=== PATIENT | male | born 1980 | race Caucasian/White ===

== ENCOUNTER 2019-03-25 11:10 | Observation (INO) | payer BC, OTHER ==
[2019-03-25] MEDS ORDERED: MVI, Adult with Vitamin K 10 ML, Thiamine 100 MG, Folic Acid 1 MG in Sodium Chloride 0.... IV ONE ×8 (11:24→12:20)
[2019-03-25] MEDS ORDERED: chlordiazePOXIDE 25 MG Cap PO ONE ×2 (11:25→12:20)
[2019-03-25] MEDS ORDERED: LORazepam 2 MG/ML SDV IVPUSH ONE ×3 (11:25→12:47)
--- NOTE | 2019-03-25 11:32 | EDM.PDOC ---
ED HPI GENERAL MEDICAL PROBLEM - General Chief Complaint: Drug or Alcohol Abuse Stated Complaint: POSSIBLE ALCOHOL POISONING Time Seen by Provider: 03/25/19 11:13 Source of Information: Reports: Patient History Limitations: Reports: No Limitations - History of Present Illness INITIAL COMMENTS - FREE TEXT/NARRATIVE: HISTORY AND PHYSICAL: History of present illness: Patient is a 39-year-old male who presents to the ED today with concern of "overdoing alcohol drinking ". Patient states his last drink was last night at 2 a.m. Patient states he drank 2 L of hard alcohol last night and states he is a daily drinker. Patient states that he has not had withdrawal symptoms before. Patient states that this morning he began shaking and becoming sweaty and anxious. Patient states he does feel slightly short of breath. Patient states he also smokes about one half pack of cigarettes a day and has so for many years as well as chewing tobacco but denies any other substance use. Patient denies fever, chest pain, or cough. Denies headache, neck stiff ness, change in vision, syncope, or near syncope. Denies nausea, vomiting, abdominal pain, diarrhea, constipation, or dysuria. Has not noted any blood in urine or stool. Review of systems: As per history of present illness and below otherwise all systems reviewed and negative. Past medical history: As per history of present illness and as reviewed below otherwise noncontributory. Surgical history: As per history of present illness and as reviewed below otherwise noncontributory. Social history: See social history for further information Family history: As per history of present illness and as reviewed below otherwise noncontributory. Physical exam: General: Patient is alert, oriented, and in no acute distress. Patient laying on exam table but diaphoretic, anxious, and shaking. HEENT: Atraumatic, normocephalic, pupils equal and reactive bilaterally, negative for conjunctival pallor or scleral icterus, mucous membranes moist, TMs normal bilaterally, throat clear, neck supple, nontender, trachea midline. No drooling or trismus noted. No meningeal signs. No hot potato voice noted. Lungs: Clear to auscultation, breath sounds equal bilaterally, chest nontender. Heart: Tachycardic, S1S2, regular rate and rhythm without overt murmur Abdomen: Soft, nondistended, nontender. Negative for masses or hepatosplenomegaly. Negative for costovertebral tenderness. Pelvis: Stable nontender. Genitourinary: Deferred. Rectal: Deferred. Skin: Intact, warm, moist. No lesions or rashes noted. Extremities: Atraumatic, negative for cords or calf pain. Neurovascular unremarkable. Neuro: Awake, alert, oriented. Cranial nerves II through XII unremarkable. Cerebellum unremarkable. Motor and sensory unremarkable throughout. Exam nonfocal. Notes: Dr. Denis verbally involved in patient care. Dr. Wilson, hospitalist crime prevention worker, consulted on patient and will admit to ICU. Voices understanding and is agreeable to plan of care. Denies any further questions or concerns at this time. Diagnostics: CBC, CMP, UA, EKG, chest x-ray, troponin, magnesium, salicylate, acetaminophen, ethanol level, Therapeutics: Banana bag, Librium, Ativan Impression: Acute alcohol withdrawal Transaminitis Plan: 1. Admit to Dr. Wilson to ICU Definitive disposition and diagnosis as appropriate pending reevaluation and review of above. - Related Data Allergies Allergy/AdvReac Type Severity Reaction Status Date / Time Iodinated Contrast Media Allergy Redness Verified 03/25/19 11:14 [Iodinated Contrast Media - IV Dye] morphine Allergy Redness Verified 03/25/19 11:14 shellfish derived Allergy Redness Verified 03/25/19 11:14 Home Meds: Home Meds . [No Known Home Meds] 01/02/15 [History] Past Medical History HEENT History: Reports: None Cardiovascular History: Reports: None Respiratory History: Reports: None Gastrointestinal History: Reports: None Genitourinary History: Reports: None Musculoskeletal History: Reports: Amputation Neurological History: Reports: None Psychiatric History: Reports: None Endocrine/Metabolic History: Reports: None Hematologic History: Reports: None Immunologic History: Reports: None Oncologic (Cancer) History: Reports: None Dermatologic History: Reports: None - Past Surgical History Head Surgeries/Procedures: Reports: None HEENT Surgical History: Reports: None Cardiovascular Surgical History: Reports: None Respiratory Surgical History: Reports: None GI Surgical History: Reports: None Male Surgical History: Reports: None Endocrine Surgical History: Reports: None Neurological Surgical History: Reports: None Musculoskeletal Surgical History: Reports: Other (See Below) Other Musculoskeletal Surgeries/Procedures:: right 2nd toe removed Oncologic Surgical History: Reports: None Dermatological Surgical History: Reports: None Social & Family History - Family History Family Medical History: Noncontributory - Tobacco Use Smoking Status *Q: Current Every Day Smoker Years of Tobacco use: 25 Packs/Tins Daily: 1 - Caffeine Use Caffeine Use: Reports: Energy Drinks - Alcohol Use Days Per Week of Alcohol Use: 7 Number of Drinks Per Day: 2 Total Drinks Per Week: 14 - Recreational Drug Use Recreational Drug Use: No ED ROS GENERAL - Review of Systems Review Of Systems: ROS reveals no pertinent complaints other than HPI. ED EXAM, GENERAL - Physical Exam Exam: See Below (See dictation) Course - Vital Signs Last Recorded V/S: Last Vital Signs Temp 98 F 03/25/19 12:18 Pulse 96 03/25/19 12:18 Resp 13 03/25/19 12:18 BP 156/95 H 03/25/19 12:18 Pulse Ox 95 03/25/19 12:18 - Orders/Labs/Meds Orders: Active Orders 24 hr Category Date Time Status Admission Status [Patient Status] [ADT] Stat ADT 03/25/19 12:46 Ordered EKG Documentation Completion [RC] STAT Care 03/25/19 11:18 Active DRUG SCREEN, URINE [URCHEM] Stat Lab 03/25/19 11:18 Ordered UA RFX ELODIA AND CULT IF INDIC [URIN] Stat Lab 03/25/19 11:17 Ordered MVI, Adult with Vitamin K [Infuvite Adult] 10 ml Med 03/25/19 12:20 Active Thiamine [Vitamin B-1] 100 mg Folic Acid 1 mg Sodium Chloride 0.9% [Normal Saline] 1,000 ml IV ONETIME Medication Orders Multivitamins/Minerals 10 ml/Thiamine HCl 100 mg/ Folic Acid 1 mg/ Sodium Chloride 1,011.2 mls @ 999 mls/hr IV ONETIME ONE Stop: 03/25/19 13:20 Last Admin: 03/25/19 12:19 Dose: 999 mls/hr Labs: Laboratory Tests 03/25/19 03/25/19 03/25/19 Range/Units 11:18 11:20 11:20 WBC 8.22 (4.0-11.0) K/uL RBC 5.34 (4.50-5.90) M/uL Hgb 17.6 H (13.0-17.0) g/dL Hct 48.2 (38.0-50.0) % MCV 90.3 (80.0-98.0) fL MCH 33.0 H (27.0-32.0) pg MCHC 36.5 (31.0-37.0) g/dL RDW Std Deviation 44.7 (28.0-62.0) fl RDW Coeff of Fredis 14 (11.0-15.0) % Plt Count 99 L (150-400) K/uL MPV 11.00 (7.40-12.00) fL Neut % (Auto) 73.1 (48.0-80.0) % Lymph % (Auto) 20.4 (16.0-40.0) % [place] % (Auto) 6.2 (0.0-15.0) % Eos % (Auto) 0.1 (0.0-7.0) % Baso % (Auto) 0.2 (0.0-1.5) % Neut # (Auto) 6.0 H (1.4-5.7) K/uL Lymph # (Auto) 1.7 (0.6-2.4) K/uL [place] # (Auto) 0.5 (0.0-0.8) K/uL Eos # (Auto) 0.0 (0.0-0.7) K/uL Baso # (Auto) 0.0 (0.0-0.1) K/uL Nucleated RBC % 0.0 /100WBC Nucleated RBCs # 0 K/uL INR 0.92 Sodium 129 L (136-148) mmol/L Potassium 3.6 (3.5-5.1) mmol/L Chloride 87 L (98-107) mmol/L Carbon Dioxide 21.1 (21.0-32.0) mmol/L BUN 9 (7.0-18.0) mg/dL Creatinine 0.9 (0.8-1.3) mg/dL Est Cr Clr Drug Dosing 120.95 mL/min Estimated GFR (MDRD) > 60.0 ml/min Glucose 119 H (74-106) mg/dL Calcium 9.8 (8.5-10.1) mg/dL Magnesium 1.3 L (1.8-2.4) mg/dL Total Bilirubin 4.1 H (0.2-1.0) mg/dL AST 237 H (15-37) IU/L ALT 214 H (14-63) IU/L Alkaline Phosphatase 98 (46-116) U/L Troponin I < 0.050 (0.000-0.056) ng/mL Total Protein 8.0 (6.4-8.2) g/dL Albumin 4.5 (3.4-5.0) g/dL Globulin 3.5 (2.6-4.0) g/dL Albumin/Globulin Ratio 1.3 (0.9-1.6) Lipase 172 (73-393) U/L TSH 3rd Generation 2.57 (0.36-3.74) uIU/mL Salicylates <0.2 (0-20) mg/dL Acetaminophen <2.0 ug/mL Ethyl Alcohol 36 mg/dL Meds: Medications Generic Name Dose Route Start Last Admin Trade Name Freq PRN Reason Stop Dose Admin Multivitamins/Minerals 10 ml/ 1,011.2 mls @ 999 mls/hr 03/25/19 12:20 12:19 Thiamine HCl 100 mg/ Folic IV 03/25/19 13:20 999 mls/hr Acid 1 mg/ Sodium Chloride ONETIME ONE Administration Discontinued Medications Generic Name Dose Route Start Last Admin Trade Name Freq PRN Reason Stop Dose Admin Chlordiazepoxide HCl 25 mg 03/25/19 11:25 03/25/19 12:21 Librium PO 03/25/19 11:26 25 mg ONETIME ONE Administration Chlordiazepoxide HCl 25 mg 03/25/19 12:20 03/25/19 12:20 Librium PO 03/25/19 12:21 25 mg ONETIME ONE Administration Multivitamins/Minerals 10 ml/ 1,011.2 mls @ 999 mls/min 03/25/19 11:24 12:47 Thiamine HCl 100 mg/ Folic IV 03/25/19 11:25 Not Given Acid 1 mg/ Sodium Chloride ONETIME ONE Lorazepam 2 mg 03/25/19 11:25 03/25/19 11:29 Ativan IVPUSH 03/25/19 11:26 2 mg ONETIME ONE Administration Lorazepam 1 mg 03/25/19 12:22 03/25/19 12:29 Ativan IVPUSH 03/25/19 12:23 1 mg ONETIME ONE Administration Lorazepam 1 mg 10/30/19 12:47 Ativan IVPUSH 03/25/19 12:48 ONETIME ONE Departure - Departure Time of Disposition: 12:50 Disposition: Refer to Observation Clinical Impression: Alcohol withdrawal Qualifiers: Complication of substance-induced condition: with unspecified complication Qualified Code(s): F10.239 - Alcohol dependence with withdrawal, unspecified - Discharge Information Referrals: PCP,None [Primary Care Provider] - Forms: ED Department Discharge - My Orders Last 24 Hours: My Active Orders 03/25/19 11:17 UA RFX ELODIA AND CULT IF INDIC [URIN] Stat 03/25/19 11:18 EKG Documentation Completion [RC] STAT DRUG SCREEN, URINE [URCHEM] Stat 03/25/19 12:20 MVI, Adult with Vitamin K [Infuvite Adult] 10 ml Thiamine [Vitamin B-1] 100 mg Folic Acid 1 mg Sodium Chloride 0.9% [Normal Saline] 1,000 ml IV ONETIME 03/25/19 12:46 Admission Status [Patient Status] [ADT] Stat - Assessment/Plan Last 24 Hours: My Active Orders 03/25/19 11:17 UA RFX ELODIA AND CULT IF INDIC [URIN] Stat 03/25/19 11:18 EKG Documentation Completion [RC] STAT DRUG SCREEN, URINE [URCHEM] Stat 03/25/19 12:20 MVI, Adult with Vitamin K [Infuvite Adult] 10 ml Thiamine [Vitamin B-1] 100 mg Folic Acid 1 mg Sodium Chloride 0.9% [Normal Saline] 1,000 ml IV ONETIME 03/25/19 12:46 Admission Status [Patient Status] [ADT] Stat
--- NOTE | 2019-03-25 11:53 | CR ---
Chest: AP view of the chest was obtained utilizing portable technique. Comparison: Prior chest x-ray of 01/02/15. Heart size and mediastinum are normal. Lungs are clear. Bony structures are grossly intact. Impression: Nothing acute is appreciated on portable chest x-ray. Diagnostic code #1 MTDD
[2019-03-25 12:23] LABS: ACETAMINOPHEN <2.0 ug/mL; BLOOD UREA NITROGEN,BUN 9 mg/dL (7.0-18.0); CARBON DIOXIDE,CO2 21.1 mmol/L (21.0-32.0); CHLORIDE,CL 87 mmol/L (98-107); GLUCOSE RANDOM 119 mg/dL (74-106); LIPASE 172 U/L (73-393); POTASSIUM,K 3.6 mmol/L (3.5-5.1); SODIUM,NA 129 mmol/L (136-148)
[2019-03-25] MEDS ORDERED: Ondansetron 4 MG Tab.DIS PO PRN (13:05)
[2019-03-25] MEDS ORDERED: Ondansetron 4 MG/2 ML SDV IVPUSH PRN (13:05)
[2019-03-25] MEDS ORDERED: LORazepam 2 MG/ML SDV IVPUSH PRN ×2 (13:09→13:16)
[2019-03-25] MEDS ORDERED: Magnesium Sulfate/Water 2 GM in Premix Bag 1 BAG IV ONE (13:12)
[2019-03-25] MEDS: Sodium Chloride 0.9% 1,000 ML IV ONE ×2 (13:13→14:06)
[2019-03-25] MEDS ORDERED: Potassium Chloride 20 MEQ Tab.ER PO ONE (13:13)
--- NOTE | 2019-03-25 13:19 | PCM.HP.2 ---
H&P History of Present Illness - General Date of Service: 03/25/19 Admit Problem/Dx: Admission Diagnosis/Problem Admission Diagnosis/Problem Alcohol withdrawal syndrome - History of Present Illness Initial Comments - Free Text/Narative: 39 y/o male with history of alcohol abuse. Presented to the ER in alcohol withdrawal. Has been having some nausea, vomiting, epigastric pain. States he drinks when not off work. Last drink was last night. He drank approximately 2 large vodka bottles. Has been endorsing some black stools. No hemoptysis. Smokes 1 ppd. Denies IV drug use. Lives in [place]. Denies any allergies or abdominal surgeries. In the ER, he was noted to be tachycardic, hypertensive requiring several doses of Ativa. EKG showed sinus tachy. No ST changes. Hemocult was negative. - Related Data Allergies/Adverse Reactions: Allergies Allergy/AdvReac Type Severity Reaction Status Date / Time Iodinated Contrast Media Allergy Redness Verified 03/25/19 11:14 [Iodinated Contrast Media - IV Dye] morphine Allergy Redness Verified 03/25/19 11:14 shellfish derived Allergy Redness Verified 03/25/19 11:14 Home Medications: Home Meds . [No Known Home Meds] 01/02/15 [History] Past Medical History HEENT History: Reports: None Cardiovascular History: Reports: None Respiratory History: Reports: None Gastrointestinal History: Reports: None Genitourinary History: Reports: None Musculoskeletal History: Reports: Amputation Neurological History: Reports: None Psychiatric History: Reports: None Endocrine/Metabolic History: Reports: None Hematologic History: Reports: None Immunologic History: Reports: None Oncologic (Cancer) History: Reports: None Dermatologic History: Reports: None - Past Surgical History Head Surgeries/Procedures: Reports: None HEENT Surgical History: Reports: None Cardiovascular Surgical History: Reports: None Respiratory Surgical History: Reports: None GI Surgical History: Reports: None Male Surgical History: Reports: None Endocrine Surgical History: Reports: None Neurological Surgical History: Reports: None Musculoskeletal Surgical History: Reports: Other (See Below) Other Musculoskeletal Surgeries/Procedures:: right 2nd toe removed Oncologic Surgical History: Reports: None Dermatological Surgical History: Reports: None Social & Family History - Family History Family Medical History: Noncontributory - Tobacco Use Smoking Status *Q: Current Every Day Smoker Years of Tobacco use: 25 Packs/Tins Daily: 1 - Caffeine Use Caffeine Use: Reports: Energy Drinks - Alcohol Use Days Per Week of Alcohol Use: 7 Number of Drinks Per Day: 2 Total Drinks Per Week: 14 - Recreational Drug Use Recreational Drug Use: No H&P Review of Systems - Review of Systems: Review Of Systems: ROS reveals no pertinent complaints other than HPI. Exam - Exam Exam: See Below - Vital Signs Vital Signs: Last Vital Signs Temp 36.6 C 03/25/19 12:18 Pulse 96 03/25/19 12:18 Resp 13 03/25/19 12:18 BP 156/95 H 03/25/19 12:18 Pulse Ox 95 03/25/19 12:18 Weight: 85.2 kg - Exam General: Alert, Oriented, Cooperative, Other (tremulous and diaphoretic) HEENT: Scleral Icterus, Other (dry oral mucosa) Lungs: Clear to Auscultation, Normal Respiratory Effort. No: Crackles, Wheezing Cardiovascular: Regular Rhythm, Tachycardia GI/Abdominal Exam: Other (epigastric pain. No RUQ pain. ) Rectal (Males) Exam: Heme - Stool Extremities: Non-Tender, No Pedal Edema Skin: Warm, Moist Neuro Extensive - Mental Status: Alert, Oriented x3 - Patient Data Lab Results Last 24 hrs: Laboratory Results - last 24 hr 03/25/19 03/25/19 03/25/19 Range/Units 11:18 11:20 11:20 WBC 8.22 (4.0-11.0) K/uL RBC 5.34 (4.50-5.90) M/uL Hgb 17.6 H (13.0-17.0) g/dL Hct 48.2 (38.0-50.0) % MCV 90.3 (80.0-98.0) fL MCH 33.0 H (27.0-32.0) pg MCHC 36.5 (31.0-37.0) g/dL RDW Std Deviation 44.7 (28.0-62.0) fl RDW Coeff of Fredis 14 (11.0-15.0) % Plt Count 99 L (150-400) K/uL MPV 11.00 (7.40-12.00) fL Neut % (Auto) 73.1 (48.0-80.0) % Lymph % (Auto) 20.4 (16.0-40.0) % [place] % (Auto) 6.2 (0.0-15.0) % Eos % (Auto) 0.1 (0.0-7.0) % Baso % (Auto) 0.2 (0.0-1.5) % Neut # (Auto) 6.0 H (1.4-5.7) K/uL Lymph # (Auto) 1.7 (0.6-2.4) K/uL [place] # (Auto) 0.5 (0.0-0.8) K/uL Eos # (Auto) 0.0 (0.0-0.7) K/uL Baso # (Auto) 0.0 (0.0-0.1) K/uL Nucleated RBC % 0.0 /100WBC Nucleated RBCs # 0 K/uL INR 0.92 Sodium 129 L (136-148) mmol/L Potassium 3.6 (3.5-5.1) mmol/L Chloride 87 L (98-107) mmol/L Carbon Dioxide 21.1 (21.0-32.0) mmol/L BUN 9 (7.0-18.0) mg/dL Creatinine 0.9 (0.8-1.3) mg/dL Est Cr Clr Drug Dosing 120.95 mL/min Estimated GFR (MDRD) > 60.0 ml/min Glucose 119 H (74-106) mg/dL Calcium 9.8 (8.5-10.1) mg/dL Magnesium 1.3 L (1.8-2.4) mg/dL Total Bilirubin 4.1 H (0.2-1.0) mg/dL AST 237 H (15-37) IU/L ALT 214 H (14-63) IU/L Alkaline Phosphatase 98 (46-116) U/L Troponin I < 0.050 (0.000-0.056) ng/mL Total Protein 8.0 (6.4-8.2) g/dL Albumin 4.5 (3.4-5.0) g/dL Globulin 3.5 (2.6-4.0) g/dL Albumin/Globulin Ratio 1.3 (0.9-1.6) Lipase 172 (73-393) U/L TSH 3rd Generation 2.57 (0.36-3.74) uIU/mL Salicylates <0.2 (0-20) mg/dL Acetaminophen <2.0 ug/mL Ethyl Alcohol 36 mg/dL Result Diagrams: 03/25/19 11:20 03/25/19 11:20 Problem List Initiated/Reviewed/Updated: Yes Orders Last 24hrs: Active Orders 24 hr Category Date Time Status Admission Status [Patient Status] [ADT] Stat ADT 03/25/19 12:46 Active Antiembolic Devices [RC] PER UNIT ROUTINE Care 03/25/19 13:07 Ordered Bedrest Bathroom Privileges [RC] ASDIRECTED Care 03/25/19 13:05 Ordered CIWAA Assessment [RC] Q4H Care 03/25/19 13:10 Ordered Cardiac Monitoring [RC] CONTINUOUS Care 03/25/19 13:06 Ordered EKG Documentation Completion [RC] STAT Care 03/25/19 11:18 Active Fecal Occult Blood Collection [RC] ASDIRECTED Care 03/25/19 13:15 Ordered Intake and Output [RC] QSHIFT Care 03/25/19 13:06 Ordered Oxygen Therapy [RC] PRN Care 03/25/19 13:06 Ordered VTE/DVT Education [RC] PER UNIT ROUTINE Care 03/25/19 13:06 Ordered Vital Signs [RC] Q4H Care 03/25/19 13:06 Ordered Nothing per Oral Now Diet [DIET] Diet 03/25/19 Dinner Ordered CBC WITH AUTO DIFF [HEME] AM Lab 03/26/19 05:11 Ordered CBC WITH AUTO DIFF [HEME] AM Lab 03/27/19 05:11 Ordered COMPREHENSIVE METABOLIC PN,CMP [CHEM] AM Lab 03/26/19 05:11 Ordered COMPREHENSIVE METABOLIC PN,CMP [CHEM] AM Lab 03/27/19 05:11 Ordered DRUG SCREEN, URINE [URCHEM] Stat Lab 03/25/19 11:18 Ordered MAGNESIUM [CHEM] AM Lab 03/26/19 05:11 Ordered UA RFX ELODIA AND CULT IF INDIC [URIN] Stat Lab 03/25/19 11:17 Ordered Folic Acid Med 03/25/19 21:00 Ordered 1 mg PO BEDTIME LORazepam [Ativan] Med 03/25/19 13:16 Ordered 2 mg IVPUSH ONETIME PRN LORazepam [Ativan] Med 03/25/19 13:09 Ordered See Protocol IVPUSH Q4H PRN MVI, Adult with Vitamin K [Infuvite Adult] 10 ml Med 03/25/19 12:20 Active Thiamine [Vitamin B-1] 100 mg Folic Acid 1 mg Sodium Chloride 0.9% [Normal Saline] 1,000 ml IV ONETIME Magnesium Sulfate/Water [Magnesium Sulfate in Water Med 03/25/19 13:12 Ordered Premix] 2 gm Premix Bag 1 bag IV ONETIME Nicotine [Habitrol] Med 03/25/19 13:15 Ordered 14 mg TRDERM DAILY Ondansetron [Zofran ODT] Med 03/25/19 13:05 Ordered 4 mg PO Q4H PRN Ondansetron [Zofran] Med 03/25/19 13:05 Ordered 4 mg IVPUSH Q4H PRN Pantoprazole [ProTONIX IV] 40 mg Med 03/25/19 13:15 Ordered Sodium Chloride 0.9% [Normal Saline] 10 ml IV Q12H Sodium Chloride 0.9% [Normal Saline] 1,000 ml Med 03/25/19 13:08 Ordered IV STAT Thiamine [Vitamin B-1] Med 03/25/19 21:00 Ordered 100 mg PO BEDTIME Sequential Compression Device [OM.PC] Per Unit Routine Oth 03/25/19 13:07 Ordered Resuscitation Status Routine Resus Stat 03/25/19 13:05 Ordered Medication Orders Folic Acid (Folic Acid) 1 mg PO BEDTIME KRISTIN Multivitamins/Minerals 10 ml/Thiamine HCl 100 mg/ Folic Acid 1 mg/ Sodium Chloride 1,011.2 mls @ 999 mls/hr IV ONETIME ONE Stop: 03/25/19 13:20 Last Admin: 03/25/19 12:19 Dose: 999 mls/hr Sodium Chloride (Normal Saline) 1,000 mls @ 999 mls/hr IV STAT ONE Stop: 03/25/19 14:08 Last Admin: 03/25/19 13:13 Dose: 999 mls/hr Pantoprazole Sodium 40 mg/ (Sodium Chloride) 10 mls @ 300 mls/hr IV Q12H KRISTIN Magnesium Sulfate 2 gm/ Premix 50 mls @ 25 mls/hr IV ONETIME ONE Stop: 03/25/19 15:11 Lorazepam (Ativan) 0 mg IVPUSH Q4H PRN; Protocol PRN Reason: Withdrawal Symptoms Lorazepam (Ativan) 2 mg IVPUSH ONETIME PRN PRN Reason: Seizures Nicotine (Habitrol) 14 mg TRDERM DAILY KRISTIN Ondansetron HCl (Zofran Odt) 4 mg PO Q4H PRN PRN Reason: nausea, able to take PO Ondansetron HCl (Zofran) 4 mg IVPUSH Q4H PRN PRN Reason: Nausea Thiamine HCl (Vitamin B-1) 100 mg PO BEDTIME KRISTIN Assessment/Plan Comment:: A: 1. Acute alcohol withdrawal 2. Acute alcoholic hepatitis 3. Hyperbilirubinemia 4. Elevated liver enzymes 5. Hyponatremia 6. Hypertension 7. Alcohol abuse 8. Tobacco abuse P: 1. Acute alcohol withdrawal- will keep NPO except meds for now. CIWA, Ativan PRN for withdrawal symptoms. Ordered occult stool study since patient endorsing black stools. Will recheck H/H later today. 2. Acute alcoholic hepatitis- will get RUQ U/S to assess gallbladder. Continue to monitor LFTs. 3. Hyponatremia- likely secondary to dehydration. Will hydrate with IV NS and continue to monitor. 4. Hypertension- likely 2/2 alcohol withdrawal. Will monitor for now. 5. Tobacco abuse- ordered nicotine patch. Dispo: 1-2 days.
[2019-03-25] MEDS: Pantoprazole 40 MG in Sodium Chloride 0.9% 10 ML IV SCH (14:08)
[2019-03-25] MEDS: Nicotine 14 MG/24 Hr Patch TRDERM SCH (14:08)
--- NOTE | 2019-03-25 14:20 | US ---
Limited abdominal ultrasound: Multiple real-time images of the abdomen were obtained. Comparison: No previous abdominal imaging. Findings: Liver shows no focal abnormality but is slightly echogenic. No focal abnormality is seen within the liver. Gallbladder contains no shadowing gallstones. No gallbladder wall thickening or biliary duct dilatation is seen. Sludge is noted within the gallbladder Right kidney shows a small cystic area centrally which most likely is due to a small parapelvic cyst. Right kidney is otherwise unremarkable in appearance. Right kidney length is 11.8 cm. Pancreas is obscured from bowel gas. Impression: 1. Fatty infiltration within the liver. 2. Sludge within the gallbladder. 3. Obscured gallbladder due to bowel gas. 4. Small parapelvic cyst within the right kidney. Diagnostic code #3 MTDD
[2019-03-25] MEDS ORDERED: Sodium Chloride 0.9% 1,000 ML IV ONE (14:55)
[2019-03-25] MEDS: Sodium Chloride 0.9% 1,000 ML IV SCH ×2 (16:05→22:33)
[2019-03-25] MEDS ORDERED: Thiamine 100 MG Tab PO SCH (21:00)
[2019-03-25] MEDS ORDERED: Folic Acid 1 MG Tab PO SCH (21:00)
[2019-03-25] MEDS: Diazepam 5 MG Tab PO SCH (21:17)
[2019-03-26] MEDS: Pantoprazole 40 MG in Sodium Chloride 0.9% 10 ML IV SCH (01:50)
[2019-03-26] MEDS: Diazepam 5 MG Tab PO SCH (05:43)
[2019-03-26] MEDS: Sodium Chloride 0.9% 1,000 ML IV SCH (06:36)
[2019-03-26 06:39] LABS: BLOOD UREA NITROGEN,BUN 11 mg/dL (7.0-18.0); CARBON DIOXIDE,CO2 22.4 mmol/L (21.0-32.0); CHLORIDE,CL 104 mmol/L (98-107); GLUCOSE RANDOM 82 mg/dL (74-106); POTASSIUM,K 3.8 mmol/L (3.5-5.1); SODIUM,NA 141 mmol/L (136-148)
[2019-03-26] MEDS: Nicotine 14 MG/24 Hr Patch TRDERM SCH (09:09)
[2019-03-26 11:15] VITALS: BP 138/86; PULSE 81
--- NOTE | 2019-03-26 11:37 | PCM.DCSUM1 ---
Discharge Summary - Hospital Course Free Text/Narrative:: 39 y/o male with history of alcohol abuse who presented to the ER complaining of nausea, vomiting. He was admitted for acute alcohol withdrawal, acute alcoholic hepatitis. Total bilirubin 4, AST, ALT 200's. Alcohol level was 36. Right upper quadrant ultrasound was negative for any gallstones. Showed biliary sludge and fatty liver. He was aggressively hydrated with normal saline. He was started on protonix 40 mg IV Q12 for possible GI bleed. Hemoglobin levels remained stable, Hg 15. He was started on diazepam and lorazepam PRN for withdrawal symptoms. CIWA remained less than 8. Symptoms were much improved the next morning. He was tolerating PO intake. Discharge home on thiamine, folic acid supplements. Advised to abstain from alcohol and any mood altering substances. Follow-up with PCP in 1-2 weeks. - Discharge Data Discharge Date: 03/26/19 Discharge Disposition: Home, Self-Care 01 Condition: Stable - Referral to Home Health Primary Care Physician: PCP None - Patient Instructions Diet: Regular Diet as Tolerated Activity: As Tolerated Notify Provider of: Fever, Increased Pain, Swelling and Redness, Nausea and/or Vomiting Other/Special Instructions: Please, abstain from alcohol and any mood altering subtances. - Discharge Plan *PRESCRIPTION DRUG MONITORING PROGRAM REVIEWED*: Not Applicable *COPY OF PRESCRIPTION DRUG MONITORING REPORT IN PATIENT CLEM: Not Applicable Prescriptions/Med Rec: Folic Acid 1 mg PO BEDTIME #30 tablet Thiamine [Vitamin B-1] 100 mg PO BEDTIME #30 tablet Home Medications: Home Meds Folic Acid 1 mg PO BEDTIME #30 tablet 03/26/19 [Rx] Thiamine [Vitamin B-1] 100 mg PO BEDTIME #30 tablet 03/26/19 [Rx] Patient Handouts: Alcohol Use Disorder, Binge-Drinking Information, Adult, Alcohol Intoxication, [id number], Alcohol Withdrawal Syndrome, [id number] Referrals: Santo ePrea MD [Resident] - Debbi Conroy,[facility] [Ordering Only Provider] - - Discharge Summary/Plan Comment DC Time >30 min.: No - Patient Data Vitals - Most Recent: Last Vital Signs Temp 36.3 C 03/26/19 09:02 Pulse 81 03/26/19 11:12 Resp 22 H 03/26/19 11:12 BP 138/86 03/26/19 11:12 Pulse Ox 95 10/31/19 11:12 Weight - Most Recent: 79.6 kg I&O - Last 24 hours: Intake & Output 03/25/19 03/26/19 03/26/19 22:59 06:59 14:59 Intake Total 50 2847 Output Total 600 Balance -437 2847 Lab Results - Last 24 hrs: Laboratory Results - last 24 hr 03/25/19 03/25/19 03/25/19 Range/Units 11:18 11:20 13:43 WBC (4.0-11.0) K/uL RBC (4.50-5.90) M/uL Hgb (13.0-17.0) g/dL Hct (38.0-50.0) % MCV (80.0-98.0) fL MCH (27.0-32.0) pg MCHC (31.0-37.0) g/dL RDW Std Deviation (28.0-62.0) fl RDW Coeff of Fredis (11.0-15.0) % Plt Count (150-400) K/uL MPV (7.40-12.00) fL Neut % (Auto) (48.0-80.0) % Lymph % (Auto) (16.0-40.0) % [place] % (Auto) (0.0-15.0) % Eos % (Auto) (0.0-7.0) % Baso % (Auto) (0.0-1.5) % Neut # (Auto) (1.4-5.7) K/uL Lymph # (Auto) (0.6-2.4) K/uL [place] # (Auto) (0.0-0.8) K/uL Eos # (Auto) (0.0-0.7) K/uL Baso # (Auto) (0.0-0.1) K/uL Nucleated RBC % /100WBC Nucleated RBCs # K/uL INR 0.92 Sodium 129 L (136-148) mmol/L Potassium 3.6 (3.5-5.1) mmol/L Chloride 87 L (98-107) mmol/L Carbon Dioxide 21.1 (21.0-32.0) mmol/L BUN 9 (7.0-18.0) mg/dL Creatinine 0.9 (0.8-1.3) mg/dL Est Cr Clr Drug Dosing 120.95 mL/min Estimated GFR (MDRD) > 60.0 ml/min Glucose 119 H (74-106) mg/dL Calcium 9.8 (8.5-10.1) mg/dL Magnesium 1.3 L (1.8-2.4) mg/dL Total Bilirubin 4.1 H (0.2-1.0) mg/dL AST 237 H (15-37) IU/L ALT 214 H (14-63) IU/L Alkaline Phosphatase 98 (46-116) U/L Troponin I < 0.050 (0.000-0.056) ng/mL Total Protein 8.0 (6.4-8.2) g/dL Albumin 4.5 (3.4-5.0) g/dL Globulin 3.5 (2.6-4.0) g/dL Albumin/Globulin Ratio 1.3 (0.9-1.6) Lipase 172 (73-393) U/L TSH 3rd Generation 2.57 (0.36-3.74) uIU/mL Urine Color YELLOW Urine Appearance CLEAR Urine pH 6.5 (5.0-8.0) Ur Specific [place] <= 1.005 (1.001-1.035) Urine Protein NEGATIVE (NEGATIVE) mg/dL Urine Glucose (UA) NEGATIVE (NEGATIVE) mg/dL Urine Ketones 15 H (NEGATIVE) mg/dL Urine Occult Blood NEGATIVE (NEGATIVE) Urine Nitrite NEGATIVE (NEGATIVE) Urine Bilirubin NEGATIVE (NEGATIVE) Urine Urobilinogen 0.2 (<2.0) EU/dL Ur Leukocyte Esterase NEGATIVE (NEGATIVE) Salicylates <0.2 (0-20) mg/dL Urine Opiates Screen (NEGATIVE) Ur Oxycodone Screen (NEGATIVE) Urine Methadone Screen (NEGATIVE) Acetaminophen <2.0 ug/mL Ur Barbiturates Screen (NEGATIVE) Ur Phencyclidine Scrn (NEGATIVE) Ur Amphetamine Screen (NEGATIVE) U Methamphetamines Scrn (NEGATIVE) U Benzodiazepines Scrn (NEGATIVE) U Cocaine Metab Screen (NEGATIVE) U Marijuana (THC) Screen (NEGATIVE) Ethyl Alcohol 36 mg/dL 03/25/19 03/25/19 03/26/19 Range/Units 13:43 17:35 05:56 WBC 7.01 (4.0-11.0) K/uL RBC 5.00 (4.50-5.90) M/uL Hgb 15.5 16.5 (13.0-17.0) g/dL Hct 44.1 47.3 (38.0-50.0) % MCV 94.6 (80.0-98.0) fL MCH 33.0 H (27.0-32.0) pg MCHC 34.9 (31.0-37.0) g/dL RDW Std Deviation 50.1 (28.0-62.0) fl RDW Coeff of Fredis 14 (11.0-15.0) % Plt Count 66 L (150-400) K/uL MPV 12.00 (7.40-12.00) fL Neut % (Auto) 64.4 (48.0-80.0) % Lymph % (Auto) 29.0 (16.0-40.0) % [place] % (Auto) 5.6 (0.0-15.0) % Eos % (Auto) 0.9 (0.0-7.0) % Baso % (Auto) 0.1 (0.0-1.5) % Neut # (Auto) 4.5 (1.4-5.7) K/uL Lymph # (Auto) 2.0 (0.6-2.4) K/uL [place] # (Auto) 0.4 (0.0-0.8) K/uL Eos # (Auto) 0.1 (0.0-0.7) K/uL Baso # (Auto) 0.0 (0.0-0.1) K/uL Nucleated RBC % 0.0 /100WBC Nucleated RBCs # 0 K/uL INR Sodium (136-148) mmol/L Potassium (3.5-5.1) mmol/L Chloride (98-107) mmol/L Carbon Dioxide (21.0-32.0) mmol/L BUN (7.0-18.0) mg/dL Creatinine (0.8-1.3) mg/dL Est Cr Clr Drug Dosing mL/min Estimated GFR (MDRD) ml/min Glucose (74-106) mg/dL Calcium (8.5-10.1) mg/dL Magnesium (1.8-2.4) mg/dL Total Bilirubin (0.2-1.0) mg/dL AST (15-37) IU/L ALT (14-63) IU/L Alkaline Phosphatase (46-116) U/L Troponin I (0.000-0.056) ng/mL Total Protein (6.4-8.2) g/dL Albumin (3.4-5.0) g/dL Globulin (2.6-4.0) g/dL Albumin/Globulin Ratio (0.9-1.6) Lipase (73-393) U/L TSH 3rd Generation (0.36-3.74) uIU/mL Urine Color Urine Appearance Urine pH (5.0-8.0) Ur Specific [place] (1.001-1.035) Urine Protein (NEGATIVE) mg/dL Urine Glucose (UA) (NEGATIVE) mg/dL Urine Ketones (NEGATIVE) mg/dL Urine Occult Blood (NEGATIVE) Urine Nitrite (NEGATIVE) Urine Bilirubin (NEGATIVE) Urine Urobilinogen (<2.0) EU/dL Ur Leukocyte Esterase (NEGATIVE) Salicylates (0-20) mg/dL Urine Opiates Screen NEGATIVE (NEGATIVE) Ur Oxycodone Screen NEGATIVE (NEGATIVE) Urine Methadone Screen NEGATIVE (NEGATIVE) Acetaminophen ug/mL Ur Barbiturates Screen NEGATIVE (NEGATIVE) Ur Phencyclidine Scrn NEGATIVE (NEGATIVE) Ur Amphetamine Screen NEGATIVE (NEGATIVE) U Methamphetamines Scrn NEGATIVE (NEGATIVE) U Benzodiazepines Scrn NEGATIVE (NEGATIVE) U Cocaine Metab Screen NEGATIVE (NEGATIVE) U Marijuana (THC) Screen NEGATIVE (NEGATIVE) Ethyl Alcohol mg/dL 03/26/19 03/26/19 Range/Units 05:56 05:56 WBC (4.0-11.0) K/uL RBC (4.50-5.90) M/uL Hgb (13.0-17.0) g/dL Hct (38.0-50.0) % MCV (80.0-98.0) fL MCH (27.0-32.0) pg MCHC (31.0-37.0) g/dL RDW Std Deviation (28.0-62.0) fl RDW Coeff of Fredis (11.0-15.0) % Plt Count (150-400) K/uL MPV (7.40-12.00) fL Neut % (Auto) (48.0-80.0) % Lymph % (Auto) (16.0-40.0) % [place] % (Auto) (0.0-15.0) % Eos % (Auto) (0.0-7.0) % Baso % (Auto) (0.0-1.5) % Neut # (Auto) (1.4-5.7) K/uL Lymph # (Auto) (0.6-2.4) K/uL [place] # (Auto) (0.0-0.8) K/uL Eos # (Auto) (0.0-0.7) K/uL Baso # (Auto) (0.0-0.1) K/uL Nucleated RBC % /100WBC Nucleated RBCs # K/uL INR 0.97 Sodium 141 (136-148) mmol/L Potassium 3.8 (3.5-5.1) mmol/L Chloride 104 (98-107) mmol/L Carbon Dioxide 22.4 (21.0-32.0) mmol/L BUN 11 (7.0-18.0) mg/dL Creatinine 0.8 (0.8-1.3) mg/dL Est Cr Clr Drug Dosing 136.07 mL/min Estimated GFR (MDRD) > 60.0 ml/min Glucose 82 (74-106) mg/dL Calcium 8.5 (8.5-10.1) mg/dL Magnesium 1.8 (1.8-2.4) mg/dL Total Bilirubin 3.0 H (0.2-1.0) mg/dL AST 186 H (15-37) IU/L ALT 176 H (14-63) IU/L Alkaline Phosphatase 74 (46-116) U/L Troponin I (0.000-0.056) ng/mL Total Protein 6.6 (6.4-8.2) g/dL Albumin 3.6 (3.4-5.0) g/dL Globulin 3.0 (2.6-4.0) g/dL Albumin/Globulin Ratio 1.2 (0.9-1.6) Lipase (73-393) U/L TSH 3rd Generation (0.36-3.74) uIU/mL Urine Color Urine Appearance Urine pH (5.0-8.0) Ur Specific [place] (1.001-1.035) Urine Protein (NEGATIVE) mg/dL Urine Glucose (UA) (NEGATIVE) mg/dL Urine Ketones (NEGATIVE) mg/dL Urine Occult Blood (NEGATIVE) Urine Nitrite (NEGATIVE) Urine Bilirubin (NEGATIVE) Urine Urobilinogen (<2.0) EU/dL Ur Leukocyte Esterase (NEGATIVE) Salicylates (0-20) mg/dL Urine Opiates Screen (NEGATIVE) Ur Oxycodone Screen (NEGATIVE) Urine Methadone Screen (NEGATIVE) Acetaminophen ug/mL Ur Barbiturates Screen (NEGATIVE) Ur Phencyclidine Scrn (NEGATIVE) Ur Amphetamine Screen (NEGATIVE) U Methamphetamines Scrn (NEGATIVE) U Benzodiazepines Scrn (NEGATIVE) U Cocaine Metab Screen (NEGATIVE) U Marijuana (THC) Screen (NEGATIVE) Ethyl Alcohol mg/dL ELODIA Results - Last 24 hrs: Microbiology 03/25/19 19:02 Stool Occult Blood (ELODIA) - Final Stool / Feces NEGATIVE OCCULT BLOOD REFERENCE RANGE: NEGATIVE Med Orders - Current: Current Medications Diazepam (Valium.) 5 mg PO TID [facility] Last Admin: 03/26/19 05:43 Dose: 5 mg Folic Acid (Folic Acid) 1 mg PO BEDTIME [facility] Last Admin: 03/25/19 21:17 Dose: 1 mg Pantoprazole Sodium 40 mg/ (Sodium Chloride) 10 mls @ 300 mls/hr IV Q12H [facility] Last Admin: 03/26/19 01:50 Dose: 300 mls/hr Sodium Chloride (Normal Saline) 1,000 mls @ 125 mls/hr IV STAT [facility] Last Admin: 03/26/19 06:36 Dose: 125 mls/hr Lorazepam (Ativan) 0 mg IVPUSH Q4H PRN; Protocol PRN Reason: Withdrawal Symptoms Lorazepam (Ativan) 2 mg IVPUSH ONETIME PRN PRN Reason: Seizures Nicotine (Habitrol) 14 mg TRDERM DAILY [facility] Last Admin: 03/26/19 09:09 Dose: 14 mg Ondansetron HCl (Zofran Odt) 4 mg PO Q4H PRN PRN Reason: nausea, able to take PO Ondansetron HCl (Zofran) 4 mg IVPUSH Q4H PRN PRN Reason: Nausea Thiamine HCl (Vitamin B-1) 100 mg PO BEDTIME [facility] Last Admin: 03/25/19 21:17 Dose: 100 mg Discontinued Medications Chlordiazepoxide HCl (Librium) 25 mg PO ONETIME ONE Stop: 03/25/19 11:26 Last Admin: 03/25/19 12:21 Dose: 25 mg Chlordiazepoxide HCl (Librium) 25 mg PO ONETIME ONE Stop: 03/25/19 12:21 Last Admin: 03/25/19 12:20 Dose: 25 mg Multivitamins/Minerals 10 ml/Thiamine HCl 100 mg/ Folic Acid 1 mg/ Sodium Chloride 1,011.2 mls @ 999 mls/min IV ONETIME ONE Stop: 03/25/19 11:25 Last Admin: 03/25/19 12:47 Dose: Not Given Multivitamins/Minerals 10 ml/Thiamine HCl 100 mg/ Folic Acid 1 mg/ Sodium Chloride 1,011.2 mls @ 999 mls/hr IV ONETIME ONE Stop: 03/25/19 13:20 Last Admin: 03/25/19 12:19 Dose: 999 mls/hr Sodium Chloride (Normal Saline) 1,000 mls @ 999 mls/hr IV STAT ONE Stop: 03/25/19 14:08 Last Admin: 03/25/19 14:06 Dose: 999 mls/hr Magnesium Sulfate 2 gm/ Premix 50 mls @ 25 mls/hr IV ONETIME ONE Stop: 03/25/19 15:11 Last Admin: 03/25/19 14:07 Dose: 25 mls/hr Sodium Chloride (Normal Saline) 1,000 mls @ 999 mls/hr IV STAT ONE Stop: 03/25/19 15:55 Last Admin: 03/25/19 15:01 Dose: 999 mls/hr Lorazepam (Ativan) 2 mg IVPUSH ONETIME ONE Stop: 03/25/19 11:26 Last Admin: 03/25/19 11:29 Dose: 2 mg Lorazepam (Ativan) 1 mg IVPUSH ONETIME ONE Stop: 03/25/19 12:23 Last Admin: 03/25/19 12:29 Dose: 1 mg Lorazepam (Ativan) 1 mg IVPUSH ONETIME ONE Stop: 03/25/19 12:48 Last Admin: 03/25/19 12:59 Dose: 1 mg Potassium Chloride (Klor-Con M20) 40 meq PO ONETIME ONE Stop: 03/25/19 13:14 Last Admin: 03/25/19 14:07 Dose: 40 meq
== END 2019-03-26 11:55 | disposition home or self-care (01) ==
LOC: MW.ED 11:10 → MW.ICU 12:46
PROVIDERS: ADMIT Student in an Organized Health Care Education/Training Program; ATTEND Student in an Organized Health Care Education/Training Program
DX: F10.239 Alcohol dependence with withdrawal, unspecified (principal); K70.10 Alcoholic hepatitis without ascites; K76.0 Fatty (change of) liver, not elsewhere classified; K83.8 Other specified diseases of biliary tract; I10 Essential (primary) hypertension; E80.6 Other disorders of bilirubin metabolism; E87.1 Hypo-osmolality and hyponatremia; F17.210 Nicotine dependence, cigarettes, uncomplicated; Z88.5 Allergy status to narcotic agent; Z91.013 Allergy to seafood; Z91.041 Radiographic dye allergy status
CPT/HCPCS: 36415; 71045; 71045-26; 76705; 76705-26; 80053; 80305-QW; 81003; 82272; 83690; 83735; 84443; 84484; 85014; 85018; 85025; 85610; 93005; 96361; 96365; 96366; 96367; 96375; 96376; 99284; 99285-25; A9270-GY; C9113; G0378; G0480; J2060; J3411; J3475; J7040; J7050

== ENCOUNTER 2019-07-24 14:47 | Emergency (ER) | payer BC ==
[2019-07-24] MEDS ORDERED: Sodium Chloride 0.9% 1,000 ML IV ONE (16:34)
[2019-07-24 16:40] LABS: BLOOD UREA NITROGEN,BUN 8 mg/dL (7.0-18.0); CARBON DIOXIDE,CO2 26.2 mmol/L (21.0-32.0); CHLORIDE,CL 97 mmol/L (98-107); GLUCOSE RANDOM 92 mg/dL (74-106); LIPASE 141 U/L (73-393); POTASSIUM,K 3.4 mmol/L (3.5-5.1); SODIUM,NA 135 mmol/L (136-148)
[2019-07-24] MEDS ORDERED: diphenhydrAMINE 50 MG/ML SDV IVPUSH ONE (16:41)
[2019-07-24] MEDS ORDERED: Morphine 4 MG/ML Syringe IVPUSH ONE (16:42)
[2019-07-24] MEDS ORDERED: Ondansetron 4 MG/2 ML SDV IVPUSH ONE (16:43)
--- NOTE | 2019-07-24 16:50 | EDM.PDOC ---
ED HPI GENERAL MEDICAL PROBLEM - General Chief Complaint: Abdominal Pain Stated Complaint: PAIN ON LFT SIDE Time Seen by Provider: 07/24/19 16:00 Source of Information: Reports: Patient History Limitations: Reports: No Limitations - History of Present Illness INITIAL COMMENTS - FREE TEXT/NARRATIVE: This 39 year old male is admitted to the ED with a chief complaint of left upper quad abdominal pain over the past two to three months but got worse today. He states that the pain is constant and is sharp to dull. He complains of nausea but no vomiting. He denies any other complaints at this time. He states that he does not have an allergy to Morphine or Dilaudid or IV dye. He states that he can eat shellfish in small amounts and it does not bother him but in large amounts he will sometimes break out. Onset: Gradual (two to three months) Duration: Constant (sharp pain in the left upper quad of his abdomen), Getting Worse left upper abdomen Pain Score (Numeric/FACES): 5 - Related Data Allergies Allergy/AdvReac Type Severity Reaction Status Date / Time shellfish derived Allergy Redness Verified 07/24/19 15:08 Home Meds: Home Meds Pantoprazole Sodium [Protonix] 40 mg PO DAILY 60 Days #60 tablet. 07/24/19 [Rx ] Past Medical History HEENT History: Reports: None Cardiovascular History: Reports: None Respiratory History: Reports: None Gastrointestinal History: Reports: None Genitourinary History: Reports: None Musculoskeletal History: Reports: Amputation Neurological History: Reports: None Psychiatric History: Reports: None Endocrine/Metabolic History: Reports: None Hematologic History: Reports: None Immunologic History: Reports: None Oncologic (Cancer) History: Reports: None Dermatologic History: Reports: None - Past Surgical History Head Surgeries/Procedures: Reports: None HEENT Surgical History: Reports: None Cardiovascular Surgical History: Reports: None Respiratory Surgical History: Reports: None GI Surgical History: Reports: None Male Surgical History: Reports: None Endocrine Surgical History: Reports: None Neurological Surgical History: Reports: None Musculoskeletal Surgical History: Reports: Other (See Below) Other Musculoskeletal Surgeries/Procedures:: right 2nd toe removed Oncologic Surgical History: Reports: None Dermatological Surgical History: Reports: None Social & Family History - Family History Family Medical History: Noncontributory - Tobacco Use Smoking Status *Q: Current Every Day Smoker Years of Tobacco use: 25 Packs/Tins Daily: 1 - Caffeine Use Caffeine Use: Reports: Energy Drinks - Recreational Drug Use Recreational Drug Use: No ED ROS GENERAL - Review of Systems Review Of Systems: See Below Constitutional: Reports: No Symptoms HEENT: Reports: No Symptoms Respiratory: Reports: No Symptoms Cardiovascular: Reports: No Symptoms Endocrine: Reports: No Symptoms GI/Abdominal: Reports: Abdominal Pain, Nausea : Reports: No Symptoms Skin: Reports: No Symptoms Neurological: Reports: No Symptoms ED EXAM, GI/ABD - Physical Exam Exam: See Below Exam Limited By: No Limitations General Appearance: Alert, WD/WN, No Apparent Distress Eyes: Bilateral: Normal Appearance, EOMI Throat/Mouth: Normal Inspection, Normal Lips, Normal Teeth, Normal Gums, Normal Oropharynx, Normal Voice, No Airway Compromise Head: Atraumatic, Normocephalic Neck: Normal Inspection, Supple, Non-Tender, Full Range of Motion Respiratory/Chest: No Respiratory Distress, Lungs Clear, Normal Breath Sounds, No Accessory Muscle Use, Chest Non-Tender Cardiovascular: Normal Peripheral Pulses, Regular Rate, Rhythm, No Edema, No Gallop, No JVD, No Murmur, No Rub GI/Abdominal Exam: Normal Bowel Sounds, Soft, No Organomegaly, No Distention, No Mass, Tender (that is mild in the left upper abdomen extending around to the left flank) (Male) Exam: Deferred Rectal (Males) Exam: Deferred Back Exam: Normal Inspection Extremities: Normal Inspection, Non-Tender, Normal Capillary Refill Neurological: Alert, Oriented, CN II-XII Intact, Normal Cognition, Normal Reflexes Skin Exam: Warm, Dry, Intact, Normal Color, No Rash Lymphatic: No Adenopathy Course - Vital Signs Text/Narrative:: I discussed with the patient all of his diagnostic test. I discussed with him the need to stop drinking alcohol in that it was killing him. He will be discharged. The patient agrees with the discharge plan. Last Recorded V/S: Last Vital Signs Temp 99.5 F 07/24/19 15:06 Pulse 100 07/24/19 17:09 Resp 20 07/24/19 17:09 BP 154/102 H 07/24/19 15:06 Pulse Ox 97 07/24/19 17:09 - Orders/Labs/Meds Orders: Active Orders 24 hr Category Date Time Status Pantoprazole [ProTONIX] Med 07/24/19 19:15 Ordered 40 mg PO STAT Medication Orders Pantoprazole Sodium (Protonix) 40 mg PO STAT KRISTIN Labs: Laboratory Tests 07/24/19 07/24/19 07/24/19 Range/Units 16:07 16:18 16:38 WBC 8.95 (4.0-11.0) K/uL RBC 5.05 (4.50-5.90) M/uL Hgb 15.9 (13.0-17.0) g/dL Hct 46.0 (38.0-50.0) % MCV 91.1 (80.0-98.0) fL MCH 31.5 (27.0-32.0) pg MCHC 34.6 (31.0-37.0) g/dL RDW Std Deviation 43.5 (28.0-62.0) fl RDW Coeff of Fredis 13 (11.0-15.0) % Plt Count 94 L (150-400) K/uL MPV 11.30 (7.40-12.00) fL Neut % (Auto) 68.2 (48.0-80.0) % Lymph % (Auto) 24.5 (16.0-40.0) % [place] % (Auto) 6.8 (0.0-15.0) % Eos % (Auto) 0.3 (0.0-7.0) % Baso % (Auto) 0.2 (0.0-1.5) % Neut # (Auto) 6.1 H (1.4-5.7) K/uL Lymph # (Auto) 2.2 (0.6-2.4) K/uL [place] # (Auto) 0.6 (0.0-0.8) K/uL Eos # (Auto) 0.0 (0.0-0.7) K/uL Baso # (Auto) 0.0 (0.0-0.1) K/uL Nucleated RBC % 0.0 /100WBC Nucleated RBCs # 0 K/uL Sodium 135 L (136-148) mmol/L Potassium 3.4 L (3.5-5.1) mmol/L Chloride 97 L (98-107) mmol/L Carbon Dioxide 26.2 (21.0-32.0) mmol/L BUN 8 (7.0-18.0) mg/dL Creatinine 0.8 (0.8-1.3) mg/dL Est Cr Clr Drug Dosing 136.07 mL/min Estimated GFR (MDRD) > 60.0 ml/min Glucose 92 (74-106) mg/dL Calcium 9.4 (8.5-10.1) mg/dL Total Bilirubin 1.7 H (0.2-1.0) mg/dL AST 97 H (15-37) IU/L ALT 92 H (14-63) IU/L Alkaline Phosphatase 91 (46-116) U/L Total Protein 7.2 (6.4-8.2) g/dL Albumin 4.2 (3.4-5.0) g/dL Globulin 3.0 (2.6-4.0) g/dL Albumin/Globulin Ratio 1.4 (0.9-1.6) Lipase 141 (73-393) U/L Urine Color YELLOW Urine Appearance CLEAR Urine pH 7.0 (5.0-8.0) Ur Specific [place] <= 1.005 (1.001-1.035) Urine Protein NEGATIVE (NEGATIVE) mg/dL Urine Glucose (UA) NEGATIVE (NEGATIVE) mg/dL Urine Ketones NEGATIVE (NEGATIVE) mg/dL Urine Occult Blood NEGATIVE (NEGATIVE) Urine Nitrite NEGATIVE (NEGATIVE) Urine Bilirubin NEGATIVE (NEGATIVE) Urine Urobilinogen 0.2 (<2.0) EU/dL Ur Leukocyte Esterase NEGATIVE (NEGATIVE) Meds: Medications Generic Name Dose Route Start Last Admin Trade Name Freq PRN Reason Stop Dose Admin Pantoprazole Sodium 40 mg 07/24/19 19:15 Protonix PO STAT KRISTIN Discontinued Medications Generic Name Dose Route Start Last Admin Trade Name Freq PRN Reason Stop Dose Admin Diphenhydramine HCl 25 mg 07/24/19 16:41 07/24/19 17:02 Benadryl IVPUSH 07/24/19 16:42 25 mg ONETIME ONE Administration Sodium Chloride 1,000 mls @ 1,000 mls/hr 07/24/19 16:34 07/24/19 17:02 Normal Saline IV 07/24/19 17:33 1,000 mls/hr .Bolus ONE Administration Iopamidol 100 ml 07/24/19 17:59 07/24/19 17:59 Isovue Multipack-370 (76%) IVPUSH 07/24/19 18:00 100 ml ONETIME STA Administration Morphine Sulfate 4 mg 07/24/19 16:42 07/24/19 17:02 Morphine IVPUSH 07/24/19 16:43 4 mg ONETIME ONE Administration Ondansetron HCl 4 mg 07/24/19 16:43 07/24/19 17:02 Zofran IVPUSH 07/24/19 16:44 4 mg ONETIME ONE Administration Departure - Departure Time of Disposition: 19:22 Disposition: Home, Self-Care 01 Condition: Good Clinical Impression: Abdominal pain of unknown etiology, Liver disease due to alcohol - Discharge Information *PRESCRIPTION DRUG MONITORING PROGRAM REVIEWED*: Yes *COPY OF PRESCRIPTION DRUG MONITORING REPORT IN PATIENT CLEM: Yes Instructions: Alcoholic Liver Disease, Abdominal Pain, Adult, [id number] Referrals: PCP,None [Primary Care Provider] - Forms: ED Department Discharge Additional Instructions: Take all medications as directed. Follow up with your PCP in the next two to four days. Stop drinking alcohol it is killing you. Rest for the next 24 hours. Return to the ED if your condition gets worse or should you have any questions or concerns. The following information is given to patients seen in the emergency department who are being discharged to home. This information is to outline your options for follow-up care. We provide all patients seen in our emergency department with a follow-up referral. The need for follow-up, as well as the timing and circumstances, are variable depending upon the specifics of your emergency department visit. If you don't have a primary care physician on staff, we will provide you with a referral. We always advise you to contact your personal physician following an emergency department visit to inform them of the circumstance of the visit and for follow-up with them and/or the need for any referrals to a consulting specialist. The emergency department will also refer you to a specialist when appropriate. This referral assures that you have the opportunity for follow-up care with a specialist. All of these measure are taken in an effort to provide you with optimal care, which includes your follow-up. Under all circumstances we always encourage you to contact your private physician who remains a resource for coordinating your care. When calling for follow-up care, please make the office aware that this follow-up is from your recent emergency room visit. If for any reason you are refused follow-up, please contact the [facility] Emergency Department at and asked to speak to the emergency department charge nurse Sepsis Event Note - Evaluation Sepsis Screening Result: No Definite Risk - Focused Exam Vital Signs: Vital Signs Temp Pulse Resp BP Pulse Ox 07/24/19 17:09 100 20 97 07/24/19 15:06 99.5 F 113 H 20 154/102 H 98 Date Exam was Performed: 07/24/19 Time Exam was Performed: 19:19 - My Orders Last 24 Hours: My Active Orders 07/24/19 19:15 Pantoprazole [ProTONIX] 40 mg PO STAT - Assessment/Plan Last 24 Hours: My Active Orders 07/24/19 19:15 Pantoprazole [ProTONIX] 40 mg PO STAT
[2019-07-24] MEDS ORDERED: Iopamidol 755 MG/ML 500 ML Multipack Bottle IVPUSH STA (17:59)
--- NOTE | 2019-07-24 18:17 | CT ---
CT abdomen and pelvis Technique: Multiple axial sections were obtained from above the dome of the diaphragm inferiorly through the pubic symphysis. Intravenous contrast was utilized. No oral contrast was given. Comparison: No previous CT abdomen or pelvis exam, previous right upper quadrant abdominal ultrasound of 03/25/19 is available. Findings: Very slight groundglass areas are noted within the right middle lobe most likely representing subsegmental atelectasis. Fatty infiltration is noted within the liver. Liver shows no focal abnormality. Spleen appears within normal limits. Adrenal glands show no nodule. Pancreas is within normal limits. Gallbladder contains no calcified gallstones. Kidneys show symmetric contrast enhancement. No hydronephrosis or mass is appreciated. Cyst is noted within the mid right kidney measuring 1.6 cm which is parapelvic in location. Aorta shows no aneurysm. No retroperitoneal adenopathy or mesenteric abnormalities are seen. No pelvic mass or adenopathy is seen. No free fluid or inflammatory change is appreciated within the abdomen or pelvis. Appendix is seen which is normal in size. Bone window settings were reviewed which show no acute osseous finding. Impression: 1. Fatty infiltration within the liver. Small cyst within the left kidney. 2. Nothing acute is appreciated on CT study of the abdomen and pelvis. Diagnostic code #2 This report was dictated in [place] Standard Time
[2019-07-24] MEDS ORDERED: Pantoprazole 40 MG Tab.CR PO SCH (19:15)
[2019-07-24 19:22] VITALS: BP 156/92; PULSE 85
== END 2019-07-24 19:30 | disposition home or self-care (01) ==
LOC: MW.ED 14:47
DX: K70.9 Alcoholic liver disease, unspecified (principal); F17.210 Nicotine dependence, cigarettes, uncomplicated; Z91.013 Allergy to seafood; Z79.899 Other long term (current) drug therapy
CPT/HCPCS: 36415; 74177; 80053; 81003; 83690; 85025; 96361; 96374; 96375; 99284; A9270; J1200; J2270; J2405; J7030; Q9967

== ENCOUNTER 2019-12-28 20:02 | Inpatient (IN) | payer BC, OTHER ==
[2019-12-28] MEDS ORDERED: Sodium Chloride 0.9% 10 ML Syringe FLUSH PRN (20:18)
[2019-12-28] MEDS ORDERED: Sodium Chloride 0.9% 2.5 ML Syringe FLUSH PRN (20:18)
[2019-12-28 20:34] LABS: BLOOD UREA NITROGEN,BUN 7 mg/dL (7.0-18.0); CARBON DIOXIDE,CO2 17.7 mmol/L (21.0-32.0); CHLORIDE,CL 93 mmol/L (98-107); GLUCOSE RANDOM 69 mg/dL (74-106); LIPASE 273 U/L (73-393); POTASSIUM,K 3.8 mmol/L (3.5-5.1); SODIUM,NA 132 mmol/L (136-148)
[2019-12-28] MEDS ORDERED: Sodium Chloride 0.9% 1,000 ML IV ONE (20:35)
[2019-12-28] MEDS ORDERED: Iopamidol 755 Mg/ML 100 ML Bottle IVPUSH ONE (21:19)
--- NOTE | 2019-12-28 21:37 | CT ---
CT abdomen and pelvis Technique: Multiple axial sections were obtained from above the dome of the diaphragm inferiorly through the pubic symphysis. Intravenous contrast was utilized. No oral contrast has been given. Comparison: Prior CT abdomen and pelvis exam of 07/24/19. Findings: Visualized lung bases shows nothing acute. Severe fatty infiltration is seen within the liver which has progressed in severity from previous exam. No focal abnormality is appreciated within the liver. Spleen appears normal in size. Adrenal glands show no nodule. No discrete varices are seen. Kidneys show symmetric contrast enhancement without hydronephrosis. Stable cyst is noted within the right kidney measuring 1.1 cm. Pancreas appears within normal limits. Aorta shows no aneurysm. No retroperitoneal adenopathy or mesenteric abnormalities are seen. No pelvic mass or adenopathy is seen. No free fluid or inflammatory change is seen. Appendix is not definitely visualized. Bone window settings were reviewed which shows no acute osseous finding. Impression: 1. Worsening fatty infiltration within the liver when compared to prior study. 2. Stable cyst within the right kidney. 3. Nothing acute is otherwise appreciated on CT study of the abdomen and pelvis. Diagnostic code #3 This report was dictated in MDT
--- NOTE | 2019-12-28 21:57 | EDM.PDOC ---
<Gena Epstein - Last Filed: 12/28/19 22:13> ED HPI GENERAL MEDICAL PROBLEM - General Chief Complaint: Drug or Alcohol Abuse Stated Complaint: FEELING ILL-EMS ARRIVAL Time Seen by Provider: 12/28/19 20:02 Source of Information: Reports: Patient History Limitations: Reports: No Limitations - History of Present Illness INITIAL COMMENTS - FREE TEXT/NARRATIVE: HISTORY AND PHYSICAL: History of present illness: Patient is a 39-year-old male who presents to the ED today for concern of "feeling unwell "for the past 3 days. Patient states he is a chronic alcohol user and has been drinking heavily over the past 2 weeks. Patient states approximately a week ago he started having bloody diarrhea. Patient states he is not concerned about the bloody diarrhea but is only here because he took a "unknown pill "from a friend that he is unsure what drug substance it was. Patient states that since he has taken this pill he has felt unlike himself. Patient states he has had vomiting but states that the vomit is not bloody. Patient states he has not eaten or drank much today. Patient states he is also having some vague abdominal pain which worsens before a bowel movement. Patient states he has been drinking today and his last drink was 2 hours prior to arrival to the ED. Patient states that after taking this drug he "sees things "if he closes his eyes so he has not slept much. Patient denies fever, chills, chest pain, shortness of breath, or cough. Denies headache, neck stiff ness, change in vision, syncope, or near syncope. Denies constipation, or dysuria. Has not noted any blood in urine or stool. Patient has been eating and drinking appropriately. Review of systems: As per history of present illness and below otherwise all systems reviewed and negative. Past medical history: As per history of present illness and as reviewed below otherwise noncontributory. Surgical history: As per history of present illness and as reviewed below otherwise noncontributory. Social history: See social history for further information Family history: As per history of present illness and as reviewed below otherwise noncontributory. Physical exam: General: Patient is alert, oriented, and in no acute distress. Patient laying comfortably on exam table and clinically does not appear intoxicated. HEENT: Atraumatic, normocephalic, pupils equal and reactive bilaterally, negative for conjunctival pallor or scleral icterus, mucous membranes moist, TMs normal bilaterally, throat clear, neck supple, nontender, trachea midline. No drooling or trismus noted. No meningeal signs. No hot potato voice noted. Lungs: Clear to auscultation, breath sounds equal bilaterally, chest nontender. Heart: S1S2, regular rate and rhythm without overt murmur Abdomen: Soft, nondistended, nontender. Negative for masses or hepatosplenomegaly. Negative for costovertebral tenderness. Pelvis: Stable nontender. Genitourinary: Deferred. Rectal: Hemoccult positive. Skin: Intact, warm, dry. No lesions or rashes noted. Extremities: Atraumatic, negative for cords or calf pain. Neurovascular unremarkable. Neuro: Awake, alert, oriented. Cranial nerves II through XII unremarkable. Cerebellum unremarkable. Motor and sensory unremarkable throughout. Exam nonfocal. Notes: Dr. Messina directly involved in patient care. Hemoccult positive. Clinically patient does not appear intoxicated and able to speak clear and cohesive sentences and walk throughout the room without difficulty. I do feel that his alcohol level of 300 is likely near his baseline from chronic alcohol use. Dr. Wilson consulted on patient and will admit to observation on telemetry. Voices understanding and is agreeable to plan of care. Denies any further questions or concerns at this time. Diagnostics: CBC, CMP, UA, Ammonia, INR, Abd/Pelvic CT w cont, Ova and Parasite, Cdiff, Stool culture, blood culture x 2, lactate Therapeutics: NS, Zofran, Protonix, Ativan Impression: Intractable vomiting Gastritis Alcohol intoxication Diarrhea Plan: Mid to inpatient to Dr. Wilson on telemetry Definitive disposition and diagnosis as appropriate pending reevaluation and review of above. - Related Data Allergies Allergy/AdvReac Type Severity Reaction Status Date / Time shellfish derived Allergy Mild Redness Verified 12/28/19 21:46 Home Meds: Home Meds Pantoprazole Sodium [Protonix] 40 mg PO DAILY 60 Days #60 tablet. 07/24/19 [Rx] Past Medical History HEENT History: Reports: None Cardiovascular History: Reports: None Respiratory History: Reports: None Gastrointestinal History: Reports: None Genitourinary History: Reports: None Musculoskeletal History: Reports: Amputation Neurological History: Reports: None Psychiatric History: Reports: None Endocrine/Metabolic History: Reports: None Hematologic History: Reports: None Immunologic History: Reports: None Oncologic (Cancer) History: Reports: None Dermatologic History: Reports: None - Past Surgical History Head Surgeries/Procedures: Reports: None HEENT Surgical History: Reports: None Cardiovascular Surgical History: Reports: None Respiratory Surgical History: Reports: None GI Surgical History: Reports: None Male Surgical History: Reports: None Endocrine Surgical History: Reports: None Neurological Surgical History: Reports: None Musculoskeletal Surgical History: Reports: Other (See Below) Other Musculoskeletal Surgeries/Procedures:: right 2nd toe removed Oncologic Surgical History: Reports: None Dermatological Surgical History: Reports: None Social & Family History - Family History Family Medical History: Noncontributory - Tobacco Use Smoking Status *Q: Current Every Day Smoker Years of Tobacco use: 20 Packs/Tins Daily: 2 Used Tobacco, but Quit: No Second Hand Smoke Exposure: Yes - Caffeine Use Caffeine Use: Reports: Coffee, Energy Drinks - Alcohol Use Days Per Week of Alcohol Use: 7 Number of Drinks Per Day: 1 Total Drinks Per Week: 7 Date of Last Drink: 12/28/19 Time of Last Drink: 19:00 - Recreational Drug Use Recreational Drug Use: Yes Drug Use in Last 12 Months: Yes Recreational Drug Type: Reports: Other (see below) Other Recreational Drug Type: a couple of red and green pills- 2-3 days Recreational Drug Use Frequency: Rarely ED ROS GENERAL - Review of Systems Review Of Systems: Comprehensive ROS is negative, except as noted in HPI. ED EXAM, GENERAL - Physical Exam Exam: See Below (See dictation) Departure - Departure Time of Disposition: 22:15 Disposition: Admitted As Inpatient 66 Clinical Impression: Intractable vomiting with nausea Diarrhea Qualifiers: Diarrhea type: unspecified type Qualified Code(s): R19.7 - Diarrhea, unspecified Gastritis Qualifiers: Gastritis type: unspecified gastritis Chronicity: acute Gastritis bleeding: presence of bleeding unspecified Qualified Code(s): K29.00 - Acute gastritis without bleeding Alcohol intoxication Qualifiers: Complication of substance-induced condition: with unspecified complication Qualified Code(s): F10.929 - Alcohol use, unspecified with intoxication, unspecified - Discharge Information Sepsis Event Note (ED) - Evaluation Sepsis Screening Result: No Definite Risk <Artis Messina - Last Filed: 12/28/19 23:48> EKG INTERPRETATION EKG Date: 12/28/19 Rhythm: NSR Rate (Beats/Min): 80 P-Wave: Present ST-T: Other (Nonspecific changes) EKG Interpretation Comments: There was some evidence of early re-pole in the precordium with also a PVC. Impression no acute injury Course - Vital Signs Last Recorded V/S: Last Vital Signs Temp 97.1 F 12/28/19 20:05 Pulse 86 12/28/19 22:45 Resp 18 12/28/19 22:45 BP 161/96 H 12/28/19 22:45 Pulse Ox 98 12/28/19 22:45 - Orders/Labs/Meds Orders: Active Orders 24 hr Category Date Time Status Admission Status [Patient Status] [ADT] Stat ADT 12/28/19 22:18 Active CULTURE BLOOD [BC] Stat Lab 12/28/19 22:20 Received CULTURE BLOOD [BC] Stat Lab 12/28/19 22:34 Received OVA & PARASITES BY IMMUNOASSAY [MREF] Stat Lab 12/28/19 20:34 Received STOOL CULTURE/SHIGA TOXIN [MREF] Stat Lab 12/28/19 20:34 Received Sodium Chloride 0.9% [Saline Flush] Med 12/28/19 20:18 Active 10 ml FLUSH ASDIRECTED PRN Sodium Chloride 0.9% [Saline Flush] Med 12/28/19 20:18 Active 2.5 ml FLUSH ASDIRECTED PRN Blood Culture x2 Reflex Set [OM.PC] Stat Oth 12/28/19 22:13 Ordered Saline Lock Insert [OM.PC] Stat Oth 12/28/19 20:18 Ordered Medication Orders Albuterol/Ipratropium (Duoneb 3.0-0.5 Mg/3 Ml) 3 ml NEB Q4HRRT PRN PRN Reason: Shortness Of Breath/wheezing Dextrose/Water (Dextrose 25% In Water) 10 ml IVPUSH ONETIME PRN PRN Reason: Hypoglycemia Diazepam (Valium.) 5 mg PO TID KRISTIN Lactated Ringer's (Ringers, Lactated) 1,000 mls @ 125 mls/hr IV ASDIRECTED KRISTIN Magnesium Sulfate 4 gm/ Premix 100 mls @ 50 mls/hr IV ONETIME ONE Stop: 12/29/19 01:25 Multivitamins/Minerals 10 ml/Thiamine HCl 100 mg/ Folic Acid 1 mg/ Sodium Chloride 1,011.2 mls @ 125 mls/hr IV ONETIME ONE Stop: 12/29/19 07:32 Lorazepam (Ativan) 0 mg IVPUSH Q4H PRN; Protocol PRN Reason: Withdrawal Symptoms Morphine Sulfate (Morphine) 1 mg IVPUSH Q4H PRN PRN Reason: Pain (severe 7-10) Stop: 12/29/19 22:38 Ondansetron HCl (Zofran) 4 mg IVPUSH Q4H PRN PRN Reason: Nausea/Vomiting Pantoprazole Sodium (Protonix Iv) 40 mg IV Q12HR KRISTIN Sodium Chloride (Saline Flush) 10 ml FLUSH ASDIRECTED PRN PRN Reason: Keep Vein Open Sodium Chloride (Saline Flush) 2.5 ml FLUSH ASDIRECTED PRN PRN Reason: Keep Vein Open Labs: Laboratory Tests 12/28/19 12/28/19 12/28/19 Range/Units 20:04 20:04 20:22 WBC 5.22 (4.0-11.0) K/uL RBC 4.85 (4.50-5.90) M/uL Hgb 14.7 (13.0-17.0) g/dL Hct 42.0 (38.0-50.0) % MCV 86.6 (80.0-98.0) fL MCH 30.3 (27.0-32.0) pg MCHC 35.0 (31.0-37.0) g/dL RDW Std Deviation 44.4 (28.0-62.0) fl RDW Coeff of Fredis 14 (11.0-15.0) % Plt Count 76 L (150-400) K/uL MPV 10.60 (7.40-12.00) fL Neut % (Auto) 67.6 (48.0-80.0) % Lymph % (Auto) 25.1 (16.0-40.0) % Dare % (Auto) 6.9 (0.0-15.0) % Eos % (Auto) 0.0 (0.0-7.0) % Baso % (Auto) 0.4 (0.0-1.5) % Neut # (Auto) 3.5 (1.4-5.7) K/uL Lymph # (Auto) 1.3 (0.6-2.4) K/uL Dare # (Auto) 0.4 (0.0-0.8) K/uL Eos # (Auto) 0.0 (0.0-0.7) K/uL Baso # (Auto) 0.0 (0.0-0.1) K/uL Nucleated RBC % 0.0 /100WBC Nucleated RBCs # 0 K/uL INR VBG pH 7.47 H (7.31-7.41) VBG pCO2 25 L (35-45) mmHG VBG pO2 77 H (30-40) mmHG VBG HCO3 18 L (22-30) mEq/L VBG Total CO2 16 L (41-51) mmol/L VBG Base Excess -3.5 L (-3.0-3.0) Lactate (0.20-2.00) mmol/L Sodium 132 L (136-148) mmol/L Potassium 3.8 (3.5-5.1) mmol/L Chloride 93 L (98-107) mmol/L Carbon Dioxide 17.7 L (21.0-32.0) mmol/L BUN 7 (7.0-18.0) mg/dL Creatinine 0.8 (0.8-1.3) mg/dL Est Cr Clr Drug Dosing TNP Estimated GFR (MDRD) > 60.0 ml/min Glucose 69 L (74-106) mg/dL Calcium 8.5 (8.5-10.1) mg/dL Total Bilirubin 1.7 H (0.2-1.0) mg/dL AST 300 H (15-37) IU/L ALT 241 H (14-63) IU/L Alkaline Phosphatase 92 (46-116) U/L Ammonia (19-54) ug/dL Total Protein 7.3 (6.4-8.2) g/dL Albumin 4.0 (3.4-5.0) g/dL Globulin 3.3 (2.6-4.0) g/dL Albumin/Globulin Ratio 1.2 (0.9-1.6) Lipase 273 (73-393) U/L Urine Color Urine Appearance Urine pH (5.0-8.0) Ur Specific [place] (1.001-1.035) Urine Protein (NEGATIVE) mg/dL Urine Glucose (UA) (NEGATIVE) mg/dL Urine Ketones (NEGATIVE) mg/dL Urine Occult Blood (NEGATIVE) Urine Nitrite (NEGATIVE) Urine Bilirubin (NEGATIVE) Urine Urobilinogen (<2.0) EU/dL Ur Leukocyte Esterase (NEGATIVE) Urine Opiates Screen (NEGATIVE) Ur Oxycodone Screen (NEGATIVE) Urine Methadone Screen (NEGATIVE) Ur Barbiturates Screen (NEGATIVE) Ur Phencyclidine Scrn (NEGATIVE) Ur Amphetamine Screen (NEGATIVE) U Methamphetamines Scrn (NEGATIVE) U Benzodiazepines Scrn (NEGATIVE) U Cocaine Metab Screen (NEGATIVE) U Marijuana (THC) Screen (NEGATIVE) Ethyl Alcohol mg/dL 12/28/19 12/28/19 12/28/19 Range/Units 20:22 20:22 20:34 WBC (4.0-11.0) K/uL RBC (4.50-5.90) M/uL Hgb (13.0-17.0) g/dL Hct (38.0-50.0) % MCV (80.0-98.0) fL MCH (27.0-32.0) pg MCHC (31.0-37.0) g/dL RDW Std Deviation (28.0-62.0) fl RDW Coeff of Fredis (11.0-15.0) % Plt Count (150-400) K/uL MPV (7.40-12.00) fL Neut % (Auto) (48.0-80.0) % Lymph % (Auto) (16.0-40.0) % Dare % (Auto) (0.0-15.0) % Eos % (Auto) (0.0-7.0) % Baso % (Auto) (0.0-1.5) % Neut # (Auto) (1.4-5.7) K/uL Lymph # (Auto) (0.6-2.4) K/uL Dare # (Auto) (0.0-0.8) K/uL Eos # (Auto) (0.0-0.7) K/uL Baso # (Auto) (0.0-0.1) K/uL Nucleated RBC % /100WBC Nucleated RBCs # K/uL INR 0.93 VBG pH (7.31-7.41) VBG pCO2 (35-45) mmHG VBG pO2 (30-40) mmHG VBG HCO3 (22-30) mEq/L VBG Total CO2 (41-51) mmol/L VBG Base Excess (-3.0-3.0) Lactate (0.20-2.00) mmol/L Sodium (136-148) mmol/L Potassium (3.5-5.1) mmol/L Chloride (98-107) mmol/L Carbon Dioxide (21.0-32.0) mmol/L BUN (7.0-18.0) mg/dL Creatinine (0.8-1.3) mg/dL Est Cr Clr Drug Dosing Estimated GFR (MDRD) ml/min Glucose (74-106) mg/dL Calcium (8.5-10.1) mg/dL Total Bilirubin (0.2-1.0) mg/dL AST (15-37) IU/L ALT (14-63) IU/L Alkaline Phosphatase (46-116) U/L Ammonia (19-54) ug/dL Total Protein (6.4-8.2) g/dL Albumin (3.4-5.0) g/dL Globulin (2.6-4.0) g/dL Albumin/Globulin Ratio (0.9-1.6) Lipase (73-393) U/L Urine Color YELLOW Urine Appearance CLEAR Urine pH 6.5 (5.0-8.0) Ur Specific [place] <= 1.005 (1.001-1.035) Urine Protein NEGATIVE (NEGATIVE) mg/dL Urine Glucose (UA) NEGATIVE (NEGATIVE) mg/dL Urine Ketones 15 H (NEGATIVE) mg/dL Urine Occult Blood NEGATIVE (NEGATIVE) Urine Nitrite NEGATIVE (NEGATIVE) Urine Bilirubin NEGATIVE (NEGATIVE) Urine Urobilinogen 0.2 (<2.0) EU/dL Ur Leukocyte Esterase NEGATIVE (NEGATIVE) Urine Opiates Screen (NEGATIVE) Ur Oxycodone Screen (NEGATIVE) Urine Methadone Screen (NEGATIVE) Ur Barbiturates Screen (NEGATIVE) Ur Phencyclidine Scrn (NEGATIVE) Ur Amphetamine Screen (NEGATIVE) U Methamphetamines Scrn (NEGATIVE) U Benzodiazepines Scrn (NEGATIVE) U Cocaine Metab Screen (NEGATIVE) U Marijuana (THC) Screen (NEGATIVE) Ethyl Alcohol 300 mg/dL 12/28/19 12/28/19 12/28/19 Range/Units 20:34 21:36 22:20 WBC (4.0-11.0) K/uL RBC (4.50-5.90) M/uL Hgb (13.0-17.0) g/dL Hct (38.0-50.0) % MCV (80.0-98.0) fL MCH (27.0-32.0) pg MCHC (31.0-37.0) g/dL RDW Std Deviation (28.0-62.0) fl RDW Coeff of Fredis (11.0-15.0) % Plt Count (150-400) K/uL MPV (7.40-12.00) fL Neut % (Auto) (48.0-80.0) % Lymph % (Auto) (16.0-40.0) % Dare % (Auto) (0.0-15.0) % Eos % (Auto) (0.0-7.0) % Baso % (Auto) (0.0-1.5) % Neut # (Auto) (1.4-5.7) K/uL Lymph # (Auto) (0.6-2.4) K/uL Dare # (Auto) (0.0-0.8) K/uL Eos # (Auto) (0.0-0.7) K/uL Baso # (Auto) (0.0-0.1) K/uL Nucleated RBC % /100WBC Nucleated RBCs # K/uL INR VBG pH (7.31-7.41) VBG pCO2 (35-45) mmHG VBG pO2 (30-40) mmHG VBG HCO3 (22-30) mEq/L VBG Total CO2 (41-51) mmol/L VBG Base Excess (-3.0-3.0) Lactate 4.4 H* (0.20-2.00) mmol/L Sodium (136-148) mmol/L Potassium (3.5-5.1) mmol/L Chloride (98-107) mmol/L Carbon Dioxide (21.0-32.0) mmol/L BUN (7.0-18.0) mg/dL Creatinine (0.8-1.3) mg/dL Est Cr Clr Drug Dosing Estimated GFR (MDRD) ml/min Glucose (74-106) mg/dL Calcium (8.5-10.1) mg/dL Total Bilirubin (0.2-1.0) mg/dL AST (15-37) IU/L ALT (14-63) IU/L Alkaline Phosphatase (46-116) U/L Ammonia < 17 L (19-54) ug/dL Total Protein (6.4-8.2) g/dL Albumin (3.4-5.0) g/dL Globulin (2.6-4.0) g/dL Albumin/Globulin Ratio (0.9-1.6) Lipase (73-393) U/L Urine Color Urine Appearance Urine pH (5.0-8.0) Ur Specific [place] (1.001-1.035) Urine Protein (NEGATIVE) mg/dL Urine Glucose (UA) (NEGATIVE) mg/dL Urine Ketones (NEGATIVE) mg/dL Urine Occult Blood (NEGATIVE) Urine Nitrite (NEGATIVE) Urine Bilirubin (NEGATIVE) Urine Urobilinogen (<2.0) EU/dL Ur Leukocyte Esterase (NEGATIVE) Urine Opiates Screen NEGATIVE (NEGATIVE) Ur Oxycodone Screen NEGATIVE (NEGATIVE) Urine Methadone Screen NEGATIVE (NEGATIVE) Ur Barbiturates Screen NEGATIVE (NEGATIVE) Ur Phencyclidine Scrn NEGATIVE (NEGATIVE) Ur Amphetamine Screen NEGATIVE (NEGATIVE) U Methamphetamines Scrn NEGATIVE (NEGATIVE) U Benzodiazepines Scrn NEGATIVE (NEGATIVE) U Cocaine Metab Screen NEGATIVE (NEGATIVE) U Marijuana (THC) Screen NEGATIVE (NEGATIVE) Ethyl Alcohol mg/dL Meds: Medications Generic Name Dose Route Start Last Admin Trade Name Freq PRN Reason Stop Dose Admin Albuterol/Ipratropium 3 ml 12/28/19 22:37 Duoneb 3.0-0.5 Mg/3 Ml NEB Q4HRRT PRN Shortness Of Breath/wheezing Dextrose/Water 10 ml 12/28/19 22:50 Dextrose 25% In Water IVPUSH ONETIME PRN Hypoglycemia Diazepam 5 mg 12/29/19 06:00 Valium. PO TID KRISTIN Lactated Ringer's 1,000 mls @ 125 mls/hr 12/28/19 22:45 Ringers, Lactated IV ASDIRECTED KRISTIN Magnesium Sulfate 4 gm/ Premix 100 mls @ 50 mls/hr 12/28/19 23:26 IV 12/29/19 01:25 ONETIME ONE Multivitamins/Minerals 10 ml/ 1,011.2 mls @ 125 mls/hr 12/28/19 23:27 Thiamine HCl 100 mg/ Folic IV 12/29/19 07:32 Acid 1 mg/ Sodium Chloride ONETIME ONE Lorazepam 0 mg 12/28/19 22:45 Ativan IVPUSH Q4H PRN Withdrawal Symptoms Protocol Morphine Sulfate 1 mg 12/28/19 22:37 Morphine IVPUSH 12/29/19 22:38 Q4H PRN Pain (severe 7-10) Ondansetron HCl 4 mg 12/28/19 22:37 Zofran IVPUSH Q4H PRN Nausea/Vomiting Pantoprazole Sodium 40 mg 12/29/19 09:00 Protonix Iv IV Q12HR KRISTIN Sodium Chloride 10 ml 12/28/19 20:18 Saline Flush FLUSH ASDIRECTED PRN Keep Vein Open Sodium Chloride 2.5 ml 12/28/19 20:18 Saline Flush FLUSH ASDIRECTED PRN Keep Vein Open Discontinued Medications Generic Name Dose Route Start Last Admin Trade Name Freq PRN Reason Stop Dose Admin Sodium Chloride 1,000 mls @ 999 mls/hr 12/28/19 20:35 12/28/19 20:47 Normal Saline IV 12/28/19 21:35 999 mls/hr BOLUS ONE Administration Pantoprazole Sodium 80 mg/ 20 mls @ 420 mls/hr 12/28/19 22:07 12/28/19 22:49 Sodium Chloride IVPUSH 12/28/19 22:09 420 mls/hr ONETIME ONE Administration Lactated Ringer's 1,000 mls @ 999 mls/hr 12/28/19 22:47 12/28/19 23:34 Ringers, Lactated IV 12/28/19 23:47 999 mls/hr .BOLUS ONE Administration Iopamidol 100 ml 12/28/19 21:19 12/28/19 21:20 [id number] (76%) IVPUSH 12/28/19 21:20 100 ml ONETIME ONE Administration Lorazepam 1 mg 12/28/19 22:12 12/28/19 22:53 Ativan IVPUSH 12/28/19 22:13 1 mg ONETIME ONE Administration Ondansetron HCl 4 mg 12/28/19 22:07 12/28/19 22:47 Zofran IVPUSH 12/28/19 22:08 4 mg ONETIME ONE Administration Sepsis Event Note (ED) - Focused Exam Vital Signs: Vital Signs Temp Pulse Resp BP Pulse Ox 12/28/19 21:00 87 18 134/72 96 12/28/19 20:05 97.1 F 88 20 160/100 H 94 L
[2019-12-28] MEDS ORDERED: Ondansetron 4 MG/2 ML SDV IVPUSH ONE (22:07)
[2019-12-28] MEDS ORDERED: Pantoprazole 80 MG in Sodium Chloride 0.9% 20 ML IVPUSH ONE (22:07)
[2019-12-28] MEDS ORDERED: LORazepam 2 MG/ML SDV IVPUSH ONE (22:12)
[2019-12-28] MEDS ORDERED: Ondansetron 4 MG/2 ML SDV IVPUSH PRN (22:37)
[2019-12-28] MEDS ORDERED: Albuterol/Ipratropium 3.0-0.5 MG/3 ML Neb Soln NEB PRN (22:37)
[2019-12-28] MEDS ORDERED: Morphine 10 MG/ML Syringe IVPUSH PRN (22:37)
[2019-12-28] MEDS ORDERED: Lactated Ringers 1,000 ML IV SCH (22:45)
[2019-12-28] MEDS ORDERED: Lactated Ringers 1,000 ML IV ONE (22:47)
[2019-12-28] MEDS ORDERED: 25% Dextrose in Water 10 ML Syringe IVPUSH PRN (22:50)
[2019-12-28] MEDS ORDERED: Magnesium Sulfate/Water 4 GM in Premix Bag 1 BAG IV ONE (23:26)
[2019-12-28] MEDS ORDERED: MVI, Adult with Vitamin K 10 ML, Thiamine 100 MG, Folic Acid 1 MG in Sodium Chloride 0.... IV ONE ×4 (23:27)
[2019-12-29] MEDS ORDERED: Vancomycin 125 MG Cap PO SCH (01:00)
[2019-12-29] MEDS ORDERED: Morphine 2 MG/ML SYRINGE IVPUSH PRN (03:07)
[2019-12-29] MEDS: LORazepam 2 MG/ML SDV IVPUSH PRN ×4 (03:14→20:05)
[2019-12-29 03:35] LABS: BLOOD UREA NITROGEN,BUN 6 mg/dL (7.0-18.0); CARBON DIOXIDE,CO2 20.5 mmol/L (21.0-32.0); CHLORIDE,CL 98 mmol/L (98-107); GLUCOSE RANDOM 140 mg/dL (74-106); POTASSIUM,K 3.5 mmol/L (3.5-5.1); SODIUM,NA 135 mmol/L (136-148)
[2019-12-29] MEDS: Thiamine 100 MG in Sodium Chloride 0.9% 100 ML IV SCH ×2 (04:45→09:31)
[2019-12-29] MEDS ORDERED: Vancomycin 25 MG/ML Compounding Kit PO SCH (06:00)
[2019-12-29] MEDS: Diazepam 5 MG Tab PO SCH ×3 (06:29→21:53)
[2019-12-29] MEDS: Vancomycin 25 MG/ML Compounding Kit PO SCH ×4 (08:00→23:51)
--- NOTE | 2019-12-29 08:55 | PCM.HP.2 ---
<Alber Araiza M - Last Filed: 12/29/19 13:56> H&P History of Present Illness - General Date of Service: 12/29/19 Admit Problem/Dx: Admission Diagnosis/Problem Admission Diagnosis/Problem Alcohol dependence Source of Information: Patient History Limitations: Reports: No Limitations - History of Present Illness Initial Comments - Free Text/Narative: 39-year-old male presented complaining of fatigue, "shakes," abdominal pain and bloody diarrhea for 1 week. He has a PMH of alcohol abuse. He reports drinking heavily over the past 1-2 weeks. He also states he was given "a few pills" from a friend but is unsure what they were. He reports the "pills" made him feel "sick." He has been vomiting but denies any blood. As a result of his abdominal pain and nausea, he has not been eating very much the past 1-2 days. He denies any fevers, chills, cough, SOB, chest pain, dysuria, blood in stool, numbness or tingling in extremities. In the ER, CT abd/pelvis showed fatty liver, UA was negative, UDS was negative, EtOH level 300 and COVID-19 test negative. Lactate level was 4.4. Patient given IV NS bolus, Zofran, Protonix and Ativan. Patient admitted for further evaluation and treatment. Bilateral Lower Abdomen Pain Score (Numeric/FACES): 5 - Related Data Allergies/Adverse Reactions: Allergies Allergy/AdvReac Type Severity Reaction Status Date / Time No Known Allergies Allergy Verified 12/29/19 08:20 Past Medical History HEENT History: Reports: None Cardiovascular History: Reports: None Respiratory History: Reports: None Gastrointestinal History: Reports: None Genitourinary History: Reports: None Musculoskeletal History: Reports: Amputation Neurological History: Reports: None Psychiatric History: Reports: None Endocrine/Metabolic History: Reports: None Hematologic History: Reports: None Immunologic History: Reports: None Oncologic (Cancer) History: Reports: None Dermatologic History: Reports: None - Past Surgical History Head Surgeries/Procedures: Reports: None HEENT Surgical History: Reports: None Cardiovascular Surgical History: Reports: None Respiratory Surgical History: Reports: None GI Surgical History: Reports: None Male Surgical History: Reports: None Endocrine Surgical History: Reports: None Neurological Surgical History: Reports: None Musculoskeletal Surgical History: Reports: Other (See Below) Other Musculoskeletal Surgeries/Procedures:: right 2nd toe removed Oncologic Surgical History: Reports: None Dermatological Surgical History: Reports: None Social & Family History - Family History Family Medical History: Noncontributory - Tobacco Use Smoking Status *Q: Current Every Day Smoker Years of Tobacco use: 20 Packs/Tins Daily: 2 Used Tobacco, but Quit: No Second Hand Smoke Exposure: Yes - Caffeine Use Caffeine Use: Reports: Coffee, Energy Drinks, Soda, Tea - Alcohol Use Days Per Week of Alcohol Use: 7 Number of Drinks Per Day: 2 Total Drinks Per Week: 14 Date of Last Drink: 12/28/19 Time of Last Drink: 19:00 - Recreational Drug Use Recreational Drug Use: Yes Drug Use in Last 12 Months: No Recreational Drug Type: Reports: Other (see below) Other Recreational Drug Type: a couple of red and green pills- 2-3 days Recreational Drug Use Frequency: Rarely H&P Review of Systems - Review of Systems: Review Of Systems: Comprehensive ROS is negative, except as noted in HPI. Exam - Exam Exam: See Below - Vital Signs Vital Signs: Last Vital Signs Temp 37.5 C 12/29/19 07:43 Pulse 82 12/29/19 07:43 Resp 18 12/29/19 07:43 BP 126/82 12/29/19 07:43 Pulse Ox 93 L 12/29/19 07:43 Weight: 75.5 kg - Exam General: Alert, Oriented, Other (drowsy) HEENT: Conjunctiva Clear, EOMI, Hearing Intact, Posterior Pharynx Clear, Pupils Equal Neck: Supple, Trachea Midline Lungs: Clear to Auscultation, Normal Respiratory Effort Cardiovascular: Regular Rate, Regular Rhythm GI/Abdominal Exam: Normal Bowel Sounds, Soft, Non-Tender, No Distention Extremities: Normal Inspection, No Pedal Edema Peripheral Pulses: 2+: Radial (L), Radial (R) Skin: Warm, Dry, Intact Neurological: Cranial Nerves Intact, Strength Equal Bilateral, Normal Speech, Normal Tone Neuro Extensive - Mental Status: Alert, Oriented x3, Normal Mood/Affect Psychiatric: Alert, Normal Affect, Normal Mood - Patient Data Lab Results Last 24 hrs: Laboratory Results - last 24 hr 12/28/19 12/28/19 12/28/19 Range/Units 20:04 20:04 20:22 WBC 5.22 (4.0-11.0) K/uL RBC 4.85 (4.50-5.90) M/uL Hgb 14.7 (13.0-17.0) g/dL Hct 42.0 (38.0-50.0) % MCV 86.6 (80.0-98.0) fL MCH 30.3 (27.0-32.0) pg MCHC 35.0 (31.0-37.0) g/dL RDW Std Deviation 44.4 (28.0-62.0) fl RDW Coeff of Fredis 14 (11.0-15.0) % Plt Count 76 L (150-400) K/uL MPV 10.60 (7.40-12.00) fL Neut % (Auto) 67.6 (48.0-80.0) % Lymph % (Auto) 25.1 (16.0-40.0) % [place] % (Auto) 6.9 (0.0-15.0) % Eos % (Auto) 0.0 (0.0-7.0) % Baso % (Auto) 0.4 (0.0-1.5) % Neut # (Auto) 3.5 (1.4-5.7) K/uL Lymph # (Auto) 1.3 (0.6-2.4) K/uL [place] # (Auto) 0.4 (0.0-0.8) K/uL Eos # (Auto) 0.0 (0.0-0.7) K/uL Baso # (Auto) 0.0 (0.0-0.1) K/uL Nucleated RBC % 0.0 /100WBC Nucleated RBCs # 0 K/uL INR VBG pH 7.47 H (7.31-7.41) VBG pCO2 25 L (35-45) mmHG VBG pO2 77 H (30-40) mmHG VBG HCO3 18 L (22-30) mEq/L VBG Total CO2 16 L (41-51) mmol/L VBG Base Excess -3.5 L (-3.0-3.0) Lactate (0.20-2.00) mmol/L Sodium 132 L (136-148) mmol/L Potassium 3.8 (3.5-5.1) mmol/L Chloride 93 L (98-107) mmol/L Carbon Dioxide 17.7 L (21.0-32.0) mmol/L BUN 7 (7.0-18.0) mg/dL Creatinine 0.8 (0.8-1.3) mg/dL Est Cr Clr Drug Dosing TNP Estimated GFR (MDRD) > 60.0 ml/min Glucose 69 L (74-106) mg/dL POC Glucose (60-110) mg/dL Calcium 8.5 (8.5-10.1) mg/dL Phosphorus (2.6-4.7) mg/dL Magnesium (1.8-2.4) mg/dL Total Bilirubin 1.7 H (0.2-1.0) mg/dL AST 300 H (15-37) IU/L ALT 241 H (14-63) IU/L Alkaline Phosphatase 92 (46-116) U/L Ammonia (19-54) ug/dL Total Protein 7.3 (6.4-8.2) g/dL Albumin 4.0 (3.4-5.0) g/dL Globulin 3.3 (2.6-4.0) g/dL Albumin/Globulin Ratio 1.2 (0.9-1.6) Lipase 273 (73-393) U/L Urine Color Urine Appearance Urine pH (5.0-8.0) Ur Specific [place] (1.001-1.035) Urine Protein (NEGATIVE) mg/dL Urine Glucose (UA) (NEGATIVE) mg/dL Urine Ketones (NEGATIVE) mg/dL Urine Occult Blood (NEGATIVE) Urine Nitrite (NEGATIVE) Urine Bilirubin (NEGATIVE) Urine Urobilinogen (<2.0) EU/dL Ur Leukocyte Esterase (NEGATIVE) Urine Opiates Screen (NEGATIVE) Ur Oxycodone Screen (NEGATIVE) Urine Methadone Screen (NEGATIVE) Ur Barbiturates Screen (NEGATIVE) Ur Phencyclidine Scrn (NEGATIVE) Ur Amphetamine Screen (NEGATIVE) U Methamphetamines Scrn (NEGATIVE) U Benzodiazepines Scrn (NEGATIVE) U Cocaine Metab Screen (NEGATIVE) U Marijuana (THC) Screen (NEGATIVE) Ethyl Alcohol mg/dL COVID-19 (DILAN) (NEGATIVE) 12/28/19 12/28/19 12/28/19 Range/Units 20:22 20:22 20:34 WBC (4.0-11.0) K/uL RBC (4.50-5.90) M/uL Hgb (13.0-17.0) g/dL Hct (38.0-50.0) % MCV (80.0-98.0) fL MCH (27.0-32.0) pg MCHC (31.0-37.0) g/dL RDW Std Deviation (28.0-62.0) fl RDW Coeff of Fredis (11.0-15.0) % Plt Count (150-400) K/uL MPV (7.40-12.00) fL Neut % (Auto) (48.0-80.0) % Lymph % (Auto) (16.0-40.0) % [place] % (Auto) (0.0-15.0) % Eos % (Auto) (0.0-7.0) % Baso % (Auto) (0.0-1.5) % Neut # (Auto) (1.4-5.7) K/uL Lymph # (Auto) (0.6-2.4) K/uL [place] # (Auto) (0.0-0.8) K/uL Eos # (Auto) (0.0-0.7) K/uL Baso # (Auto) (0.0-0.1) K/uL Nucleated RBC % /100WBC Nucleated RBCs # K/uL INR 0.93 VBG pH (7.31-7.41) VBG pCO2 (35-45) mmHG VBG pO2 (30-40) mmHG VBG HCO3 (22-30) mEq/L VBG Total CO2 (41-51) mmol/L VBG Base Excess (-3.0-3.0) Lactate (0.20-2.00) mmol/L Sodium (136-148) mmol/L Potassium (3.5-5.1) mmol/L Chloride (98-107) mmol/L Carbon Dioxide (21.0-32.0) mmol/L BUN (7.0-18.0) mg/dL Creatinine (0.8-1.3) mg/dL Est Cr Clr Drug Dosing Estimated GFR (MDRD) ml/min Glucose (74-106) mg/dL POC Glucose (60-110) mg/dL Calcium (8.5-10.1) mg/dL Phosphorus (2.6-4.7) mg/dL Magnesium (1.8-2.4) mg/dL Total Bilirubin (0.2-1.0) mg/dL AST (15-37) IU/L ALT (14-63) IU/L Alkaline Phosphatase (46-116) U/L Ammonia (19-54) ug/dL Total Protein (6.4-8.2) g/dL Albumin (3.4-5.0) g/dL Globulin (2.6-4.0) g/dL Albumin/Globulin Ratio (0.9-1.6) Lipase (73-393) U/L Urine Color YELLOW Urine Appearance CLEAR Urine pH 6.5 (5.0-8.0) Ur Specific [place] <= 1.005 (1.001-1.035) Urine Protein NEGATIVE (NEGATIVE) mg/dL Urine Glucose (UA) NEGATIVE (NEGATIVE) mg/dL Urine Ketones 15 H (NEGATIVE) mg/dL Urine Occult Blood NEGATIVE (NEGATIVE) Urine Nitrite NEGATIVE (NEGATIVE) Urine Bilirubin NEGATIVE (NEGATIVE) Urine Urobilinogen 0.2 (<2.0) EU/dL Ur Leukocyte Esterase NEGATIVE (NEGATIVE) Urine Opiates Screen (NEGATIVE) Ur Oxycodone Screen (NEGATIVE) Urine Methadone Screen (NEGATIVE) Ur Barbiturates Screen (NEGATIVE) Ur Phencyclidine Scrn (NEGATIVE) Ur Amphetamine Screen (NEGATIVE) U Methamphetamines Scrn (NEGATIVE) U Benzodiazepines Scrn (NEGATIVE) U Cocaine Metab Screen (NEGATIVE) U Marijuana (THC) Screen (NEGATIVE) Ethyl Alcohol 300 mg/dL COVID-19 (DILNA) (NEGATIVE) 12/28/19 12/28/19 12/28/19 Range/Units 20:34 21:36 22:20 WBC (4.0-11.0) K/uL RBC (4.50-5.90) M/uL Hgb (13.0-17.0) g/dL Hct (38.0-50.0) % MCV (80.0-98.0) fL MCH (27.0-32.0) pg MCHC (31.0-37.0) g/dL RDW Std Deviation (28.0-62.0) fl RDW Coeff of Fredis (11.0-15.0) % Plt Count (150-400) K/uL MPV (7.40-12.00) fL Neut % (Auto) (48.0-80.0) % Lymph % (Auto) (16.0-40.0) % [place] % (Auto) (0.0-15.0) % Eos % (Auto) (0.0-7.0) % Baso % (Auto) (0.0-1.5) % Neut # (Auto) (1.4-5.7) K/uL Lymph # (Auto) (0.6-2.4) K/uL [place] # (Auto) (0.0-0.8) K/uL Eos # (Auto) (0.0-0.7) K/uL Baso # (Auto) (0.0-0.1) K/uL Nucleated RBC % /100WBC Nucleated RBCs # K/uL INR VBG pH (7.31-7.41) VBG pCO2 (35-45) mmHG VBG pO2 (30-40) mmHG VBG HCO3 (22-30) mEq/L VBG Total CO2 (41-51) mmol/L VBG Base Excess (-3.0-3.0) Lactate 4.4 H* (0.20-2.00) mmol/L Sodium (136-148) mmol/L Potassium (3.5-5.1) mmol/L Chloride (98-107) mmol/L Carbon Dioxide (21.0-32.0) mmol/L BUN (7.0-18.0) mg/dL Creatinine (0.8-1.3) mg/dL Est Cr Clr Drug Dosing Estimated GFR (MDRD) ml/min Glucose (74-106) mg/dL POC Glucose (60-110) mg/dL Calcium (8.5-10.1) mg/dL Phosphorus (2.6-4.7) mg/dL Magnesium (1.8-2.4) mg/dL Total Bilirubin (0.2-1.0) mg/dL AST (15-37) IU/L ALT (14-63) IU/L Alkaline Phosphatase (46-116) U/L Ammonia < 17 L (19-54) ug/dL Total Protein (6.4-8.2) g/dL Albumin (3.4-5.0) g/dL Globulin (2.6-4.0) g/dL Albumin/Globulin Ratio (0.9-1.6) Lipase (73-393) U/L Urine Color Urine Appearance Urine pH (5.0-8.0) Ur Specific [place] (1.001-1.035) Urine Protein (NEGATIVE) mg/dL Urine Glucose (UA) (NEGATIVE) mg/dL Urine Ketones (NEGATIVE) mg/dL Urine Occult Blood (NEGATIVE) Urine Nitrite (NEGATIVE) Urine Bilirubin (NEGATIVE) Urine Urobilinogen (<2.0) EU/dL Ur Leukocyte Esterase (NEGATIVE) Urine Opiates Screen NEGATIVE (NEGATIVE) Ur Oxycodone Screen NEGATIVE (NEGATIVE) Urine Methadone Screen NEGATIVE (NEGATIVE) Ur Barbiturates Screen NEGATIVE (NEGATIVE) Ur Phencyclidine Scrn NEGATIVE (NEGATIVE) Ur Amphetamine Screen NEGATIVE (NEGATIVE) U Methamphetamines Scrn NEGATIVE (NEGATIVE) U Benzodiazepines Scrn NEGATIVE (NEGATIVE) U Cocaine Metab Screen NEGATIVE (NEGATIVE) U Marijuana (THC) Screen NEGATIVE (NEGATIVE) Ethyl Alcohol mg/dL COVID-19 (DILAN) (NEGATIVE) 12/28/19 12/28/19 12/29/19 Range/Units 22:34 22:58 00:51 WBC (4.0-11.0) K/uL RBC (4.50-5.90) M/uL Hgb (13.0-17.0) g/dL Hct (38.0-50.0) % MCV (80.0-98.0) fL MCH (27.0-32.0) pg MCHC (31.0-37.0) g/dL RDW Std Deviation (28.0-62.0) fl RDW Coeff of Fredis (11.0-15.0) % Plt Count (150-400) K/uL MPV (7.40-12.00) fL Neut % (Auto) (48.0-80.0) % Lymph % (Auto) (16.0-40.0) % [place] % (Auto) (0.0-15.0) % Eos % (Auto) (0.0-7.0) % Baso % (Auto) (0.0-1.5) % Neut # (Auto) (1.4-5.7) K/uL Lymph # (Auto) (0.6-2.4) K/uL [place] # (Auto) (0.0-0.8) K/uL Eos # (Auto) (0.0-0.7) K/uL Baso # (Auto) (0.0-0.1) K/uL Nucleated RBC % /100WBC Nucleated RBCs # K/uL INR VBG pH (7.31-7.41) VBG pCO2 (35-45) mmHG VBG pO2 (30-40) mmHG VBG HCO3 (22-30) mEq/L VBG Total CO2 (41-51) mmol/L VBG Base Excess (-3.0-3.0) Lactate (0.20-2.00) mmol/L Sodium (136-148) mmol/L Potassium (3.5-5.1) mmol/L Chloride (98-107) mmol/L Carbon Dioxide (21.0-32.0) mmol/L BUN (7.0-18.0) mg/dL Creatinine (0.8-1.3) mg/dL Est Cr Clr Drug Dosing Estimated GFR (MDRD) ml/min Glucose (74-106) mg/dL POC Glucose 49 L (60-110) mg/dL Calcium (8.5-10.1) mg/dL Phosphorus (2.6-4.7) mg/dL Magnesium 1.5 L (1.8-2.4) mg/dL Total Bilirubin (0.2-1.0) mg/dL AST (15-37) IU/L ALT (14-63) IU/L Alkaline Phosphatase (46-116) U/L Ammonia (19-54) ug/dL Total Protein (6.4-8.2) g/dL Albumin (3.4-5.0) g/dL Globulin (2.6-4.0) g/dL Albumin/Globulin Ratio (0.9-1.6) Lipase (73-393) U/L Urine Color Urine Appearance Urine pH (5.0-8.0) Ur Specific [place] (1.001-1.035) Urine Protein (NEGATIVE) mg/dL Urine Glucose (UA) (NEGATIVE) mg/dL Urine Ketones (NEGATIVE) mg/dL Urine Occult Blood (NEGATIVE) Urine Nitrite (NEGATIVE) Urine Bilirubin (NEGATIVE) Urine Urobilinogen (<2.0) EU/dL Ur Leukocyte Esterase (NEGATIVE) Urine Opiates Screen (NEGATIVE) Ur Oxycodone Screen (NEGATIVE) Urine Methadone Screen (NEGATIVE) Ur Barbiturates Screen (NEGATIVE) Ur Phencyclidine Scrn (NEGATIVE) Ur Amphetamine Screen (NEGATIVE) U Methamphetamines Scrn (NEGATIVE) U Benzodiazepines Scrn (NEGATIVE) U Cocaine Metab Screen (NEGATIVE) U Marijuana (THC) Screen (NEGATIVE) Ethyl Alcohol mg/dL COVID-19 (DILAN) NEGATIVE (NEGATIVE) 12/29/19 12/29/19 12/29/19 Range/Units 01:41 03:05 03:05 WBC 3.83 L (4.0-11.0) K/uL RBC 4.42 L (4.50-5.90) M/uL Hgb 13.1 (13.0-17.0) g/dL Hct 38.4 (38.0-50.0) % MCV 86.9 (80.0-98.0) fL MCH 29.6 (27.0-32.0) pg MCHC 34.1 (31.0-37.0) g/dL RDW Std Deviation 45.4 (28.0-62.0) fl RDW Coeff of Fredis 14 (11.0-15.0) % Plt Count 67 L (150-400) K/uL MPV 11.00 (7.40-12.00) fL Neut % (Auto) 63.5 (48.0-80.0) % Lymph % (Auto) 28.7 (16.0-40.0) % [place] % (Auto) 7.0 (0.0-15.0) % Eos % (Auto) 0.5 (0.0-7.0) % Baso % (Auto) 0.3 (0.0-1.5) % Neut # (Auto) 2.4 (1.4-5.7) K/uL Lymph # (Auto) 1.1 (0.6-2.4) K/uL [place] # (Auto) 0.3 (0.0-0.8) K/uL Eos # (Auto) 0.0 (0.0-0.7) K/uL Baso # (Auto) 0.0 (0.0-0.1) K/uL Nucleated RBC % 0.0 /100WBC Nucleated RBCs # 0 K/uL INR VBG pH (7.31-7.41) VBG pCO2 (35-45) mmHG VBG pO2 (30-40) mmHG VBG HCO3 (22-30) mEq/L VBG Total CO2 (41-51) mmol/L VBG Base Excess (-3.0-3.0) Lactate (0.20-2.00) mmol/L Sodium 135 L (136-148) mmol/L Potassium 3.5 (3.5-5.1) mmol/L Chloride 98 (98-107) mmol/L Carbon Dioxide 20.5 L (21.0-32.0) mmol/L BUN 6 L (7.0-18.0) mg/dL Creatinine 0.8 (0.8-1.3) mg/dL Est Cr Clr Drug Dosing 132.04 Estimated GFR (MDRD) > 60.0 ml/min Glucose 140 H (74-106) mg/dL POC Glucose 51 L (60-110) mg/dL Calcium 7.5 L (8.5-10.1) mg/dL Phosphorus 3.2 (2.6-4.7) mg/dL Magnesium 2.2 (1.8-2.4) mg/dL Total Bilirubin 1.3 H (0.2-1.0) mg/dL AST 214 H (15-37) IU/L ALT 193 H (14-63) IU/L Alkaline Phosphatase 77 (46-116) U/L Ammonia (19-54) ug/dL Total Protein 6.0 L (6.4-8.2) g/dL Albumin 3.3 L (3.4-5.0) g/dL Globulin 2.7 (2.6-4.0) g/dL Albumin/Globulin Ratio 1.2 (0.9-1.6) Lipase (73-393) U/L Urine Color Urine Appearance Urine pH (5.0-8.0) Ur Specific [place] (1.001-1.035) Urine Protein (NEGATIVE) mg/dL Urine Glucose (UA) (NEGATIVE) mg/dL Urine Ketones (NEGATIVE) mg/dL Urine Occult Blood (NEGATIVE) Urine Nitrite (NEGATIVE) Urine Bilirubin (NEGATIVE) Urine Urobilinogen (<2.0) EU/dL Ur Leukocyte Esterase (NEGATIVE) Urine Opiates Screen (NEGATIVE) Ur Oxycodone Screen (NEGATIVE) Urine Methadone Screen (NEGATIVE) Ur Barbiturates Screen (NEGATIVE) Ur Phencyclidine Scrn (NEGATIVE) Ur Amphetamine Screen (NEGATIVE) U Methamphetamines Scrn (NEGATIVE) U Benzodiazepines Scrn (NEGATIVE) U Cocaine Metab Screen (NEGATIVE) U Marijuana (THC) Screen (NEGATIVE) Ethyl Alcohol mg/dL COVID-19 (DILAN) (NEGATIVE) 12/29/19 12/29/19 12/29/19 Range/Units 03:05 03:35 06:32 WBC (4.0-11.0) K/uL RBC (4.50-5.90) M/uL Hgb (13.0-17.0) g/dL Hct (38.0-50.0) % MCV (80.0-98.0) fL MCH (27.0-32.0) pg MCHC (31.0-37.0) g/dL RDW Std Deviation (28.0-62.0) fl RDW Coeff of Fredis (11.0-15.0) % Plt Count (150-400) K/uL MPV (7.40-12.00) fL Neut % (Auto) (48.0-80.0) % Lymph % (Auto) (16.0-40.0) % [place] % (Auto) (0.0-15.0) % Eos % (Auto) (0.0-7.0) % Baso % (Auto) (0.0-1.5) % Neut # (Auto) (1.4-5.7) K/uL Lymph # (Auto) (0.6-2.4) K/uL [place] # (Auto) (0.0-0.8) K/uL Eos # (Auto) (0.0-0.7) K/uL Baso # (Auto) (0.0-0.1) K/uL Nucleated RBC % /100WBC Nucleated RBCs # K/uL INR VBG pH (7.31-7.41) VBG pCO2 (35-45) mmHG VBG pO2 (30-40) mmHG VBG HCO3 (22-30) mEq/L VBG Total CO2 (41-51) mmol/L VBG Base Excess (-3.0-3.0) Lactate 3.4 H* (0.20-2.00) mmol/L Sodium (136-148) mmol/L Potassium (3.5-5.1) mmol/L Chloride (98-107) mmol/L Carbon Dioxide (21.0-32.0) mmol/L BUN (7.0-18.0) mg/dL Creatinine (0.8-1.3) mg/dL Est Cr Clr Drug Dosing Estimated GFR (MDRD) ml/min Glucose (74-106) mg/dL POC Glucose 129 H 62 (60-110) mg/dL Calcium (8.5-10.1) mg/dL Phosphorus (2.6-4.7) mg/dL Magnesium (1.8-2.4) mg/dL Total Bilirubin (0.2-1.0) mg/dL AST (15-37) IU/L ALT (14-63) IU/L Alkaline Phosphatase (46-116) U/L Ammonia (19-54) ug/dL Total Protein (6.4-8.2) g/dL Albumin (3.4-5.0) g/dL Globulin (2.6-4.0) g/dL Albumin/Globulin Ratio (0.9-1.6) Lipase (73-393) U/L Urine Color Urine Appearance Urine pH (5.0-8.0) Ur Specific [place] (1.001-1.035) Urine Protein (NEGATIVE) mg/dL Urine Glucose (UA) (NEGATIVE) mg/dL Urine Ketones (NEGATIVE) mg/dL Urine Occult Blood (NEGATIVE) Urine Nitrite (NEGATIVE) Urine Bilirubin (NEGATIVE) Urine Urobilinogen (<2.0) EU/dL Ur Leukocyte Esterase (NEGATIVE) Urine Opiates Screen (NEGATIVE) Ur Oxycodone Screen (NEGATIVE) Urine Methadone Screen (NEGATIVE) Ur Barbiturates Screen (NEGATIVE) Ur Phencyclidine Scrn (NEGATIVE) Ur Amphetamine Screen (NEGATIVE) U Methamphetamines Scrn (NEGATIVE) U Benzodiazepines Scrn (NEGATIVE) U Cocaine Metab Screen (NEGATIVE) U Marijuana (THC) Screen (NEGATIVE) Ethyl Alcohol mg/dL COVID-19 (DILAN) (NEGATIVE) 12/29/19 Range/Units 07:40 WBC (4.0-11.0) K/uL RBC (4.50-5.90) M/uL Hgb (13.0-17.0) g/dL Hct (38.0-50.0) % MCV (80.0-98.0) fL MCH (27.0-32.0) pg MCHC (31.0-37.0) g/dL RDW Std Deviation (28.0-62.0) fl RDW Coeff of Fredis (11.0-15.0) % Plt Count (150-400) K/uL MPV (7.40-12.00) fL Neut % (Auto) (48.0-80.0) % Lymph % (Auto) (16.0-40.0) % [place] % (Auto) (0.0-15.0) % Eos % (Auto) (0.0-7.0) % Baso % (Auto) (0.0-1.5) % Neut # (Auto) (1.4-5.7) K/uL Lymph # (Auto) (0.6-2.4) K/uL [place] # (Auto) (0.0-0.8) K/uL Eos # (Auto) (0.0-0.7) K/uL Baso # (Auto) (0.0-0.1) K/uL Nucleated RBC % /100WBC Nucleated RBCs # K/uL INR VBG pH (7.31-7.41) VBG pCO2 (35-45) mmHG VBG pO2 (30-40) mmHG VBG HCO3 (22-30) mEq/L VBG Total CO2 (41-51) mmol/L VBG Base Excess (-3.0-3.0) Lactate 1.6 (0.20-2.00) mmol/L Sodium (136-148) mmol/L Potassium (3.5-5.1) mmol/L Chloride (98-107) mmol/L Carbon Dioxide (21.0-32.0) mmol/L BUN (7.0-18.0) mg/dL Creatinine (0.8-1.3) mg/dL Est Cr Clr Drug Dosing Estimated GFR (MDRD) ml/min Glucose (74-106) mg/dL POC Glucose (60-110) mg/dL Calcium (8.5-10.1) mg/dL Phosphorus (2.6-4.7) mg/dL Magnesium (1.8-2.4) mg/dL Total Bilirubin (0.2-1.0) mg/dL AST (15-37) IU/L ALT (14-63) IU/L Alkaline Phosphatase (46-116) U/L Ammonia (19-54) ug/dL Total Protein (6.4-8.2) g/dL Albumin (3.4-5.0) g/dL Globulin (2.6-4.0) g/dL Albumin/Globulin Ratio (0.9-1.6) Lipase (73-393) U/L Urine Color Urine Appearance Urine pH (5.0-8.0) Ur Specific [place] (1.001-1.035) Urine Protein (NEGATIVE) mg/dL Urine Glucose (UA) (NEGATIVE) mg/dL Urine Ketones (NEGATIVE) mg/dL Urine Occult Blood (NEGATIVE) Urine Nitrite (NEGATIVE) Urine Bilirubin (NEGATIVE) Urine Urobilinogen (<2.0) EU/dL Ur Leukocyte Esterase (NEGATIVE) Urine Opiates Screen (NEGATIVE) Ur Oxycodone Screen (NEGATIVE) Urine Methadone Screen (NEGATIVE) Ur Barbiturates Screen (NEGATIVE) Ur Phencyclidine Scrn (NEGATIVE) Ur Amphetamine Screen (NEGATIVE) U Methamphetamines Scrn (NEGATIVE) U Benzodiazepines Scrn (NEGATIVE) U Cocaine Metab Screen (NEGATIVE) U Marijuana (THC) Screen (NEGATIVE) Ethyl Alcohol mg/dL COVID-19 (DILAN) (NEGATIVE) Result Diagrams: 12/29/19 03:05 12/29/19 03:05 Hans Results Last 24 hrs: Microbiology 12/28/19 20:34 C. difficile Antigen & Toxins A,B - Final Stool / Feces Sepsis Event Note - Evaluation Sepsis Screening Result: No Definite Risk - Focused Exam Vital Signs: Vital Signs Temp Pulse Resp BP Pulse Ox 12/29/19 07:43 37.5 C 82 18 126/82 93 L 12/29/19 03:17 36.9 C 81 18 134/84 94 L 12/29/19 00:50 36.4 C 97 18 124/101 H 96 12/28/19 22:45 86 18 161/96 H 98 12/28/19 22:37 96 12/28/19 21:00 87 18 134/72 96 Date Exam was Performed: 12/29/19 Time Exam was Performed: 13:56 Problem List Initiated/Reviewed/Updated: Yes Orders Last 24hrs: Active Orders 24 hr Category Date Time Status Admission Status [Patient Status] [ADT] Stat ADT 12/28/19 22:18 Active Ambulate [RC] ASDIRECTED Care 12/28/19 22:37 Active Antiembolic Devices [RC] PER UNIT ROUTINE Care 12/28/19 22:38 Active Blood Glucose Check, Bedside [RC] Q6H Care 12/28/19 22:37 Active EKG 12 Lead [EKG Documentation Completion] [RC] STAT Care 12/28/19 23:17 Active Oxygen Therapy [RC] PRN Care 12/28/19 22:37 Active Pulse Oximetry [RC] PRN Care 12/28/19 22:37 Active RT Aerosol Therapy [RC] ASDIRECTED Care 12/28/19 22:40 Active Telemetry Monitoring [Cardiac Monitoring] [RC] Q8H Care 12/28/19 22:58 Active VTE/DVT Education [RC] PER UNIT ROUTINE Care 12/28/19 22:37 Active Vital Signs [RC] Q4H Care 12/28/19 22:37 Active Clear Liquid Diet [DIET] Diet 12/29/19 Breakfast Active CLOSTRIDIUM DIFFICILE TOX RFLX [MREF] Routine Lab 12/28/19 20:34 Received CULTURE BLOOD [BC] Stat Lab 12/28/19 22:20 Received CULTURE BLOOD [BC] Stat Lab 12/28/19 22:34 Received OVA & PARASITES BY IMMUNOASSAY [MREF] Stat Lab 12/28/19 20:34 Received STOOL CULTURE/SHIGA TOXIN [MREF] Stat Lab 12/28/19 20:34 Received Albuterol/Ipratropium [DuoNeb 3.0-0.5 MG/3 ML] Med 12/28/19 22:37 Active 3 ml NEB Q4HRRT PRN Dextrose 25% in Water Med 12/28/19 22:50 Active 10 ml IVPUSH ONETIME PRN Dextrose 5%-Lactated Ringers 1,000 ml Med 12/29/19 08:30 Active IV ASDIRECTED LORazepam [Ativan] Med 12/28/19 22:45 Active See Protocol IVPUSH Q4H PRN Morphine Med 12/29/19 03:07 Active 1 mg IVPUSH Q4H PRN Ondansetron [Zofran] Med 12/28/19 22:37 Active 4 mg IVPUSH Q4H PRN Pantoprazole [ProTONIX IV] Med 12/29/19 09:00 Active 40 mg IV Q12HR Sodium Chloride 0.9% [Saline Flush] Med 12/28/19 20:18 Active 10 ml FLUSH ASDIRECTED PRN Sodium Chloride 0.9% [Saline Flush] Med 12/28/19 20:18 Active 2.5 ml FLUSH ASDIRECTED PRN Thiamine [Vitamin B-1] 100 mg Med 12/29/19 02:00 Active Sodium Chloride 0.9% [Normal Saline] 100 ml IV DAILY Vancomycin [First-Vancomycin 25 Compounding Kit] Med 12/29/19 07:30 Active 125 mg PO QID diazePAM [Valium] Med 12/29/19 06:00 Active 5 mg PO TID Blood Culture x2 Reflex Set [OM.PC] Stat Ot 12/28/19 22:13 Ordered Saline Lock Insert [OM.PC] Stat Ot 12/28/19 20:18 Ordered Sequential Compression Device [OM.PC] Per Unit Routine Ot 12/28/19 22:38 Ordered Medication Orders Albuterol/Ipratropium (Duoneb 3.0-0.5 Mg/3 Ml) 3 ml NEB Q4HRRT PRN PRN Reason: Shortness Of Breath/wheezing Dextrose/Water (Dextrose 25% In Water) 10 ml IVPUSH ONETIME PRN PRN Reason: Hypoglycemia Last Admin: 12/29/19 01:11 Dose: 10 ml Documented by: PROFLUC Diazepam (Valium.) 5 mg PO TID [facility] Last Admin: 12/29/19 06:29 Dose: 5 mg Documented by: PROFLUC Thiamine HCl 100 mg/ Sodium (Chloride) 101 mls @ 202 mls/hr IV DAILY [facility] Last Admin: 12/29/19 04:45 Dose: 202 mls/hr Documented by: PROFLUC Dextrose/Lactated Ringer's (Dextrose 5%-Lactated Ringers) 1,000 mls @ 125 mls/hr IV ASDIRECTED [facility] Lorazepam (Ativan) 0 mg IVPUSH Q4H PRN; Protocol PRN Reason: Withdrawal Symptoms Last Admin: 12/29/19 08:01 Dose: 1 mg Documented by: Admin: 12/29/19 03:14 Dose: 1 mg Documented by: PROFLUC Morphine Sulfate (Morphine) 1 mg IVPUSH Q4H PRN PRN Reason: Pain (severe 7-10) Stop: 12/29/19 22:38 Ondansetron HCl (Zofran) 4 mg IVPUSH Q4H PRN PRN Reason: Nausea/Vomiting Pantoprazole Sodium (Protonix Iv) 40 mg IV Q12HR [facility] Sodium Chloride (Saline Flush) 10 ml FLUSH ASDIRECTED PRN PRN Reason: Keep Vein Open Sodium Chloride (Saline Flush) 2.5 ml FLUSH ASDIRECTED PRN PRN Reason: Keep Vein Open Vancomycin HCl (First-Vancomycin 25 Compounding Kit) 125 mg PO QID [facility] Last Admin: 12/29/19 08:00 Dose: 5 ml Documented by: ADAN Assessment/Plan Comment:: Assessment and Plan: 1. Alcohol intoxication: - Admit to med/surg. Given banana bag and will continue thiamine and folic acid. Patient on valium 5mg TID and IV ativan prn CIWA protocol. Counselled on alcohol cessation. 2. Dehydration: - Patient reports limited PO intake over the past 1-2 days. Lactate level on admission was 4.4 and has now normalized. Patient noted to have hypoglycemia and is on IV D5-LR @ 125 cc/hr with accu-checks q6h. 3. Gastritis: - Stool hemoccult positive. Patient on IV PPI BID. 4. C. diff colitis: - Stool tested positive for c. diff. Patient on PO vancomycin. 5. DVT prophylaxis: SCD's. <Jose Wilson - Last Filed: 12/30/19 11:31> H&P History of Present Illness - General Admit Problem/Dx: Admission Diagnosis/Problem Admission Diagnosis/Problem Alcohol dependence Exam - Vital Signs Vital Signs: Last Vital Signs Temp 36.8 C 12/30/19 08:00 Pulse 87 12/30/19 08:00 Resp 18 12/30/19 08:00 BP 118/75 12/30/19 08:00 Pulse Ox 98 12/30/19 08:00 - Patient Data Lab Results Last 24 hrs: Laboratory Results - last 24 hr 12/29/19 12/29/19 12/30/19 Range/Units 12:28 17:48 01:02 WBC (4.0-11.0) K/uL RBC (4.50-5.90) M/uL Hgb (13.0-17.0) g/dL Hct (38.0-50.0) % MCV (80.0-98.0) fL MCH (27.0-32.0) pg MCHC (31.0-37.0) g/dL RDW Std Deviation (28.0-62.0) fl RDW Coeff of Fredis (11.0-15.0) % Plt Count (150-400) K/uL MPV (7.40-12.00) fL Neut % (Auto) (48.0-80.0) % Lymph % (Auto) (16.0-40.0) % Cascade % (Auto) (0.0-15.0) % Eos % (Auto) (0.0-7.0) % Baso % (Auto) (0.0-1.5) % Neut # (Auto) (1.4-5.7) K/uL Lymph # (Auto) (0.6-2.4) K/uL Cascade # (Auto) (0.0-0.8) K/uL Eos # (Auto) (0.0-0.7) K/uL Baso # (Auto) (0.0-0.1) K/uL Nucleated RBC % /100WBC Nucleated RBCs # K/uL Sodium (136-148) mmol/L Potassium (3.5-5.1) mmol/L Chloride (98-107) mmol/L Carbon Dioxide (21.0-32.0) mmol/L BUN (7.0-18.0) mg/dL Creatinine (0.8-1.3) mg/dL Est Cr Clr Drug Dosing mL/min Estimated GFR (MDRD) ml/min Glucose (74-106) mg/dL POC Glucose 112 H 110 74 (60-110) mg/dL Calcium (8.5-10.1) mg/dL Phosphorus (2.6-4.7) mg/dL Magnesium (1.8-2.4) mg/dL Total Bilirubin (0.2-1.0) mg/dL AST (15-37) IU/L ALT (14-63) IU/L Alkaline Phosphatase (46-116) U/L Total Protein (6.4-8.2) g/dL Albumin (3.4-5.0) g/dL Globulin (2.6-4.0) g/dL Albumin/Globulin Ratio (0.9-1.6) 12/30/19 12/30/19 12/30/19 Range/Units 05:12 05:12 05:12 WBC 3.59 L (4.0-11.0) K/uL RBC 4.41 L (4.50-5.90) M/uL Hgb 13.2 (13.0-17.0) g/dL Hct 39.4 (38.0-50.0) % MCV 89.3 (80.0-98.0) fL MCH 29.9 (27.0-32.0) pg MCHC 33.5 (31.0-37.0) g/dL RDW Std Deviation 47.9 (28.0-62.0) fl RDW Coeff of Fredis 15 (11.0-15.0) % Plt Count 61 L (150-400) K/uL MPV 11.20 (7.40-12.00) fL Neut % (Auto) 60.5 (48.0-80.0) % Lymph % (Auto) 30.6 (16.0-40.0) % Cascade % (Auto) 7.2 (0.0-15.0) % Eos % (Auto) 1.4 (0.0-7.0) % Baso % (Auto) 0.3 (0.0-1.5) % Neut # (Auto) 2.2 (1.4-5.7) K/uL Lymph # (Auto) 1.1 (0.6-2.4) K/uL Cascade # (Auto) 0.3 (0.0-0.8) K/uL Eos # (Auto) 0.1 (0.0-0.7) K/uL Baso # (Auto) 0.0 (0.0-0.1) K/uL Nucleated RBC % 0.0 /100WBC Nucleated RBCs # 0 K/uL Sodium 135 L (136-148) mmol/L Potassium 3.1 L (3.5-5.1) mmol/L Chloride 101 (98-107) mmol/L Carbon Dioxide 23.2 (21.0-32.0) mmol/L BUN 4 L (7.0-18.0) mg/dL Creatinine 0.9 (0.8-1.3) mg/dL Est Cr Clr Drug Dosing 117.37 mL/min Estimated GFR (MDRD) > 60.0 ml/min Glucose 196 H (74-106) mg/dL POC Glucose (60-110) mg/dL Calcium 7.7 L (8.5-10.1) mg/dL Phosphorus 4.6 (2.6-4.7) mg/dL Magnesium 1.3 L (1.8-2.4) mg/dL Total Bilirubin 1.3 H (0.2-1.0) mg/dL AST 259 H (15-37) IU/L ALT 191 H (14-63) IU/L Alkaline Phosphatase 80 (46-116) U/L Total Protein 6.0 L (6.4-8.2) g/dL Albumin 3.2 L (3.4-5.0) g/dL Globulin 2.8 (2.6-4.0) g/dL Albumin/Globulin Ratio 1.1 (0.9-1.6) 12/30/19 Range/Units 06:35 WBC (4.0-11.0) K/uL RBC (4.50-5.90) M/uL Hgb (13.0-17.0) g/dL Hct (38.0-50.0) % MCV (80.0-98.0) fL MCH (27.0-32.0) pg MCHC (31.0-37.0) g/dL RDW Std Deviation (28.0-62.0) fl RDW Coeff of Fredis (11.0-15.0) % Plt Count (150-400) K/uL MPV (7.40-12.00) fL Neut % (Auto) (48.0-80.0) % Lymph % (Auto) (16.0-40.0) % Cascade % (Auto) (0.0-15.0) % Eos % (Auto) (0.0-7.0) % Baso % (Auto) (0.0-1.5) % Neut # (Auto) (1.4-5.7) K/uL Lymph # (Auto) (0.6-2.4) K/uL Cascade # (Auto) (0.0-0.8) K/uL Eos # (Auto) (0.0-0.7) K/uL Baso # (Auto) (0.0-0.1) K/uL Nucleated RBC % /100WBC Nucleated RBCs # K/uL Sodium (136-148) mmol/L Potassium (3.5-5.1) mmol/L Chloride (98-107) mmol/L Carbon Dioxide (21.0-32.0) mmol/L BUN (7.0-18.0) mg/dL Creatinine (0.8-1.3) mg/dL Est Cr Clr Drug Dosing mL/min Estimated GFR (MDRD) ml/min Glucose (74-106) mg/dL POC Glucose 198 H (60-110) mg/dL Calcium (8.5-10.1) mg/dL Phosphorus (2.6-4.7) mg/dL Magnesium (1.8-2.4) mg/dL Total Bilirubin (0.2-1.0) mg/dL AST (15-37) IU/L ALT (14-63) IU/L Alkaline Phosphatase (46-116) U/L Total Protein (6.4-8.2) g/dL Albumin (3.4-5.0) g/dL Globulin (2.6-4.0) g/dL Albumin/Globulin Ratio (0.9-1.6) Result Diagrams: 12/30/19 05:12 12/30/19 05:12 Hans Results Last 24 hrs: Microbiology 12/28/19 20:34 Cryptosporidium/Giardia - Final Stool / Feces 12/28/19 20:34 Shiga Toxin I & II - Final Stool / Feces 12/28/19 22:34 Aerobic Blood Culture - Preliminary Blood - Venous - Lab Draw NO GROWTH AFTER 1 DAY Anaerobic Blood Culture - Preliminary NO GROWTH AFTER 1 DAY 12/28/19 22:20 Aerobic Blood Culture - Preliminary Blood - Venous NO GROWTH AFTER 1 DAY Anaerobic Blood Culture - Preliminary NO GROWTH AFTER 1 DAY 12/28/19 20:34 C. difficile Antigen & Toxins A,B - Final Stool / Feces Sepsis Event Note - Focused Exam Vital Signs: Vital Signs Temp Pulse Resp BP Pulse Ox 12/30/19 08:00 36.8 C 87 18 118/75 98 12/30/19 04:45 36.6 C 106 H 18 130/79 99 12/30/19 00:00 37 C 79 17 125/82 97 Date Exam was Performed: 12/30/19 Time Exam was Performed: 11:31 Orders Last 24hrs: Active Orders 24 hr Category Date Time Status Soft Diet [DIET] Diet 12/30/19 Breakfast Active Folic Acid Med 12/29/19 21:00 Active 1 mg PO BEDTIME Magnesium Sulfate/Water [Magnesium Sulfate in Water Med 12/30/19 11:12 Active Premix] 2 gm Premix Bag 1 bag IV ONETIME Nicotine [Habitrol] Med 12/29/19 17:15 Active 14 mg TRDERM DAILY Medication Orders Albuterol/Ipratropium (Duoneb 3.0-0.5 Mg/3 Ml) 3 ml NEB Q4HRRT PRN PRN Reason: Shortness Of Breath/wheezing Dextrose/Water (Dextrose 25% In Water) 10 ml IVPUSH ONETIME PRN PRN Reason: Hypoglycemia Last Admin: 12/29/19 01:11 Dose: 10 ml Documented by: LUC Diazepam (Valium.) 5 mg PO TID [facility] Last Admin: 12/30/19 05:18 Dose: 5 mg Documented by: Admin: 12/29/19 21:53 Dose: 5 mg Documented by: Admin: 12/29/19 14:03 Dose: 5 mg Documented by: Admin: 12/29/19 06:29 Dose: 5 mg Documented by: REMBERTO Folic Acid (Folic Acid) 1 mg PO BEDTIME [facility] Last Admin: 12/29/19 20:14 Dose: 1 mg Documented by: HAKAN Thiamine HCl 100 mg/ Sodium (Chloride) 101 mls @ 202 mls/hr IV DAILY [facility] Last Admin: 12/30/19 09:03 Dose: 202 mls/hr Documented by: Infusion: 12/29/19 10:01 Dose: 202 mls/hr Documented by: Admin: 12/29/19 09:31 Dose: 202 mls/hr Documented by: Infusion: 12/29/19 05:15 Dose: 202 mls/hr Documented by: Admin: 12/29/19 04:45 Dose: 202 mls/hr Documented by: PROFLUC Dextrose/Lactated Ringer's (Dextrose 5%-Lactated Ringers) 1,000 mls @ 125 mls/hr IV ASDIRECTED [facility] Last Admin: 12/30/19 10:16 Dose: 125 mls/hr Documented by: Infusion: 12/30/19 10:16 Dose: 125 mls/hr Documented by: Admin: 12/30/19 02:17 Dose: 125 mls/hr Documented by: Infusion: 12/30/19 02:17 Dose: 125 mls/hr Documented by: Admin: 12/29/19 18:25 Dose: 125 mls/hr Documented by: Infusion: 12/29/19 17:38 Dose: 125 mls/hr Documented by: Admin: 12/29/19 09:38 Dose: 125 mls/hr Documented by: KARMEN Magnesium Sulfate 2 gm/ Premix 50 mls @ 50 mls/hr IV ONETIME ONE Stop: 12/30/19 12:11 Lorazepam (Ativan) 0 mg IVPUSH Q4H PRN; Protocol PRN Reason: Withdrawal Symptoms Last Admin: 12/30/19 04:57 Dose: 1 mg Documented by: Admin: 12/30/19 00:30 Dose: 1 mg Documented by: Admin: 12/29/19 20:05 Dose: 1 mg Documented by: Admin: 12/29/19 18:24 Dose: 1 mg Documented by: Admin: 12/29/19 08:01 Dose: 1 mg Documented by: Admin: 12/29/19 03:14 Dose: 1 mg Documented by: PROFLUC Nicotine (Habitrol) 14 mg TRDERM DAILY [facility] Last Admin: 12/30/19 09:04 Dose: 14 mg Documented by: Admin: 12/29/19 17:50 Dose: 14 mg Documented by: KARMEN Ondansetron HCl (Zofran) 4 mg IVPUSH Q4H PRN PRN Reason: Nausea/Vomiting Pantoprazole Sodium (Protonix Iv) 40 mg IV Q12HR [facility] Last Admin: 12/30/19 09:03 Dose: 40 mg Documented by: Admin: 12/29/19 20:14 Dose: 40 mg Documented by: Admin: 12/29/19 09:26 Dose: 40 mg Documented by: KARMEN Sodium Chloride (Saline Flush) 10 ml FLUSH ASDIRECTED PRN PRN Reason: Keep Vein Open Sodium Chloride (Saline Flush) 2.5 ml FLUSH ASDIRECTED PRN PRN Reason: Keep Vein Open Vancomycin HCl (First-Vancomycin 25 Compounding Kit) 125 mg PO QID [facility] Last Admin: 12/30/19 05:19 Dose: 5 ml Documented by: Admin: 12/29/19 23:51 Dose: 5 ml Documented by: Admin: 12/29/19 17:50 Dose: 5 ml Documented by: Admin: 12/29/19 12:29 Dose: 5 ml Documented by: Admin: 12/29/19 08:00 Dose: 5 ml Documented by: ADAN Assessment/Plan Comment:: I performed a history and physical exam of the patient and discussed management with resident. I have reviewed the residents note and agree with documented findings and plan unless otherwise specified in my note.
[2019-12-29] MEDS: Pantoprazole 40 MG Vial IV SCH ×2 (09:26→20:14)
[2019-12-29] MEDS: Dextrose 5%-Lactated Ringers 1,000 ML IV SCH ×2 (09:38→18:25)
[2019-12-29] MEDS ORDERED: Calcium Carbonate 500 MG Tab.Chew PO ONE ×2 (09:47→12:00)
[2019-12-29] MEDS ORDERED: Potassium Chloride 20 MEQ Tab.ER PO ONE (14:21)
[2019-12-29] MEDS: Nicotine 14 MG/24 Hr Patch TRDERM SCH (17:50)
[2019-12-29] MEDS: Folic Acid 1 MG Tab PO SCH (20:14)
[2019-12-30] MEDS: LORazepam 2 MG/ML SDV IVPUSH PRN ×4 (00:30→23:04)
[2019-12-30] MEDS: Dextrose 5%-Lactated Ringers 1,000 ML IV SCH ×2 (02:17→10:16)
[2019-12-30] MEDS: Diazepam 5 MG Tab PO SCH ×3 (05:18→20:59)
[2019-12-30] MEDS: Vancomycin 25 MG/ML Compounding Kit PO SCH ×4 (05:19→23:06)
[2019-12-30 05:50] LABS: BLOOD UREA NITROGEN,BUN 4 mg/dL (7.0-18.0); CARBON DIOXIDE,CO2 23.2 mmol/L (21.0-32.0); CHLORIDE,CL 101 mmol/L (98-107); GLUCOSE RANDOM 196 mg/dL (74-106); POTASSIUM,K 3.1 mmol/L (3.5-5.1); SODIUM,NA 135 mmol/L (136-148)
[2019-12-30] MEDS ORDERED: Potassium Chloride 20 MEQ Tab.ER PO ONE (07:21)
[2019-12-30] MEDS ORDERED: Calcium Carbonate 500 MG Tab.Chew PO ONE (07:21)
--- NOTE | 2019-12-30 08:47 | PCM.PN ---
<Alber Araiza - Last Filed: 12/30/19 11:45> - General Info Date of Service: 12/30/19 Subjective Update: Patient reports having continued nausea, diarrhea and chills. Tolerating clear liquid diet. Reports diarrhea has improved a bit. Denies any pain or SOB. - Patient Data Vitals - Most Recent: Last Vital Signs Temp 36.8 C 12/30/19 08:00 Pulse 87 12/30/19 08:00 Resp 18 12/30/19 08:00 BP 118/75 12/30/19 08:00 Pulse Ox 98 12/30/19 08:00 Weight - Most Recent: 75.5 kg I&O - Last 24 Hours: Intake & Output 12/29/19 12/30/19 12/30/19 22:59 06:59 14:59 Intake Total 3981 2385 Balance 3981 2385 Lab Results Last 24 Hours: Laboratory Results - last 24 hr 12/29/19 12/29/19 12/29/19 Range/Units 07:07 12:28 17:48 WBC (4.0-11.0) K/uL RBC (4.50-5.90) M/uL Hgb (13.0-17.0) g/dL Hct (38.0-50.0) % MCV (80.0-98.0) fL MCH (27.0-32.0) pg MCHC (31.0-37.0) g/dL RDW Std Deviation (28.0-62.0) fl RDW Coeff of Fredis (11.0-15.0) % Plt Count (150-400) K/uL MPV (7.40-12.00) fL Neut % (Auto) (48.0-80.0) % Lymph % (Auto) (16.0-40.0) % Swisher % (Auto) (0.0-15.0) % Eos % (Auto) (0.0-7.0) % Baso % (Auto) (0.0-1.5) % Neut # (Auto) (1.4-5.7) K/uL Lymph # (Auto) (0.6-2.4) K/uL Swisher # (Auto) (0.0-0.8) K/uL Eos # (Auto) (0.0-0.7) K/uL Baso # (Auto) (0.0-0.1) K/uL Nucleated RBC % /100WBC Nucleated RBCs # K/uL Sodium (136-148) mmol/L Potassium (3.5-5.1) mmol/L Chloride (98-107) mmol/L Carbon Dioxide (21.0-32.0) mmol/L BUN (7.0-18.0) mg/dL Creatinine (0.8-1.3) mg/dL Est Cr Clr Drug Dosing mL/min Estimated GFR (MDRD) ml/min Glucose (74-106) mg/dL POC Glucose 139 H 112 H 110 (60-110) mg/dL Calcium (8.5-10.1) mg/dL Phosphorus (2.6-4.7) mg/dL Magnesium (1.8-2.4) mg/dL Total Bilirubin (0.2-1.0) mg/dL AST (15-37) IU/L ALT (14-63) IU/L Alkaline Phosphatase (46-116) U/L Total Protein (6.4-8.2) g/dL Albumin (3.4-5.0) g/dL Globulin (2.6-4.0) g/dL Albumin/Globulin Ratio (0.9-1.6) 12/30/19 12/30/19 12/30/19 Range/Units 01:02 05:12 05:12 WBC 3.59 L (4.0-11.0) K/uL RBC 4.41 L (4.50-5.90) M/uL Hgb 13.2 (13.0-17.0) g/dL Hct 39.4 (38.0-50.0) % MCV 89.3 (80.0-98.0) fL MCH 29.9 (27.0-32.0) pg MCHC 33.5 (31.0-37.0) g/dL RDW Std Deviation 47.9 (28.0-62.0) fl RDW Coeff of Fredis 15 (11.0-15.0) % Plt Count 61 L (150-400) K/uL MPV 11.20 (7.40-12.00) fL Neut % (Auto) 60.5 (48.0-80.0) % Lymph % (Auto) 30.6 (16.0-40.0) % Swisher % (Auto) 7.2 (0.0-15.0) % Eos % (Auto) 1.4 (0.0-7.0) % Baso % (Auto) 0.3 (0.0-1.5) % Neut # (Auto) 2.2 (1.4-5.7) K/uL Lymph # (Auto) 1.1 (0.6-2.4) K/uL Swisher # (Auto) 0.3 (0.0-0.8) K/uL Eos # (Auto) 0.1 (0.0-0.7) K/uL Baso # (Auto) 0.0 (0.0-0.1) K/uL Nucleated RBC % 0.0 /100WBC Nucleated RBCs # 0 K/uL Sodium 135 L (136-148) mmol/L Potassium 3.1 L (3.5-5.1) mmol/L Chloride 101 (98-107) mmol/L Carbon Dioxide 23.2 (21.0-32.0) mmol/L BUN 4 L (7.0-18.0) mg/dL Creatinine 0.9 (0.8-1.3) mg/dL Est Cr Clr Drug Dosing 117.37 mL/min Estimated GFR (MDRD) > 60.0 ml/min Glucose 196 H (74-106) mg/dL POC Glucose 74 (60-110) mg/dL Calcium 7.7 L (8.5-10.1) mg/dL Phosphorus (2.6-4.7) mg/dL Magnesium (1.8-2.4) mg/dL Total Bilirubin 1.3 H (0.2-1.0) mg/dL AST 259 H (15-37) IU/L ALT 191 H (14-63) IU/L Alkaline Phosphatase 80 (46-116) U/L Total Protein 6.0 L (6.4-8.2) g/dL Albumin 3.2 L (3.4-5.0) g/dL Globulin 2.8 (2.6-4.0) g/dL Albumin/Globulin Ratio 1.1 (0.9-1.6) 08/05/20 08/05/20 Range/Units 05:12 06:35 WBC (4.0-11.0) K/uL RBC (4.50-5.90) M/uL Hgb (13.0-17.0) g/dL Hct (38.0-50.0) % MCV (80.0-98.0) fL MCH (27.0-32.0) pg MCHC (31.0-37.0) g/dL RDW Std Deviation (28.0-62.0) fl RDW Coeff of Fredis (11.0-15.0) % Plt Count (150-400) K/uL MPV (7.40-12.00) fL Neut % (Auto) (48.0-80.0) % Lymph % (Auto) (16.0-40.0) % Swisher % (Auto) (0.0-15.0) % Eos % (Auto) (0.0-7.0) % Baso % (Auto) (0.0-1.5) % Neut # (Auto) (1.4-5.7) K/uL Lymph # (Auto) (0.6-2.4) K/uL Swisher # (Auto) (0.0-0.8) K/uL Eos # (Auto) (0.0-0.7) K/uL Baso # (Auto) (0.0-0.1) K/uL Nucleated RBC % /100WBC Nucleated RBCs # K/uL Sodium (136-148) mmol/L Potassium (3.5-5.1) mmol/L Chloride (98-107) mmol/L Carbon Dioxide (21.0-32.0) mmol/L BUN (7.0-18.0) mg/dL Creatinine (0.8-1.3) mg/dL Est Cr Clr Drug Dosing mL/min Estimated GFR (MDRD) ml/min Glucose (74-106) mg/dL POC Glucose 198 H (60-110) mg/dL Calcium (8.5-10.1) mg/dL Phosphorus 4.6 (2.6-4.7) mg/dL Magnesium 1.3 L (1.8-2.4) mg/dL Total Bilirubin (0.2-1.0) mg/dL AST (15-37) IU/L ALT (14-63) IU/L Alkaline Phosphatase (46-116) U/L Total Protein (6.4-8.2) g/dL Albumin (3.4-5.0) g/dL Globulin (2.6-4.0) g/dL Albumin/Globulin Ratio (0.9-1.6) Hans Results Last 24 Hours: Microbiology 12/28/19 22:34 Aerobic Blood Culture - Preliminary Blood - Venous - Lab Draw NO GROWTH AFTER 1 DAY Anaerobic Blood Culture - Preliminary NO GROWTH AFTER 1 DAY 12/28/19 22:20 Aerobic Blood Culture - Preliminary Blood - Venous NO GROWTH AFTER 1 DAY Anaerobic Blood Culture - Preliminary NO GROWTH AFTER 1 DAY 12/28/19 20:34 C. difficile Antigen & Toxins A,B - Final Stool / Feces Med Orders - Current: Current Medications Albuterol/Ipratropium (Duoneb 3.0-0.5 Mg/3 Ml) 3 ml NEB Q4HRRT PRN PRN Reason: Shortness Of Breath/wheezing Dextrose/Water (Dextrose 25% In Water) 10 ml IVPUSH ONETIME PRN PRN Reason: Hypoglycemia Last Admin: 12/29/19 01:11 Dose: 10 ml Documented by: Diazepam (Valium.) 5 mg PO TID [facility] Last Admin: 12/30/19 05:18 Dose: 5 mg Documented by: Folic Acid (Folic Acid) 1 mg PO BEDTIME [facility] Last Admin: 12/29/19 20:14 Dose: 1 mg Documented by: Thiamine HCl 100 mg/ Sodium (Chloride) 101 mls @ 202 mls/hr IV DAILY [facility] Last Admin: 12/29/19 09:31 Dose: 202 mls/hr Documented by: Dextrose/Lactated Ringer's (Dextrose 5%-Lactated Ringers) 1,000 mls @ 125 mls/hr IV ASDIRECTED [facility] Last Admin: 12/30/19 02:17 Dose: 125 mls/hr Documented by: Lorazepam (Ativan) 0 mg IVPUSH Q4H PRN; Protocol PRN Reason: Withdrawal Symptoms Last Admin: 12/30/19 04:57 Dose: 1 mg Documented by: Nicotine (Habitrol) 14 mg TRDERM DAILY [facility] Last Admin: 12/29/19 17:50 Dose: 14 mg Documented by: Ondansetron HCl (Zofran) 4 mg IVPUSH Q4H PRN PRN Reason: Nausea/Vomiting Pantoprazole Sodium (Protonix Iv) 40 mg IV Q12HR [facility] Last Admin: 12/29/19 20:14 Dose: 40 mg Documented by: Sodium Chloride (Saline Flush) 10 ml FLUSH ASDIRECTED PRN PRN Reason: Keep Vein Open Sodium Chloride (Saline Flush) 2.5 ml FLUSH ASDIRECTED PRN PRN Reason: Keep Vein Open Vancomycin HCl (First-Vancomycin 25 Compounding Kit) 125 mg PO QID [facility] Last Admin: 12/30/19 05:19 Dose: 5 ml Documented by: Discontinued Medications Calcium Carbonate/Glycine (Tums) 1,000 mg PO ONETIME ONE Stop: 12/29/19 09:48 Last Admin: 12/29/19 12:29 Dose: 1,000 mg Documented by: Calcium Carbonate/Glycine (Tums) 1,000 mg PO ONETIME ONE Stop: 12/29/19 12:01 Last Admin: 12/29/19 13:45 Dose: Not Given Documented by: Calcium Carbonate/Glycine (Tums) 1,000 mg PO ONETIME ONE Stop: 12/30/19 07:22 Last Admin: 12/30/19 07:50 Dose: 1,000 mg Documented by: Sodium Chloride (Normal Saline) 1,000 mls @ 999 mls/hr IV BOLUS ONE Stop: 12/28/19 21:35 Last Admin: 12/28/19 20:47 Dose: 999 mls/hr Documented by: Pantoprazole Sodium 80 mg/ (Sodium Chloride) 20 mls @ 420 mls/hr IVPUSH ONETIME ONE Stop: 12/28/19 22:09 Last Admin: 12/28/19 22:49 Dose: 420 mls/hr Documented by: Lactated Ringer's (Ringers, Lactated) 1,000 mls @ 125 mls/hr IV ASDIRECTED [facility] Last Admin: 12/29/19 04:45 Dose: 125 mls/hr Documented by: Lactated Ringer's (Ringers, Lactated) 1,000 mls @ 999 mls/hr IV .BOLUS ONE Stop: 12/28/19 23:47 Last Admin: 12/28/19 23:34 Dose: 999 mls/hr Documented by: Magnesium Sulfate 4 gm/ Premix 100 mls @ 50 mls/hr IV ONETIME ONE Stop: 12/29/19 01:25 Last Admin: 12/29/19 01:23 Dose: 50 mls/hr Documented by: Multivitamins/Minerals 10 ml/Thiamine HCl 100 mg/ Folic Acid 1 mg/ Sodium Chloride 1,011.2 mls @ 125 mls/hr IV ONETIME ONE Stop: 12/29/19 07:32 Last Admin: 12/29/19 00:55 Dose: 125 mls/hr Documented by: Iopamidol (Isovue-370 (76%)) 100 ml IVPUSH ONETIME ONE Stop: 12/28/19 21:20 Last Admin: 12/28/19 21:20 Dose: 100 ml Documented by: Lorazepam (Ativan) 1 mg IVPUSH ONETIME ONE Stop: 12/28/19 22:13 Last Admin: 12/28/19 22:53 Dose: 1 mg Documented by: Morphine Sulfate (Morphine) 1 mg IVPUSH Q4H PRN PRN Reason: Pain (severe 7-10) Stop: 12/29/19 22:38 Morphine Sulfate (Morphine) 1 mg IVPUSH Q4H PRN PRN Reason: Pain (severe 7-10) Stop: 12/29/19 22:38 Ondansetron HCl (Zofran) 4 mg IVPUSH ONETIME ONE Stop: 12/28/19 22:08 Last Admin: 12/28/19 22:47 Dose: 4 mg Documented by: Potassium Chloride (Klor-Con M20) 40 meq PO ONETIME ONE Stop: 12/29/19 14:22 Last Admin: 12/29/19 16:54 Dose: 40 meq Documented by: Potassium Chloride (Klor-Con M20) 40 meq PO ONETIME ONE Stop: 12/30/19 07:22 Last Admin: 12/30/19 07:50 Dose: 40 meq Documented by: Vancomycin HCl (Vancomycin) 125 mg PO Q6H [facility] Last Admin: 12/29/19 01:23 Dose: 125 mg Documented by: Vancomycin HCl (First-Vancomycin 25 Compounding Kit) 125 mg PO QID [facility] Last Admin: 12/29/19 19:46 Dose: Not Given Documented by: - Exam General: Alert, Oriented, Cooperative Lungs: Clear to Auscultation, Normal Respiratory Effort Cardiovascular: Regular Rate, Regular Rhythm GI/Abdominal Exam: Normal Bowel Sounds, Soft, Non-Tender, No Distention Extremities: Normal Inspection, No Pedal Edema Skin: Warm, Dry, Intact Sepsis Event Note - Evaluation Sepsis Screening Result: No Definite Risk - Focused Exam Vital Signs: Vital Signs Temp Pulse Resp BP Pulse Ox 12/30/19 08:00 36.8 C 87 18 118/75 98 12/30/19 04:45 36.6 C 106 H 18 130/79 99 12/30/19 00:00 37 C 79 17 125/82 97 Date Exam was Performed: 12/30/19 Time Exam was Performed: 11:45 - Problem List Review Problem List Initiated/Reviewed/Updated: Yes - My Orders Last 24 Hours: My Active Orders 12/29/19 09:23 Code Status [Resuscitation Status] Routine 12/29/19 17:15 Nicotine [Habitrol] 14 mg TRDERM DAILY 12/29/19 21:00 Folic Acid 1 mg PO BEDTIME - Plan Plan:: Assessment and Plan: 1. Alcohol intoxication: - Patient on Valium 5mg TID and IV Ativan prn CIWA protocol. Continue thiamine and folic acid. 2. Dehydration: - Patient tolerating clear liquid diet well. Will advance to soft diet today. Will continue IV D5-LR @ 125 cc/hr with accu-checks q6h. 3. Gastritis: - Stool Hemoccult positive. Patient on IV PPI BID. 4. C. diff colitis: - Stool tested positive for c. diff. Patient on PO vancomycin. 5. DVT prophylaxis: SCD's. <Jose Wilson - Last Filed: 01/02/20 13:16> - General Info Subjective Update: I have seen and evaluated the patient and agree with the residents note unless specified in my note - Patient Data Vitals - Most Recent: Last Vital Signs Temp 36.6 C 01/02/20 11:00 Pulse 100 01/02/20 11:00 Resp 16 01/02/20 11:00 BP 128/78 01/02/20 11:00 Pulse Ox 95 01/02/20 11:00 I&O - Last 24 Hours: Intake & Output 01/01/20 01/02/20 01/02/20 22:59 06:59 14:59 Intake Total 2500 1200 Output Total 900 1650 Balance 1600 -450 Lab Results Last 24 Hours: Laboratory Results - last 24 hr 12/31/19 01/01/20 01/02/20 Range/Units 05:53 19:01 05:18 WBC 5.24 (4.0-11.0) K/uL RBC 4.29 L (4.50-5.90) M/uL Hgb 12.9 L (13.0-17.0) g/dL Hct 39.6 (38.0-50.0) % MCV 92.3 (80.0-98.0) fL MCH 30.1 (27.0-32.0) pg MCHC 32.6 (31.0-37.0) g/dL RDW Std Deviation 51.5 (28.0-62.0) fl RDW Coeff of Fredis 15 (11.0-15.0) % Plt Count 135 L (150-400) K/uL MPV 12.40 H (7.40-12.00) fL Neut % (Auto) 52.4 (48.0-80.0) % Lymph % (Auto) 29.8 (16.0-40.0) % Swisher % (Auto) 15.1 H (0.0-15.0) % Eos % (Auto) 2.1 (0.0-7.0) % Baso % (Auto) 0.6 (0.0-1.5) % Neut # (Auto) 2.8 (1.4-5.7) K/uL Lymph # (Auto) 1.6 (0.6-2.4) K/uL Swisher # (Auto) 0.8 (0.0-0.8) K/uL Eos # (Auto) 0.1 (0.0-0.7) K/uL Baso # (Auto) 0.0 (0.0-0.1) K/uL Nucleated RBC % 0.0 /100WBC Nucleated RBCs # 0 K/uL INR Sodium (136-148) mmol/L Potassium (3.5-5.1) mmol/L Chloride (98-107) mmol/L Carbon Dioxide (21.0-32.0) mmol/L BUN (7.0-18.0) mg/dL Creatinine (0.8-1.3) mg/dL Est Cr Clr Drug Dosing mL/min Estimated GFR (MDRD) ml/min Glucose (74-106) mg/dL POC Glucose 109 (60-110) mg/dL Calcium (8.5-10.1) mg/dL Phosphorus (2.6-4.7) mg/dL Magnesium (1.8-2.4) mg/dL Total Bilirubin (0.2-1.0) mg/dL AST (15-37) IU/L ALT (14-63) IU/L Alkaline Phosphatase (46-116) U/L Total Protein (6.4-8.2) g/dL Albumin (3.4-5.0) g/dL Globulin (2.6-4.0) g/dL Albumin/Globulin Ratio (0.9-1.6) Hepatitis A IgM Ab Negative (Negative) Hep Bs Antigen Negative (Negative) Hep B Core IgM Ab Negative (Negative) Hepatitis C Antibody <0.1 (0.0-0.9) s/co ratio 01/02/20 01/02/20 01/02/20 Range/Units 05:18 06:29 12:01 WBC (4.0-11.0) K/uL RBC (4.50-5.90) M/uL Hgb (13.0-17.0) g/dL Hct (38.0-50.0) % MCV (80.0-98.0) fL MCH (27.0-32.0) pg MCHC (31.0-37.0) g/dL RDW Std Deviation (28.0-62.0) fl RDW Coeff of Fredis (11.0-15.0) % Plt Count (150-400) K/uL MPV (7.40-12.00) fL Neut % (Auto) (48.0-80.0) % Lymph % (Auto) (16.0-40.0) % Swisher % (Auto) (0.0-15.0) % Eos % (Auto) (0.0-7.0) % Baso % (Auto) (0.0-1.5) % Neut # (Auto) (1.4-5.7) K/uL Lymph # (Auto) (0.6-2.4) K/uL Swisher # (Auto) (0.0-0.8) K/uL Eos # (Auto) (0.0-0.7) K/uL Baso # (Auto) (0.0-0.1) K/uL Nucleated RBC % /100WBC Nucleated RBCs # K/uL INR 0.93 Sodium 138 (136-148) mmol/L Potassium 4.0 (3.5-5.1) mmol/L Chloride 103 (98-107) mmol/L Carbon Dioxide 29.1 (21.0-32.0) mmol/L BUN 12 (7.0-18.0) mg/dL Creatinine 0.8 (0.8-1.3) mg/dL Est Cr Clr Drug Dosing 132.04 mL/min Estimated GFR (MDRD) > 60.0 ml/min Glucose 110 H (74-106) mg/dL POC Glucose 102 (60-110) mg/dL Calcium 8.5 (8.5-10.1) mg/dL Phosphorus 5.3 H (2.6-4.7) mg/dL Magnesium 1.6 L (1.8-2.4) mg/dL Total Bilirubin 0.4 (0.2-1.0) mg/dL AST 502 H (15-37) IU/L ALT 520 H (14-63) IU/L Alkaline Phosphatase 141 H (46-116) U/L Total Protein 6.3 L (6.4-8.2) g/dL Albumin 3.2 L (3.4-5.0) g/dL Globulin 3.1 (2.6-4.0) g/dL Albumin/Globulin Ratio 1.0 (0.9-1.6) Hepatitis A IgM Ab (Negative) Hep Bs Antigen (Negative) Hep B Core IgM Ab (Negative) Hepatitis C Antibody (0.0-0.9) s/co ratio 01/02/20 Range/Units 12:03 WBC (4.0-11.0) K/uL RBC (4.50-5.90) M/uL Hgb (13.0-17.0) g/dL Hct (38.0-50.0) % MCV (80.0-98.0) fL MCH (27.0-32.0) pg MCHC (31.0-37.0) g/dL RDW Std Deviation (28.0-62.0) fl RDW Coeff of Fredis (11.0-15.0) % Plt Count (150-400) K/uL MPV (7.40-12.00) fL Neut % (Auto) (48.0-80.0) % Lymph % (Auto) (16.0-40.0) % Swisher % (Auto) (0.0-15.0) % Eos % (Auto) (0.0-7.0) % Baso % (Auto) (0.0-1.5) % Neut # (Auto) (1.4-5.7) K/uL Lymph # (Auto) (0.6-2.4) K/uL Swisher # (Auto) (0.0-0.8) K/uL Eos # (Auto) (0.0-0.7) K/uL Baso # (Auto) (0.0-0.1) K/uL Nucleated RBC % /100WBC Nucleated RBCs # K/uL INR Sodium (136-148) mmol/L Potassium (3.5-5.1) mmol/L Chloride (98-107) mmol/L Carbon Dioxide (21.0-32.0) mmol/L BUN (7.0-18.0) mg/dL Creatinine (0.8-1.3) mg/dL Est Cr Clr Drug Dosing mL/min Estimated GFR (MDRD) ml/min Glucose (74-106) mg/dL POC Glucose 105 (60-110) mg/dL Calcium (8.5-10.1) mg/dL Phosphorus (2.6-4.7) mg/dL Magnesium (1.8-2.4) mg/dL Total Bilirubin (0.2-1.0) mg/dL AST (15-37) IU/L ALT (14-63) IU/L Alkaline Phosphatase (46-116) U/L Total Protein (6.4-8.2) g/dL Albumin (3.4-5.0) g/dL Globulin (2.6-4.0) g/dL Albumin/Globulin Ratio (0.9-1.6) Hepatitis A IgM Ab (Negative) Hep Bs Antigen (Negative) Hep B Core IgM Ab (Negative) Hepatitis C Antibody (0.0-0.9) s/co ratio Hans Results Last 24 Hours: Microbiology 12/28/19 20:34 Stool Culture - Final Stool / Feces Shiga Toxin I & II - Final 12/28/19 22:34 Aerobic Blood Culture - Preliminary Blood - Venous - Lab Draw NO GROWTH AFTER 4 DAYS Anaerobic Blood Culture - Preliminary NO GROWTH AFTER 4 DAYS 12/28/19 22:20 Aerobic Blood Culture - Preliminary Blood - Venous NO GROWTH AFTER 4 DAYS Anaerobic Blood Culture - Preliminary NO GROWTH AFTER 4 DAYS Med Orders - Current: Current Medications Albuterol/Ipratropium (Duoneb 3.0-0.5 Mg/3 Ml) 3 ml NEB Q4HRRT PRN PRN Reason: Shortness Of Breath/wheezing Dextrose/Water (Dextrose 25% In Water) 10 ml IVPUSH ONETIME PRN PRN Reason: Hypoglycemia Last Admin: 12/29/19 01:11 Dose: 10 ml Documented by: Diazepam (Valium.) 2.5 mg PO DAILY [facility] Fluoxetine HCl (Prozac) 10 mg PO DAILY [facility] Last Admin: 01/02/20 08:38 Dose: 10 mg Documented by: Folic Acid (Folic Acid) 1 mg PO BEDTIME [facility] Last Admin: 01/01/20 21:54 Dose: 1 mg Documented by: Thiamine HCl 100 mg/ Sodium (Chloride) 101 mls @ 202 mls/hr IV DAILY [facility] Last Admin: 01/02/20 09:57 Dose: 202 mls/hr Documented by: Lactated Ringer's (Ringers, Lactated) 1,000 mls @ 100 mls/hr IV ASDIRECTED [facility] Last Admin: 01/02/20 12:25 Dose: 100 mls/hr Documented by: Lorazepam (Ativan) 0 mg IVPUSH Q4H PRN; Protocol PRN Reason: Withdrawal Symptoms Last Admin: 01/01/20 22:09 Dose: 1 mg Documented by: Melatonin (Melatonin) 6 mg PO BEDTIME [facility] Last Admin: 01/01/20 21:54 Dose: 6 mg Documented by: Nicotine (Habitrol) 14 mg TRDERM DAILY [facility] Last Admin: 01/02/20 08:40 Dose: 14 mg Documented by: Ondansetron HCl (Zofran) 4 mg IVPUSH Q4H PRN PRN Reason: Nausea/Vomiting Last Admin: 12/30/19 11:43 Dose: 4 mg Documented by: Pantoprazole Sodium (Protonix Iv) 40 mg IV Q12HR [facility] Last Admin: 01/02/20 08:32 Dose: 40 mg Documented by: Sodium Chloride (Saline Flush) 10 ml FLUSH ASDIRECTED PRN PRN Reason: Keep Vein Open Sodium Chloride (Saline Flush) 2.5 ml FLUSH ASDIRECTED PRN PRN Reason: Keep Vein Open Vancomycin HCl (First-Vancomycin 25 Compounding Kit) 125 mg PO QID [facility] Last Admin: 01/02/20 12:24 Dose: 5 ml Documented by: Discontinued Medications Calcium Carbonate/Glycine (Tums) 1,000 mg PO ONETIME ONE Stop: 12/29/19 09:48 Last Admin: 12/29/19 12:29 Dose: 1,000 mg Documented by: Calcium Carbonate/Glycine (Tums) 1,000 mg PO ONETIME ONE Stop: 12/29/19 12:01 Last Admin: 12/29/19 13:45 Dose: Not Given Documented by: Calcium Carbonate/Glycine (Tums) 1,000 mg PO ONETIME ONE Stop: 12/30/19 07:22 Last Admin: 12/30/19 07:50 Dose: 1,000 mg Documented by: Diazepam (Valium.) 5 mg PO TID [facility] Last Admin: 12/31/19 05:02 Dose: 5 mg Documented by: Diazepam (Valium.) 5 mg PO BID [facility] Last Admin: 01/01/20 08:41 Dose: 5 mg Documented by: Diazepam (Valium.) 5 mg PO DAILY [facility] Last Admin: 01/02/20 08:38 Dose: 5 mg Documented by: Fluoxetine HCl (Prozac) 10 mg PO BEDTIME [facility] Last Admin: 12/31/19 21:28 Dose: 10 mg Documented by: Sodium Chloride (Normal Saline) 1,000 mls @ 999 mls/hr IV BOLUS ONE Stop: 12/28/19 21:35 Last Admin: 12/28/19 20:47 Dose: 999 mls/hr Documented by: Pantoprazole Sodium 80 mg/ (Sodium Chloride) 20 mls @ 420 mls/hr IVPUSH ONETIME ONE Stop: 12/28/19 22:09 Last Admin: 12/28/19 22:49 Dose: 420 mls/hr Documented by: Lactated Ringer's (Ringers, Lactated) 1,000 mls @ 125 mls/hr IV ASDIRECTED [facility] Last Admin: 12/29/19 04:45 Dose: 125 mls/hr Documented by: Lactated Ringer's (Ringers, Lactated) 1,000 mls @ 999 mls/hr IV .BOLUS ONE Stop: 12/28/19 23:47 Last Admin: 12/28/19 23:34 Dose: 999 mls/hr Documented by: Magnesium Sulfate 4 gm/ Premix 100 mls @ 50 mls/hr IV ONETIME ONE Stop: 12/29/19 01:25 Last Admin: 12/29/19 01:23 Dose: 50 mls/hr Documented by: Multivitamins/Minerals 10 ml/Thiamine HCl 100 mg/ Folic Acid 1 mg/ Sodium Chloride 1,011.2 mls @ 125 mls/hr IV ONETIME ONE Stop: 12/29/19 07:32 Last Admin: 12/29/19 00:55 Dose: 125 mls/hr Documented by: Dextrose/Lactated Ringer's (Dextrose 5%-Lactated Ringers) 1,000 mls @ 125 [facility]ls[facility] Last Admin: 12/30/19 10:16 Dose: 125 mls/hr Documented by: Magnesium Sulfate 2 gm/ Premix 50 mls @ 50 mls/hr IV ONETIME ONE Stop: 12/30/19 12:11 Last Admin: 12/30/19 11:43 Dose: 50 mls/hr Documented by: Lactated Ringer's (Ringers, Lactated) 1,000 mls @ 100 mls[facility] Last Admin: 12/31/19 05:02 Dose: 100 mls/hr Documented by: Magnesium Sulfate 4 gm/ Premix 100 mls @ 50 mls/hr IV ONETIME ONE Stop: 12/31/19 10:09 Last Admin: 12/31/19 09:27 Dose: 50 mls/hr Documented by: Lactated Ringer's (Ringers, Lactated) 1,000 mls @ 999 mls/hr IV .BOLUS ONE Stop: 12/31/19 09:58 Last Admin: 12/31/19 09:43 Dose: 999 mls/hr Documented by: Lactated Ringer's (Ringers, Lactated) 1,000 mls @ 125 mls/hr IV Q8H [facility] Last Admin: 01/01/20 05:32 Dose: 125 mls/hr Documented by: Magnesium Sulfate 2 gm/ Premix 50 mls @ 50 mls/hr IV ONETIME ONE Stop: 01/02/20 08:46 Last Admin: 01/02/20 08:43 Dose: 50 mls/hr Documented by: Iopamidol (Isovue-370 (76%)) 100 ml IVPUSH ONETIME ONE Stop: 12/28/19 21:20 Last Admin: 12/28/19 21:20 Dose: 100 ml Documented by: Lorazepam (Ativan) 1 mg IVPUSH ONETIME ONE Stop: 12/28/19 22:13 Last Admin: 12/28/19 22:53 Dose: 1 mg Documented by: Morphine Sulfate (Morphine) 1 mg IVPUSH Q4H PRN PRN Reason: Pain (severe 7-10) Stop: 12/29/19 22:38 Morphine Sulfate (Morphine) 1 mg IVPUSH Q4H PRN PRN Reason: Pain (severe 7-10) Stop: 12/29/19 22:38 Ondansetron HCl (Zofran) 4 mg IVPUSH ONETIME ONE Stop: 12/28/19 22:08 Last Admin: 12/28/19 22:47 Dose: 4 mg Documented by: Potassium Chloride (Klor-Con M20) 40 meq PO ONETIME ONE Stop: 12/29/19 14:22 Last Admin: 12/29/19 16:54 Dose: 40 meq Documented by: Potassium Chloride (Klor-Con M20) 40 meq PO ONETIME ONE Stop: 12/30/19 07:22 Last Admin: 12/30/19 07:50 Dose: 40 meq Documented by: Vancomycin HCl (Vancomycin) 125 mg PO Q6H [facility] Last Admin: 12/29/19 01:23 Dose: 125 mg Documented by: Vancomycin HCl (First-Vancomycin 25 Compounding Kit) 125 mg PO QID [facility] Last Admin: 12/29/19 19:46 Dose: Not Given Documented by: Sepsis Event Note - Focused Exam Vital Signs: Vital Signs Temp Pulse Resp BP BP Pulse Ox 01/02/20 11:00 36.6 C 100 16 128/78 95 01/02/20 07:43 36.4 C 75 19 101/69 98 01/02/20 04:22 36.9 C 81 16 108/60 97 Date Exam was Performed: 01/02/20 Time Exam was Performed: 13:16
[2019-12-30] MEDS: Thiamine 100 MG in Sodium Chloride 0.9% 100 ML IV SCH (09:03)
[2019-12-30] MEDS: Pantoprazole 40 MG Vial IV SCH ×2 (09:03→20:57)
[2019-12-30] MEDS: Nicotine 14 MG/24 Hr Patch TRDERM SCH (09:04)
[2019-12-30] MEDS ORDERED: Magnesium Sulfate/Water 2 GM in Premix Bag 1 BAG IV ONE (11:12)
[2019-12-30] MEDS: Lactated Ringers 1,000 ML IV SCH (19:00)
[2019-12-30] MEDS: Folic Acid 1 MG Tab PO SCH (20:59)
[2019-12-31] MEDS: Lactated Ringers 1,000 ML IV SCH ×3 (05:02→23:20)
[2019-12-31] MEDS: Vancomycin 25 MG/ML Compounding Kit PO SCH ×4 (05:02→23:20)
[2019-12-31] MEDS: Diazepam 5 MG Tab PO SCH ×2 (05:02→21:30)
[2019-12-31 06:25] LABS: BLOOD UREA NITROGEN,BUN 9 mg/dL (7.0-18.0); CARBON DIOXIDE,CO2 26.1 mmol/L (21.0-32.0); CHLORIDE,CL 103 mmol/L (98-107); GLUCOSE RANDOM 105 mg/dL (74-106); POTASSIUM,K 3.8 mmol/L (3.5-5.1); SODIUM,NA 137 mmol/L (136-148)
[2019-12-31] MEDS ORDERED: Magnesium Sulfate/Water 4 GM in Premix Bag 1 BAG IV ONE (08:10)
[2019-12-31] MEDS ORDERED: Lactated Ringers 1,000 ML IV ONE (08:58)
[2019-12-31] MEDS: Thiamine 100 MG in Sodium Chloride 0.9% 100 ML IV SCH (09:27)
[2019-12-31] MEDS: Pantoprazole 40 MG Vial IV SCH ×2 (09:28→21:28)
[2019-12-31] MEDS: Nicotine 14 MG/24 Hr Patch TRDERM SCH (09:34)
--- NOTE | 2019-12-31 09:47 | PCM.PN ---
- General Info Date of Service: 12/31/19 Admission Dx/Problem (Free Text): Admission Diagnosis/Problem Admission Diagnosis/Problem Alcohol withdrawal, cdiff colitis Subjective Update: Feeling tired this morning, reports diarrhea is slightly improved. Had two small diarrhea stools overnight. Feeling very hungry this morning. Abdominal pain is improved, mild cramping before having a stool. Continues to have withdrawal symptoms, including hallucinations when he closes his eyes. reports feeling very unsteady and lightheaded when he stands up. Functional Status: Reports: Pain Controlled, Tolerating Diet - Review of Systems General: Reports: Weakness, Malaise. Denies: Fever HEENT: Reports: Visual Changes (blurred vison continues since admission.). Denies: Sore Throat Pulmonary: Reports: No Symptoms. Denies: Shortness of Breath Cardiovascular: Reports: Lightheadedness. Denies: Chest Pain Gastrointestinal: Reports: Abdominal Pain, Diarrhea. Denies: Nausea, Vomiting Genitourinary: Reports: No Symptoms. Denies: Dysuria, Frequency, Burning Musculoskeletal: Reports: No Symptoms Skin: Reports: No Symptoms Neurological: Reports: Tremors Psychiatric: Reports: No Symptoms - Patient Data Vitals - Most Recent: Last Vital Signs Temp 98.4 F 12/31/19 05:03 Pulse 78 12/31/19 05:03 Resp 16 12/31/19 05:03 BP 120/63 12/31/19 05:03 Pulse Ox 96 12/31/19 05:03 Weight - Most Recent: 75.5 kg I&O - Last 24 Hours: Intake & Output 12/30/19 12/31/19 12/31/19 22:59 06:59 14:59 Intake Total 3511 3994 Output Total 2024 2400 Balance 1486 1594 Lab Results Last 24 Hours: Laboratory Results - last 24 hr 12/30/19 12/30/19 12/31/19 Range/Units 13:30 19:01 05:53 WBC 4.57 (4.0-11.0) K/uL RBC 4.28 L (4.50-5.90) M/uL Hgb 12.8 L (13.0-17.0) g/dL Hct 38.5 (38.0-50.0) % MCV 90.0 (80.0-98.0) fL MCH 29.9 (27.0-32.0) pg MCHC 33.2 (31.0-37.0) g/dL RDW Std Deviation 49.1 (28.0-62.0) fl RDW Coeff of Fredis 15 (11.0-15.0) % Plt Count 67 L (150-400) K/uL MPV 12.60 H (7.40-12.00) fL Neut % (Auto) 57.6 (48.0-80.0) % Lymph % (Auto) 31.7 (16.0-40.0) % [place] % (Auto) 7.9 (0.0-15.0) % Eos % (Auto) 2.6 (0.0-7.0) % Baso % (Auto) 0.2 (0.0-1.5) % Neut # (Auto) 2.6 (1.4-5.7) K/uL Lymph # (Auto) 1.5 (0.6-2.4) K/uL [place] # (Auto) 0.4 (0.0-0.8) K/uL Eos # (Auto) 0.1 (0.0-0.7) K/uL Baso # (Auto) 0.0 (0.0-0.1) K/uL Nucleated RBC % 0.0 /100WBC Nucleated RBCs # 0 K/uL Sodium (136-148) mmol/L Potassium (3.5-5.1) mmol/L Chloride (98-107) mmol/L Carbon Dioxide (21.0-32.0) mmol/L BUN (7.0-18.0) mg/dL Creatinine (0.8-1.3) mg/dL Est Cr Clr Drug Dosing mL/min Estimated GFR (MDRD) ml/min Glucose (74-106) mg/dL POC Glucose 119 H 110 (60-110) mg/dL Calcium (8.5-10.1) mg/dL Phosphorus (2.6-4.7) mg/dL Magnesium (1.8-2.4) mg/dL Total Bilirubin (0.2-1.0) mg/dL AST (15-37) IU/L ALT (14-63) IU/L Alkaline Phosphatase (46-116) U/L Total Protein (6.4-8.2) g/dL Albumin (3.4-5.0) g/dL Globulin (2.6-4.0) g/dL Albumin/Globulin Ratio (0.9-1.6) 12/31/19 12/31/19 Range/Units 05:53 08:29 WBC (4.0-11.0) K/uL RBC (4.50-5.90) M/uL Hgb (13.0-17.0) g/dL Hct (38.0-50.0) % MCV (80.0-98.0) fL MCH (27.0-32.0) pg MCHC (31.0-37.0) g/dL RDW Std Deviation (28.0-62.0) fl RDW Coeff of Fredis (11.0-15.0) % Plt Count (150-400) K/uL MPV (7.40-12.00) fL Neut % (Auto) (48.0-80.0) % Lymph % (Auto) (16.0-40.0) % [place] % (Auto) (0.0-15.0) % Eos % (Auto) (0.0-7.0) % Baso % (Auto) (0.0-1.5) % Neut # (Auto) (1.4-5.7) K/uL Lymph # (Auto) (0.6-2.4) K/uL [place] # (Auto) (0.0-0.8) K/uL Eos # (Auto) (0.0-0.7) K/uL Baso # (Auto) (0.0-0.1) K/uL Nucleated RBC % /100WBC Nucleated RBCs # K/uL Sodium 137 (136-148) mmol/L Potassium 3.8 (3.5-5.1) mmol/L Chloride 103 (98-107) mmol/L Carbon Dioxide 26.1 (21.0-32.0) mmol/L BUN 9 (7.0-18.0) mg/dL Creatinine 0.8 (0.8-1.3) mg/dL Est Cr Clr Drug Dosing 132.04 mL/min Estimated GFR (MDRD) > 60.0 ml/min Glucose 105 (74-106) mg/dL POC Glucose 104 (60-110) mg/dL Calcium 8.3 L (8.5-10.1) mg/dL Phosphorus 4.7 (2.6-4.7) mg/dL Magnesium 1.5 L (1.8-2.4) mg/dL Total Bilirubin 0.8 (0.2-1.0) mg/dL AST 247 H (15-37) IU/L ALT 219 H (14-63) IU/L Alkaline Phosphatase 126 H (46-116) U/L Total Protein 5.9 L (6.4-8.2) g/dL Albumin 3.1 L (3.4-5.0) g/dL Globulin 2.8 (2.6-4.0) g/dL Albumin/Globulin Ratio 1.1 (0.9-1.6) Hans Results Last 24 Hours: Microbiology 12/28/19 22:34 Aerobic Blood Culture - Preliminary Blood - Venous - Lab Draw NO GROWTH AFTER 2 DAYS Anaerobic Blood Culture - Preliminary NO GROWTH AFTER 2 DAYS 12/28/19 22:20 Aerobic Blood Culture - Preliminary Blood - Venous NO GROWTH AFTER 2 DAYS Anaerobic Blood Culture - Preliminary NO GROWTH AFTER 2 DAYS 12/28/19 20:34 Clostridioides difficile (PCR) - Final Stool / Feces Clostridioides difficile Toxin Assay - Final 12/28/19 20:34 Cryptosporidium/Giardia - Final Stool / Feces 12/28/19 20:34 Shiga Toxin I & II - Final Stool / Feces Med Orders - Current: Current Medications Albuterol/Ipratropium (Duoneb 3.0-0.5 Mg/3 Ml) 3 ml NEB Q4HRRT PRN PRN Reason: Shortness Of Breath/wheezing Dextrose/Water (Dextrose 25% In Water) 10 ml IVPUSH ONETIME PRN PRN Reason: Hypoglycemia Last Admin: 12/29/19 01:11 Dose: 10 ml Documented by: Diazepam (Valium.) 5 mg PO TID KRISTIN Last Admin: 12/31/19 05:02 Dose: 5 mg Documented by: Folic Acid (Folic Acid) 1 mg PO BEDTIME [facility] Last Admin: 12/30/19 20:59 Dose: 1 mg Documented by: Thiamine HCl 100 mg/ Sodium (Chloride) 101 mls @ 202 mls/hr IV DAILY [facility] Last Admin: 12/31/19 09:27 Dose: 202 mls/hr Documented by: Lactated Ringer's (Ringers, Lactated) 1,000 mls @ 100 mls/hr IV ASDIRECTED [facility] Last Admin: 12/31/19 05:02 Dose: 100 mls/hr Documented by: Magnesium Sulfate 4 gm/ Premix 100 mls @ 50 mls/hr IV ONETIME ONE Stop: 12/31/19 10:09 Last Admin: 12/31/19 09:27 Dose: 50 mls/hr Documented by: Lactated Ringer's (Ringers, Lactated) 1,000 mls @ 999 mls/hr IV .BOLUS ONE Stop: 12/31/19 09:58 Lorazepam (Ativan) 0 mg IVPUSH Q4H PRN; Protocol PRN Reason: Withdrawal Symptoms Last Admin: 12/30/19 23:04 Dose: 1 mg Documented by: Nicotine (Habitrol) 14 mg TRDERM DAILY [facility] Last Admin: 12/31/19 09:34 Dose: 14 mg Documented by: Ondansetron HCl (Zofran) 4 mg IVPUSH Q4H PRN PRN Reason: Nausea/Vomiting Last Admin: 12/30/19 11:43 Dose: 4 mg Documented by: Pantoprazole Sodium (Protonix Iv) 40 mg IV Q12HR [facility] Last Admin: 12/31/19 09:28 Dose: 40 mg Documented by: Sodium Chloride (Saline Flush) 10 ml FLUSH ASDIRECTED PRN PRN Reason: Keep Vein Open Sodium Chloride (Saline Flush) 2.5 ml FLUSH ASDIRECTED PRN PRN Reason: Keep Vein Open Vancomycin HCl (First-Vancomycin 25 Compounding Kit) 125 mg PO QID [facility] Last Admin: 12/31/19 05:02 Dose: 5 ml Documented by: Discontinued Medications Calcium Carbonate/Glycine (Tums) 1,000 mg PO ONETIME ONE Stop: 12/29/19 09:48 Last Admin: 12/29/19 12:29 Dose: 1,000 mg Documented by: Calcium Carbonate/Glycine (Tums) 1,000 mg PO ONETIME ONE Stop: 12/29/19 12:01 Last Admin: 12/29/19 13:45 Dose: Not Given Documented by: Calcium Carbonate/Glycine (Tums) 1,000 mg PO ONETIME ONE Stop: 12/30/19 07:22 Last Admin: 12/30/19 07:50 Dose: 1,000 mg Documented by: Sodium Chloride (Normal Saline) 1,000 mls @ 999 mls/hr IV BOLUS ONE Stop: 12/28/19 21:35 Last Admin: 12/28/19 20:47 Dose: 999 mls/hr Documented by: Pantoprazole Sodium 80 mg/ (Sodium Chloride) 20 mls @ 420 mls/hr IVPUSH ONETIME ONE Stop: 12/28/19 22:09 Last Admin: 12/28/19 22:49 Dose: 420 mls/hr Documented by: Lactated Ringer's (Ringers, Lactated) 1,000 mls @ 125 mls/hr IV ASDIRECTED [facility] Last Admin: 12/29/19 04:45 Dose: 125 mls/hr Documented by: Lactated Ringer's (Ringers, Lactated) 1,000 mls @ 999 mls/hr IV .BOLUS ONE Stop: 12/28/19 23:47 Last Admin: 12/28/19 23:34 Dose: 999 mls/hr Documented by: Magnesium Sulfate 4 gm/ Premix 100 mls @ 50 mls/hr IV ONETIME ONE Stop: 12/29/19 01:25 Last Admin: 12/29/19 01:23 Dose: 50 mls/hr Documented by: Multivitamins/Minerals 10 ml/Thiamine HCl 100 mg/ Folic Acid 1 mg/ Sodium Chloride 1,011.2 mls @ 125 mls/hr IV ONETIME ONE Stop: 12/29/19 07:32 Last Admin: 12/29/19 00:55 Dose: 125 mls/hr Documented by: Dextrose/Lactated Ringer's (Dextrose 5%-Lactated Ringers) 1,000 mls @ 125 mls/hr IV ASDIRECTED [facility] Last Admin: 12/30/19 10:16 Dose: 125 mls/hr Documented by: Magnesium Sulfate 2 gm/ Premix 50 mls @ 50 mls/hr IV ONETIME ONE Stop: 12/30/19 12:11 Last Admin: 12/30/19 11:43 Dose: 50 mls/hr Documented by: Iopamidol (Isovue-370 (76%)) 100 ml IVPUSH ONETIME ONE Stop: 12/28/19 21:20 Last Admin: 12/28/19 21:20 Dose: 100 ml Documented by: Lorazepam (Ativan) 1 mg IVPUSH ONETIME ONE Stop: 12/28/19 22:13 Last Admin: 12/28/19 22:53 Dose: 1 mg Documented by: Morphine Sulfate (Morphine) 1 mg IVPUSH Q4H PRN PRN Reason: Pain (severe 7-10) Stop: 12/29/19 22:38 Morphine Sulfate (Morphine) 1 mg IVPUSH Q4H PRN PRN Reason: Pain (severe 7-10) Stop: 12/29/19 22:38 Ondansetron HCl (Zofran) 4 mg IVPUSH ONETIME ONE Stop: 12/28/19 22:08 Last Admin: 12/28/19 22:47 Dose: 4 mg Documented by: Potassium Chloride (Klor-Con M20) 40 meq PO ONETIME ONE Stop: 12/29/19 14:22 Last Admin: 12/29/19 16:54 Dose: 40 meq Documented by: Potassium Chloride (Klor-Con M20) 40 meq PO ONETIME ONE Stop: 12/30/19 07:22 Last Admin: 12/30/19 07:50 Dose: 40 meq Documented by: Vancomycin HCl (Vancomycin) 125 mg PO Q6H [facility] Last Admin: 12/29/19 01:23 Dose: 125 mg Documented by: Vancomycin HCl (First-Vancomycin 25 Compounding Kit) 125 mg PO QID [facility] Last Admin: 12/29/19 19:46 Dose: Not Given Documented by: - Exam Quality Assessment: DVT Prophylaxis. No: Supplemental Oxygen General: Alert, Oriented, Cooperative, No Acute Distress HEENT: Pupils Equal, Pupils Reactive Lungs: Clear to Auscultation, Normal Respiratory Effort Cardiovascular: Regular Rate, Regular Rhythm, No Murmurs GI/Abdominal Exam: Normal Bowel Sounds, Soft, Non-Tender Back Exam: Normal Inspection, Full Range of Motion Extremities: Normal Inspection, Normal Range of Motion, Non-Tender, No Pedal Edema Neurological: Other (mild tremors) Psy/Mental Status: Alert, Anxious, Hallucinations, Withdrawal Symptoms Sepsis Event Note - Evaluation Sepsis Screening Result: No Definite Risk - Focused Exam Vital Signs: Vital Signs Temp Pulse Resp BP Pulse Ox 12/31/19 05:03 98.4 F 78 16 120/63 96 12/30/19 23:00 98.7 F 85 18 134/79 97 Date Exam was Performed: 12/31/19 Time Exam was Performed: 11:15 - Problem List & Annotations (1) C. difficile colitis SNOMED Code(s): 781880153 Code(s): A04.72 - ENTEROCOLITIS D/T CLOSTRIDIUM DIFFICILE, NOT SPCF RECUR Status: Acute Current Visit: Yes (2) Transaminitis SNOMED Code(s): 105732786, 254982323 Code(s): R74.0 - NONSPEC ELEV OF LEVELS OF TRANSAMNS & LACTIC ACID DEHYDRGNSE Status: Acute Current Visit: Yes (3) Hypomagnesemia SNOMED Code(s): 155222465 Code(s): E83.42 - HYPOMAGNESEMIA Status: Acute Current Visit: Yes (4) Diarrhea SNOMED Code(s): 61551149 Code(s): R19.7 - DIARRHEA, UNSPECIFIED Status: Acute Current Visit: Yes Qualifiers: Diarrhea type: unspecified type Qualified Code(s): R19.7 - Diarrhea, unspecified (5) Depression SNOMED Code(s): 50016419 Code(s): F32.9 - MAJOR DEPRESSIVE DISORDER, SINGLE EPISODE, UNSPECIFIED Status: Chronic Current Visit: Yes (6) Alcohol intoxication SNOMED Code(s): 07495034 Code(s): F10.129 - ALCOHOL ABUSE WITH INTOXICATION, UNSPECIFIED Status: Chronic Current Visit: Yes Qualifiers: Complication of substance-induced condition: with unspecified complication Qualified Code(s): F10.929 - Alcohol use, unspecified with intoxication, unspecified - Problem List Review Problem List Initiated/Reviewed/Updated: Yes - My Orders Last 24 Hours: My Active Orders 12/31/19 05:53 HEPATITIS PANEL (4) [REF] Routine 12/31/19 Breakfast NPO [Nothing Per Oral Diet] [DIET] 12/31/19 08:10 CIWAA Assessment [RC] Q4H Intake and Output [RC] ASDIRECTED Magnesium Sulfate/Water [Magnesium Sulfate in Water Premix] 4 gm Premix Bag 1 bag IV ONETIME 12/31/19 08:12 Abdomen Ltd [US] Routine 12/31/19 08:58 Lactated Ringers [Ringers, Lactated] 1,000 ml IV .BOLUS 12/31/19 Dinner Soft Diet [DIET] 01/01/20 05:11 CBC WITH AUTO DIFF [HEME] AM COMPREHENSIVE METABOLIC PN,CMP [CHEM] AM MAGNESIUM [CHEM] AM PHOSPHORUS [CHEM] AM 01/02/20 05:11 CBC WITH AUTO DIFF [HEME] AM COMPREHENSIVE METABOLIC PN,CMP [CHEM] AM MAGNESIUM [CHEM] AM PHOSPHORUS [CHEM] AM 01/03/20 05:11 CBC WITH AUTO DIFF [HEME] AM COMPREHENSIVE METABOLIC PN,CMP [CHEM] AM MAGNESIUM [CHEM] AM PHOSPHORUS [CHEM] AM - Plan Plan:: This 39 year old male admitted with alcohol withdrawal symptoms and gastritis 1. Alcohol withdrawal/abuse - Patient on Valium 5mg TID, will decrease to BID - IV Ativan prn CIWAA protocol. - Continue thiamine and folic acid supplementation - Unsteady gait, mild ataxia. No nystagmus or AMS noted. - Thrombocytopenia stable, 60,000 - reports depression and anxiety drive alcohol use. Requesting medication to help with this as outpatient. 2. Generalized weakness - Feels lightheaded with getting up or moving to standing position. Will give 1 L LR bolus this morning and monitor - Consult PT for evaluation and treatment - Slightly unsteady gait 3. Gastritis: - Stool Hemoccult positive. - Patient on IV PPI BID. 4. C. diff colitis: - Stool tested positive for c. diff. - Continue on PO vancomycin. 5. Hypomagnesemia - Replace 4 gm IV today 6. Depression: - Arrange outpatient psychiatry follow up and PCP follow up - Start Prozac 10 mg tonight. VTE prophylaxis: SCD's and ambulation due to ETOH abuse and thrombocytopenia. Dispo: 2-3 days pending improvement
--- NOTE | 2019-12-31 16:05 | US ---
Limited abdominal ultrasound: Multiple real-time images of the upper right abdomen were obtained. Comparison: Prior CT abdomen and pelvis study of 12/28/19. Findings: Liver is diffusely echogenic as compared to the right kidney compatible with severe fatty infiltration. No focal abnormality is appreciated within the liver. Liver is also enlarged. Right kidney shows no hydronephrosis or mass. Right kidney has a length of 10.8 cm. Cyst noted within the right kidney measuring about 1.2 cm. Gallbladder contains no shadowing gallstones. Gallbladder not well distended. No discrete biliary duct dilatation is seen. Visualized portions of the pancreas show no abnormality. Inferior vena cava is patent. Aorta shows no aneurysm. Impression: 1. Gallbladder not well distended. No gallbladder stones or biliary duct dilatation is seen. 2. Severe fatty infiltration within the liver. This finding also causes enlargement of the liver. 3. Small cyst within the right kidney. Diagnostic code #3 This report was dictated in MDT
[2019-12-31] MEDS: Folic Acid 1 MG Tab PO SCH (21:28)
[2020-01-01] MEDS: Vancomycin 25 MG/ML Compounding Kit PO SCH ×4 (05:32→23:51)
[2020-01-01] MEDS: Lactated Ringers 1,000 ML IV SCH (05:32)
[2020-01-01 06:55] LABS: BLOOD UREA NITROGEN,BUN 10 mg/dL (7.0-18.0); CARBON DIOXIDE,CO2 26.4 mmol/L (21.0-32.0); CHLORIDE,CL 104 mmol/L (98-107); GLUCOSE RANDOM 104 mg/dL (74-106); POTASSIUM,K 3.9 mmol/L (3.5-5.1); SODIUM,NA 139 mmol/L (136-148)
[2020-01-01] MEDS: Diazepam 5 MG Tab PO SCH (08:41)
[2020-01-01] MEDS: Nicotine 14 MG/24 Hr Patch TRDERM SCH (08:42)
[2020-01-01] MEDS: Pantoprazole 40 MG Vial IV SCH ×2 (08:42→21:55)
[2020-01-01] MEDS: Thiamine 100 MG in Sodium Chloride 0.9% 100 ML IV SCH (09:21)
--- NOTE | 2020-01-01 11:42 | PCM.PN ---
- General Info Date of Service: 01/01/20 Admission Dx/Problem (Free Text): Admission Diagnosis/Problem Admission Diagnosis/Problem Alcohol withdrawal, cdiff colitis Subjective Update: Feeling a little better today, stools are firming up. No chest pain or SOB. Didn't sleep the best overnight. Abdominal pain better, eating well. Feeling less anxious and less tremulous. Functional Status: Reports: Pain Controlled, Tolerating Diet, Ambulating, Urinating - Review of Systems General: Reports: Fatigue, Malaise HEENT: Reports: No Symptoms Pulmonary: Reports: No Symptoms. Denies: Shortness of Breath Cardiovascular: Reports: No Symptoms. Denies: Chest Pain Gastrointestinal: Reports: No Symptoms. Denies: Abdominal Pain, Nausea, Vomiting Genitourinary: Reports: No Symptoms. Denies: Dysuria, Frequency, Burning Musculoskeletal: Reports: No Symptoms Skin: Reports: No Symptoms Neurological: Reports: No Symptoms Psychiatric: Reports: No Symptoms - Patient Data Vitals - Most Recent: Last Vital Signs Temp 98.5 F 01/01/20 07:15 Pulse 84 01/01/20 07:15 Resp 16 01/01/20 07:15 BP 122/80 01/01/20 07:15 Pulse Ox 98 01/01/20 07:15 Weight - Most Recent: 75.5 kg I&O - Last 24 Hours: Intake & Output 12/31/19 01/01/20 01/01/20 22:59 06:59 14:59 Intake Total 3975 3630 Output Total 1800 1350 Balance 2175 2280 Lab Results Last 24 Hours: Laboratory Results - last 24 hr 12/31/19 01/01/20 01/01/20 Range/Units 18:50 05:29 05:31 WBC 4.98 (4.0-11.0) K/uL RBC 4.19 L (4.50-5.90) M/uL Hgb 12.5 L (13.0-17.0) g/dL Hct 38.3 (38.0-50.0) % MCV 91.4 (80.0-98.0) fL MCH 29.8 (27.0-32.0) pg MCHC 32.6 (31.0-37.0) g/dL RDW Std Deviation 50.8 (28.0-62.0) fl RDW Coeff of Fredis 15 (11.0-15.0) % Plt Count 78 L (150-400) K/uL MPV 12.90 H (7.40-12.00) fL Neut % (Auto) 58.1 (48.0-80.0) % Lymph % (Auto) 30.3 (16.0-40.0) % Willacy % (Auto) 8.8 (0.0-15.0) % Eos % (Auto) 2.4 (0.0-7.0) % Baso % (Auto) 0.4 (0.0-1.5) % Neut # (Auto) 2.9 (1.4-5.7) K/uL Lymph # (Auto) 1.5 (0.6-2.4) K/uL Willacy # (Auto) 0.4 (0.0-0.8) K/uL Eos # (Auto) 0.1 (0.0-0.7) K/uL Baso # (Auto) 0.0 (0.0-0.1) K/uL Nucleated RBC % 0.0 /100WBC Nucleated RBCs # 0 K/uL Sodium (136-148) mmol/L Potassium (3.5-5.1) mmol/L Chloride (98-107) mmol/L Carbon Dioxide (21.0-32.0) mmol/L BUN (7.0-18.0) mg/dL Creatinine (0.8-1.3) mg/dL Est Cr Clr Drug Dosing mL/min Estimated GFR (MDRD) ml/min Glucose (74-106) mg/dL POC Glucose 125 H 102 (60-110) mg/dL Calcium (8.5-10.1) mg/dL Phosphorus (2.6-4.7) mg/dL Magnesium (1.8-2.4) mg/dL Total Bilirubin (0.2-1.0) mg/dL AST (15-37) IU/L ALT (14-63) IU/L Alkaline Phosphatase (46-116) U/L Total Protein (6.4-8.2) g/dL Albumin (3.4-5.0) g/dL Globulin (2.6-4.0) g/dL Albumin/Globulin Ratio (0.9-1.6) 01/01/20 Range/Units 05:31 WBC (4.0-11.0) K/uL RBC (4.50-5.90) M/uL Hgb (13.0-17.0) g/dL Hct (38.0-50.0) % MCV (80.0-98.0) fL MCH (27.0-32.0) pg MCHC (31.0-37.0) g/dL RDW Std Deviation (28.0-62.0) fl RDW Coeff of Fredis (11.0-15.0) % Plt Count (150-400) K/uL MPV (7.40-12.00) fL Neut % (Auto) (48.0-80.0) % Lymph % (Auto) (16.0-40.0) % Will[place] % (Auto) (0.0-15.0) % Eos % (Auto) (0.0-7.0) % Baso % (Auto) (0.0-1.5) % Neut # (Auto) (1.4-5.7) K/uL Lymph # (Auto) (0.6-2.4) K/uL Willacy # (Auto) (0.0-0.8) K/uL Eos # (Auto) (0.0-0.7) K/uL Baso # (Auto) (0.0-0.1) K/uL Nucleated RBC % /100WBC Nucleated RBCs # K/uL Sodium 139 (136-148) mmol/L Potassium 3.9 (3.5-5.1) mmol/L Chloride 104 (98-107) mmol/L Carbon Dioxide 26.4 (21.0-32.0) mmol/L BUN 10 (7.0-18.0) mg/dL Creatinine 0.7 L (0.8-1.3) mg/dL Est Cr Clr Drug Dosing 150.90 mL/min Estimated GFR (MDRD) > 60.0 ml/min Glucose 104 (74-106) mg/dL POC Glucose (60-110) mg/dL Calcium 8.2 L (8.5-10.1) mg/dL Phosphorus 4.8 H (2.6-4.7) mg/dL Magnesium 1.9 (1.8-2.4) mg/dL Total Bilirubin 0.6 (0.2-1.0) mg/dL AST 393 H (15-37) IU/L ALT 338 H (14-63) IU/L Alkaline Phosphatase 126 H (46-116) U/L Total Protein 6.1 L (6.4-8.2) g/dL Albumin 3.2 L (3.4-5.0) g/dL Globulin 2.9 (2.6-4.0) g/dL Albumin/Globulin Ratio 1.1 (0.9-1.6) Hans Results Last 24 Hours: Microbiology 12/28/19 22:34 Aerobic Blood Culture - Preliminary Blood - Venous - Lab Draw NO GROWTH AFTER 3 DAYS Anaerobic Blood Culture - Preliminary NO GROWTH AFTER 3 DAYS 12/28/19 22:20 Aerobic Blood Culture - Preliminary Blood - Venous NO GROWTH AFTER 3 DAYS Anaerobic Blood Culture - Preliminary NO GROWTH AFTER 3 DAYS 12/28/19 20:34 Stool Culture - Preliminary Stool / Feces Shiga Toxin I & II - Final Med Orders - Current: Current Medications Albuterol/Ipratropium (Duoneb 3.0-0.5 Mg/3 Ml) 3 ml NEB Q4HRRT PRN PRN Reason: Shortness Of Breath/wheezing Dextrose/Water (Dextrose 25% In Water) 10 ml IVPUSH ONETIME PRN PRN Reason: Hypoglycemia Last Admin: 12/29/19 01:11 Dose: 10 ml Documented by: Diazepam (Valium.) 5 mg PO DAILY [facility] Fluoxetine HCl (Prozac) 10 mg PO DAILY [facility] Last Admin: 01/01/20 10:01 Dose: 10 mg Documented by: Folic Acid (Folic Acid) 1 mg PO BEDTIME [facility] Last Admin: 12/31/19 21:28 Dose: 1 mg Documented by: Thiamine HCl 100 mg/ Sodium (Chloride) 101 mls @ 202 mls/hr IV DAILY [facility] Last Admin: 01/01/20 09:21 Dose: 202 mls/hr Documented by: Lorazepam (Ativan) 0 mg IVPUSH Q4H PRN; Protocol PRN Reason: Withdrawal Symptoms Last Admin: 12/30/19 23:04 Dose: 1 mg Documented by: Melatonin (Melatonin) 6 mg PO BEDTIME [facility] Nicotine (Habitrol) 14 mg TRDERM DAILY [facility] Last Admin: 01/01/20 08:42 Dose: 14 mg Documented by: Ondansetron HCl (Zofran) 4 mg IVPUSH Q4H PRN PRN Reason: Nausea/Vomiting Last Admin: 12/30/19 11:43 Dose: 4 mg Documented by: Pantoprazole Sodium (Protonix Iv) 40 mg IV Q12HR [facility] Last Admin: 01/01/20 08:42 Dose: 40 mg Documented by: Sodium Chloride (Saline Flush) 10 ml FLUSH ASDIRECTED PRN PRN Reason: Keep Vein Open Sodium Chloride (Saline Flush) 2.5 ml FLUSH ASDIRECTED PRN PRN Reason: Keep Vein Open Vancomycin HCl (First-Vancomycin 25 Compounding Kit) 125 mg PO QID [facility] Last Admin: 01/01/20 11:34 Dose: 5 ml Documented by: Discontinued Medications Calcium Carbonate/Glycine (Tums) 1,000 mg PO ONETIME ONE Stop: 12/29/19 09:48 Last Admin: 12/29/19 12:29 Dose: 1,000 mg Documented by: Calcium Carbonate/Glycine (Tums) 1,000 mg PO ONETIME ONE Stop: 12/29/19 12:01 Last Admin: 12/29/19 13:45 Dose: Not Given Documented by: Calcium Carbonate/Glycine (Tums) 1,000 mg PO ONETIME ONE Stop: 12/30/19 07:22 Last Admin: 12/30/19 07:50 Dose: 1,000 mg Documented by: Diazepam (Valium.) 5 mg PO TID [facility] Last Admin: 12/31/19 05:02 Dose: 5 mg Documented by: Diazepam (Valium.) 5 mg PO BID [facility] Last Admin: 01/01/20 08:41 Dose: 5 mg Documented by: Fluoxetine HCl (Prozac) 10 mg PO BEDTIME [facility] Last Admin: 12/31/19 21:28 Dose: 10 mg Documented by: Sodium Chloride (Normal Saline) 1,000 mls @ 999 mls/hr IV BOLUS ONE Stop: 12/28/19 21:35 Last Admin: 12/28/19 20:47 Dose: 999 mls/hr Documented by: Pantoprazole Sodium 80 mg/ (Sodium Chloride) 20 mls @ 420 mls/hr IVPUSH ONETIME ONE Stop: 12/28/19 22:09 Last Admin: 12/28/19 22:49 Dose: 420 mls/hr Documented by: Lactated Ringer's (Ringers, Lactated) 1,000 mls @ [facility] Last Admin: 12/29/19 04:45 Dose: 125 mls/hr Documented by: Lactated Ringer's (Ringers, Lactated) 1,000 mls @ 999 mls/hr IV .BOLUS ONE Stop: 12/28/19 23:47 Last Admin: 12/28/19 23:34 Dose: 999 mls/hr Documented by: Magnesium Sulfate 4 gm/ Premix 100 mls @ 50 mls/hr IV ONETIME ONE Stop: 12/29/19 01:25 Last Admin: 12/29/19 01:23 Dose: 50 mls/hr Documented by: Multivitamins/Minerals 10 ml/Thiamine HCl 100 mg/ Folic Acid 1 mg/ Sodium Chloride 1,011.2 mls @ 125 mls/hr IV ONETIME ONE Stop: 12/29/19 07:32 Last Admin: 12/29/19 00:55 Dose: 125 mls/hr Documented by: Dextrose/Lactated Ringer's (Dextrose 5%-Lactated Ringers) 1,000 mls @ 125 [facility]ls[facility] Last Admin: 12/30/19 10:16 Dose: 125 mls/hr Documented by: Magnesium Sulfate 2 gm/ Premix 50 mls @ 50 mls/hr IV ONETIME ONE Stop: 12/30/19 12:11 Last Admin: 12/30/19 11:43 Dose: 50 mls/hr Documented by: Lactated Ringer's (Ringers, Lactated) 1,000 mls @ 100 mls/hr IV [facility] Last Admin: 12/31/19 05:02 Dose: 100 mls/hr Documented by: Magnesium Sulfate 4 gm/ Premix 100 mls @ 50 mls/hr IV ONETIME ONE Stop: 12/31/19 10:09 Last Admin: 12/31/19 09:27 Dose: 50 mls/hr Documented by: Lactated Ringer's (Ringers, Lactated) 1,000 mls @ 999 mls/hr IV .BOLUS ONE Stop: 12/31/19 09:58 Last Admin: 12/31/19 09:43 Dose: 999 mls/hr Documented by: Lactated Ringer's (Ringers, Lactated) 1,000 mls @ 125 mls/hr IV Q8H [facility] Last Admin: 01/01/20 05:32 Dose: 125 mls/hr Documented by: Iopamidol (Isovue-370 (76%)) 100 ml IVPUSH ONETIME ONE Stop: 12/28/19 21:20 Last Admin: 12/28/19 21:20 Dose: 100 ml Documented by: Lorazepam (Ativan) 1 mg IVPUSH ONETIME ONE Stop: 12/28/19 22:13 Last Admin: 12/28/19 22:53 Dose: 1 mg Documented by: Morphine Sulfate (Morphine) 1 mg IVPUSH Q4H PRN PRN Reason: Pain (severe 7-10) Stop: 12/29/19 22:38 Morphine Sulfate (Morphine) 1 mg IVPUSH Q4H PRN PRN Reason: Pain (severe 7-10) Stop: 12/29/19 22:38 Ondansetron HCl (Zofran) 4 mg IVPUSH ONETIME ONE Stop: 12/28/19 22:08 Last Admin: 12/28/19 22:47 Dose: 4 mg Documented by: Potassium Chloride (Klor-Con M20) 40 meq PO ONETIME ONE Stop: 12/29/19 14:22 Last Admin: 12/29/19 16:54 Dose: 40 meq Documented by: Potassium Chloride (Klor-Con M20) 40 meq PO ONETIME ONE Stop: 12/30/19 07:22 Last Admin: 12/30/19 07:50 Dose: 40 meq Documented by: Vancomycin HCl (Vancomycin) 125 mg PO Q6H [facility] Last Admin: 12/29/19 01:23 Dose: 125 mg Documented by: Vancomycin HCl (First-Vancomycin 25 Compounding Kit) 125 mg PO QID [facility] Last Admin: 12/29/19 19:46 Dose: Not Given Documented by: - Exam General: Alert, Oriented, Cooperative, No Acute Distress Lungs: Clear to Auscultation, Normal Respiratory Effort Cardiovascular: Regular Rate, Regular Rhythm GI/Abdominal Exam: Normal Bowel Sounds, Soft, Non-Tender, No Distention Extremities: Normal Inspection, Normal Range of Motion, Non-Tender, No Pedal Edema Neurological: No New Focal Deficit Psy/Mental Status: Alert, Normal Affect, Normal Mood Sepsis Event Note - Evaluation Sepsis Screening Result: No Definite Risk - Focused Exam Vital Signs: Vital Signs Temp Pulse Resp BP Pulse Ox 01/01/20 07:15 98.5 F 84 16 122/80 98 01/01/20 05:30 97.7 F 70 16 117/78 97 Date Exam was Performed: 01/01/20 Time Exam was Performed: 11:35 - Problem List & Annotations (1) C. difficile colitis SNOMED Code(s): 842082400 Code(s): A04.72 - ENTEROCOLITIS D/T CLOSTRIDIUM DIFFICILE, NOT SPCF RECUR Status: Acute Current Visit: Yes (2) Transaminitis SNOMED Code(s): 821156056, 843261219 Code(s): R74.0 - NONSPEC ELEV OF LEVELS OF TRANSAMNS & LACTIC ACID DEHYDRGNSE Status: Acute Current Visit: Yes (3) Hypomagnesemia SNOMED Code(s): 638535067 Code(s): E83.42 - HYPOMAGNESEMIA Status: Acute Current Visit: Yes (4) Diarrhea SNOMED Code(s): 72966843 Code(s): R19.7 - DIARRHEA, UNSPECIFIED Status: Acute Current Visit: Yes Qualifiers: Diarrhea type: unspecified type Qualified Code(s): R19.7 - Diarrhea, unspecified (5) Depression SNOMED Code(s): 95977437 Code(s): F32.9 - MAJOR DEPRESSIVE DISORDER, SINGLE EPISODE, UNSPECIFIED Status: Chronic Current Visit: Yes (6) Alcohol intoxication SNOMED Code(s): 02800525 Code(s): F10.129 - ALCOHOL ABUSE WITH INTOXICATION, UNSPECIFIED Status: Chronic Current Visit: Yes Qualifiers: Complication of substance-induced condition: with unspecified complication Qualified Code(s): F10.929 - Alcohol use, unspecified with intoxication, unspecified - Problem List Review Problem List Initiated/Reviewed/Updated: Yes - My Orders Last 24 Hours: My Active Orders 12/31/19 Dinner Soft Diet [DIET] 01/01/20 09:30 FLUoxetine [PROzac] 10 mg PO DAILY 01/01/20 21:00 Melatonin 6 mg PO BEDTIME 01/02/20 05:11 CBC WITH AUTO DIFF [HEME] AM COMPREHENSIVE METABOLIC PN,CMP [CHEM] AM MAGNESIUM [CHEM] AM PHOSPHORUS [CHEM] AM 01/02/20 09:00 diazePAM [Valium] 5 mg PO DAILY 01/03/20 05:11 CBC WITH AUTO DIFF [HEME] AM COMPREHENSIVE METABOLIC PN,CMP [CHEM] AM MAGNESIUM [CHEM] AM PHOSPHORUS [CHEM] AM - Plan Plan:: This 39 year old male admitted with alcohol withdrawal symptoms and gastritis 1. Alcohol withdrawal/abuse - Patient on Valium 5mg BID, decrease to daily. - IV Ativan prn CIWAA protocol. - Continue thiamine and folic acid supplementation - Thrombocytopenia stable, 2. Generalized weakness - Encourage ambulation - Consult PT for evaluation and treatment - Slightly unsteady gait 3. Gastritis: - Stool Hemoccult positive. - Patient on IV PPI BID. 4. C. diff colitis: - Stools improving. - Stool tested positive for c. diff. - Continue on PO vancomycin. 5. Depression: - Arrange outpatient psychiatry follow up and PCP follow up - Prozac 10 mg daily. VTE prophylaxis: SCD's and ambulation due to ETOH abuse and thrombocytopenia. Dispo: 2-3 days pending improvement
[2020-01-01] MEDS: LORazepam 2 MG/ML SDV IVPUSH PRN ×2 (16:18→22:09)
[2020-01-01] MEDS: Folic Acid 1 MG Tab PO SCH (21:54)
[2020-01-01] MEDS: Melatonin 3 MG Tab PO SCH (21:54)
[2020-01-02] MEDS: Vancomycin 25 MG/ML Compounding Kit PO SCH ×3 (05:50→18:19)
[2020-01-02 06:31] LABS: BLOOD UREA NITROGEN,BUN 12 mg/dL (7.0-18.0); CARBON DIOXIDE,CO2 29.1 mmol/L (21.0-32.0); CHLORIDE,CL 103 mmol/L (98-107); GLUCOSE RANDOM 110 mg/dL (74-106); SODIUM,NA 138 mmol/L (136-148)
[2020-01-02] MEDS ORDERED: Magnesium Sulfate/Water 2 GM in Premix Bag 1 BAG IV ONE (07:47)
[2020-01-02] MEDS: Pantoprazole 40 MG Vial IV SCH (08:32)
[2020-01-02] MEDS: Nicotine 14 MG/24 Hr Patch TRDERM SCH (08:40)
[2020-01-02] MEDS ORDERED: Diazepam 5 MG Tab PO SCH (09:00)
[2020-01-02] MEDS: Thiamine 100 MG in Sodium Chloride 0.9% 100 ML IV SCH (09:57)
[2020-01-02] MEDS: Lactated Ringers 1,000 ML IV SCH ×2 (12:25→23:58)
--- NOTE | 2020-01-02 12:30 | PCM.PN ---
<Alber Araiza M - Last Filed: 01/02/20 12:40> - General Info Date of Service: 01/02/20 Subjective Update: Reports mood better this morning and had 2 bowel movements yesterday. Tolerating oral diet well. Denies any fevers, chills, nausea, vomiting or abdominal pain. - Patient Data Vitals - Most Recent: Last Vital Signs Temp 36.6 C 01/02/20 11:00 Pulse 100 01/02/20 11:00 Resp 16 01/02/20 11:00 BP 128/78 01/02/20 11:00 Pulse Ox 95 01/02/20 11:00 Weight - Most Recent: 75.5 kg I&O - Last 24 Hours: Intake & Output 01/01/20 01/02/20 01/02/20 22:59 06:59 14:59 Intake Total 2500 1200 Output Total 900 1650 Balance 1600 -450 Lab Results Last 24 Hours: Laboratory Results - last 24 hr 12/31/19 01/01/20 01/02/20 Range/Units 05:53 19:01 05:18 WBC 5.24 (4.0-11.0) K/uL RBC 4.29 L (4.50-5.90) M/uL Hgb 12.9 L (13.0-17.0) g/dL Hct 39.6 (38.0-50.0) % MCV 92.3 (80.0-98.0) fL MCH 30.1 (27.0-32.0) pg MCHC 32.6 (31.0-37.0) g/dL RDW Std Deviation 51.5 (28.0-62.0) fl RDW Coeff of Fredis 15 (11.0-15.0) % Plt Count 135 L (150-400) K/uL MPV 12.40 H (7.40-12.00) fL Neut % (Auto) 52.4 (48.0-80.0) % Lymph % (Auto) 29.8 (16.0-40.0) % [place] % (Auto) 15.1 H (0.0-15.0) % Eos % (Auto) 2.1 (0.0-7.0) % Baso % (Auto) 0.6 (0.0-1.5) % Neut # (Auto) 2.8 (1.4-5.7) K/uL Lymph # (Auto) 1.6 (0.6-2.4) K/uL [place] # (Auto) 0.8 (0.0-0.8) K/uL Eos # (Auto) 0.1 (0.0-0.7) K/uL Baso # (Auto) 0.0 (0.0-0.1) K/uL Nucleated RBC % 0.0 /100WBC Nucleated RBCs # 0 K/uL Sodium (136-148) mmol/L Potassium (3.5-5.1) mmol/L Chloride (98-107) mmol/L Carbon Dioxide (21.0-32.0) mmol/L BUN (7.0-18.0) mg/dL Creatinine (0.8-1.3) mg/dL Est Cr Clr Drug Dosing mL/min Estimated GFR (MDRD) ml/min Glucose (74-106) mg/dL POC Glucose 109 (60-110) mg/dL Calcium (8.5-10.1) mg/dL Phosphorus (2.6-4.7) mg/dL Magnesium (1.8-2.4) mg/dL Total Bilirubin (0.2-1.0) mg/dL AST (15-37) IU/L ALT (14-63) IU/L Alkaline Phosphatase (46-116) U/L Total Protein (6.4-8.2) g/dL Albumin (3.4-5.0) g/dL Globulin (2.6-4.0) g/dL Albumin/Globulin Ratio (0.9-1.6) Hepatitis A IgM Ab Negative (Negative) Hep Bs Antigen Negative (Negative) Hep B Core IgM Ab Negative (Negative) Hepatitis C Antibody <0.1 (0.0-0.9) s/co ratio 01/02/20 01/02/20 01/02/20 Range/Units 05:18 06:29 12:03 WBC (4.0-11.0) K/uL RBC (4.50-5.90) M/uL Hgb (13.0-17.0) g/dL Hct (38.0-50.0) % MCV (80.0-98.0) fL MCH (27.0-32.0) pg MCHC (31.0-37.0) g/dL RDW Std Deviation (28.0-62.0) fl RDW Coeff of Fredis (11.0-15.0) % Plt Count (150-400) K/uL MPV (7.40-12.00) fL Neut % (Auto) (48.0-80.0) % Lymph % (Auto) (16.0-40.0) % [place] % (Auto) (0.0-15.0) % Eos % (Auto) (0.0-7.0) % Baso % (Auto) (0.0-1.5) % Neut # (Auto) (1.4-5.7) K/uL Lymph # (Auto) (0.6-2.4) K/uL [place] # (Auto) (0.0-0.8) K/uL Eos # (Auto) (0.0-0.7) K/uL Baso # (Auto) (0.0-0.1) K/uL Nucleated RBC % /100WBC Nucleated RBCs # K/uL Sodium 138 (136-148) mmol/L Potassium 4.0 (3.5-5.1) mmol/L Chloride 103 (98-107) mmol/L Carbon Dioxide 29.1 (21.0-32.0) mmol/L BUN 12 (7.0-18.0) mg/dL Creatinine 0.8 (0.8-1.3) mg/dL Est Cr Clr Drug Dosing 132.04 mL/min Estimated GFR (MDRD) > 60.0 ml/min Glucose 110 H (74-106) mg/dL POC Glucose 102 105 (60-110) mg/dL Calcium 8.5 (8.5-10.1) mg/dL Phosphorus 5.3 H (2.6-4.7) mg/dL Magnesium 1.6 L (1.8-2.4) mg/dL Total Bilirubin 0.4 (0.2-1.0) mg/dL AST 502 H (15-37) IU/L ALT 520 H (14-63) IU/L Alkaline Phosphatase 141 H (46-116) U/L Total Protein 6.3 L (6.4-8.2) g/dL Albumin 3.2 L (3.4-5.0) g/dL Globulin 3.1 (2.6-4.0) g/dL Albumin/Globulin Ratio 1.0 (0.9-1.6) Hepatitis A IgM Ab (Negative) Hep Bs Antigen (Negative) Hep B Core IgM Ab (Negative) Hepatitis C Antibody (0.0-0.9) s/co ratio Hans Results Last 24 Hours: Microbiology 12/28/19 20:34 Stool Culture - Final Stool / Feces Shiga Toxin I & II - Final 12/28/19 22:34 Aerobic Blood Culture - Preliminary Blood - Venous - Lab Draw NO GROWTH AFTER 4 DAYS Anaerobic Blood Culture - Preliminary NO GROWTH AFTER 4 DAYS 12/28/19 22:20 Aerobic Blood Culture - Preliminary Blood - Venous NO GROWTH AFTER 4 DAYS Anaerobic Blood Culture - Preliminary NO GROWTH AFTER 4 DAYS Med Orders - Current: Current Medications Albuterol/Ipratropium (Duoneb 3.0-0.5 Mg/3 Ml) 3 ml NEB Q4HRRT PRN PRN Reason: Shortness Of Breath/wheezing Dextrose/Water (Dextrose 25% In Water) 10 ml IVPUSH ONETIME PRN PRN Reason: Hypoglycemia Last Admin: 12/29/19 01:11 Dose: 10 ml Documented by: Diazepam (Valium.) 2.5 mg PO DAILY [facility] Fluoxetine HCl (Prozac) 10 mg PO DAILY [facility] Last Admin: 01/02/20 08:38 Dose: 10 mg Documented by: Folic Acid (Folic Acid) 1 mg PO BEDTIME [facility] Last Admin: 01/01/20 21:54 Dose: 1 mg Documented by: Thiamine HCl 100 mg/ Sodium (Chloride) 101 mls @ 202 mls/hr IV DAILY [facility] Last Admin: 01/02/20 09:57 Dose: 202 mls/hr Documented by: Lactated Ringer's (Ringers, Lactated) 1,000 mls @ 100 mls/hr IV ASDIRECTED [facility] Last Admin: 01/02/20 12:25 Dose: 100 mls/hr Documented by: Lorazepam (Ativan) 0 mg IVPUSH Q4H PRN; Protocol PRN Reason: Withdrawal Symptoms Last Admin: 01/01/20 22:09 Dose: 1 mg Documented by: Melatonin (Melatonin) 6 mg PO BEDTIME [facility] Last Admin: 01/01/20 21:54 Dose: 6 mg Documented by: Nicotine (Habitrol) 14 mg TRDERM DAILY [facility] Last Admin: 01/02/20 08:40 Dose: 14 mg Documented by: Ondansetron HCl (Zofran) 4 mg IVPUSH Q4H PRN PRN Reason: Nausea/Vomiting Last Admin: 12/30/19 11:43 Dose: 4 mg Documented by: Pantoprazole Sodium (Protonix Iv) 40 mg IV Q12HR [facility] Last Admin: 01/02/20 08:32 Dose: 40 mg Documented by: Sodium Chloride (Saline Flush) 10 ml FLUSH ASDIRECTED PRN PRN Reason: Keep Vein Open Sodium Chloride (Saline Flush) 2.5 ml FLUSH ASDIRECTED PRN PRN Reason: Keep Vein Open Vancomycin HCl (First-Vancomycin 25 Compounding Kit) 125 mg PO QID [facility] Last Admin: 01/02/20 12:24 Dose: 5 ml Documented by: Discontinued Medications Calcium Carbonate/Glycine (Tums) 1,000 mg PO ONETIME ONE Stop: 12/29/19 09:48 Last Admin: 12/29/19 12:29 Dose: 1,000 mg Documented by: Calcium Carbonate/Glycine (Tums) 1,000 mg PO ONETIME ONE Stop: 12/29/19 12:01 Last Admin: 12/29/19 13:45 Dose: Not Given Documented by: Calcium Carbonate/Glycine (Tums) 1,000 mg PO ONETIME ONE Stop: 12/30/19 07:22 Last Admin: 12/30/19 07:50 Dose: 1,000 mg Documented by: Diazepam (Valium.) 5 mg PO TID [facility] Last Admin: 12/31/19 05:02 Dose: 5 mg Documented by: Diazepam (Valium.) 5 mg PO BID [facility] Last Admin: 01/01/20 08:41 Dose: 5 mg Documented by: Diazepam (Valium.) 5 mg PO DAILY [facility] Last Admin: 01/02/20 08:38 Dose: 5 mg Documented by: Fluoxetine HCl (Prozac) 10 mg PO BEDTIME [facility] Last Admin: 12/31/19 21:28 Dose: 10 mg Documented by: Sodium Chloride (Normal Saline) 1,000 mls @ 999 mls/hr IV BOLUS ONE Stop: 12/28/19 21:35 Last Admin: 12/28/19 20:47 Dose: 999 mls/hr Documented by: Pantoprazole Sodium 80 mg/ (Sodium Chloride) 20 mls @ 420 mls/hr IVPUSH ONETIME ONE Stop: 12/28/19 22:09 Last Admin: 12/28/19 22:49 Dose: 420 mls/hr Documented by: Lactated Ringer's (Ringers, Lactated) 1,000 [facility] Admin: 12/29/19 04:45 Dose: 125 mls/hr Documented by: Lactated Ringer's (Ringers, Lactated) 1,000 mls @ 999 mls/hr IV .BOLUS ONE Stop: 12/28/19 23:47 Last Admin: 12/28/19 23:34 Dose: 999 mls/hr Documented by: Magnesium Sulfate 4 gm/ Premix 100 mls @ 50 mls/hr IV ONETIME ONE Stop: 12/29/19 01:25 Last Admin: 12/29/19 01:23 Dose: 50 mls/hr Documented by: Multivitamins/Minerals 10 ml/Thiamine HCl 100 mg/ Folic Acid 1 mg/ Sodium Chloride 1,011.2 mls @ 125 mls/hr IV ONETIME ONE Stop: 12/29/19 07:32 Last Admin: 12/29/19 00:55 Dose: 125 mls/hr Documented by: Dextrose/Lactated Ringer's (Dextrose 5%-Lactated Ringers) 1,000 mls [facility] Last Admin: 12/30/19 10:16 Dose: 125 mls/hr Documented by: Magnesium Sulfate 2 gm/ Premix 50 mls @ 50 mls/hr IV ONETIME ONE Stop: 12/30/19 12:11 Last Admin: 12/30/19 11:43 Dose: 50 mls/hr Documented by: Lactated Ringer's (Ringers, Lactated) 1,000 mls [facility] Last Admin: 12/31/19 05:02 Dose: 100 mls/hr Documented by: Magnesium Sulfate 4 gm/ Premix 100 mls @ 50 mls/hr IV ONETIME ONE Stop: 12/31/19 10:09 Last Admin: 12/31/19 09:27 Dose: 50 mls/hr Documented by: Lactated Ringer's (Ringers, Lactated) 1,000 mls @ 999 mls/hr IV .BOLUS ONE Stop: 12/31/19 09:58 Last Admin: 12/31/19 09:43 Dose: 999 mls/hr Documented by: Lactated Ringer's (Ringers, Lactated) 1,000 mls @ 125 mls/hr IV Q8H [facility] Last Admin: 01/01/20 05:32 Dose: 125 mls/hr Documented by: Magnesium Sulfate 2 gm/ Premix 50 mls @ 50 mls/hr IV ONETIME ONE Stop: 01/02/20 08:46 Last Admin: 01/02/20 08:43 Dose: 50 mls/hr Documented by: Iopamidol (Isovue-370 (76%)) 100 ml IVPUSH ONETIME ONE Stop: 12/28/19 21:20 Last Admin: 12/28/19 21:20 Dose: 100 ml Documented by: Lorazepam (Ativan) 1 mg IVPUSH ONETIME ONE Stop: 12/28/19 22:13 Last Admin: 12/28/19 22:53 Dose: 1 mg Documented by: Morphine Sulfate (Morphine) 1 mg IVPUSH Q4H PRN PRN Reason: Pain (severe 7-10) Stop: 12/29/19 22:38 Morphine Sulfate (Morphine) 1 mg IVPUSH Q4H PRN PRN Reason: Pain (severe 7-10) Stop: 12/29/19 22:38 Ondansetron HCl (Zofran) 4 mg IVPUSH ONETIME ONE Stop: 12/28/19 22:08 Last Admin: 12/28/19 22:47 Dose: 4 mg Documented by: Potassium Chloride (Klor-Con M20) 40 meq PO ONETIME ONE Stop: 12/29/19 14:22 Last Admin: 12/29/19 16:54 Dose: 40 meq Documented by: Potassium Chloride (Klor-Con M20) 40 meq PO ONETIME ONE Stop: 12/30/19 07:22 Last Admin: 12/30/19 07:50 Dose: 40 meq Documented by: Vancomycin HCl (Vancomycin) 125 mg PO Q6H [facility] Last Admin: 12/29/19 01:23 Dose: 125 mg Documented by: Vancomycin HCl (First-Vancomycin 25 Compounding Kit) 125 mg PO QID [facility] Last Admin: 12/29/19 19:46 Dose: Not Given Documented by: - Exam General: Alert, Oriented, Cooperative, No Acute Distress Lungs: Clear to Auscultation, Normal Respiratory Effort Cardiovascular: Regular Rate, Regular Rhythm GI/Abdominal Exam: Normal Bowel Sounds, Soft, Non-Tender, No Distention Extremities: Normal Inspection, No Pedal Edema Sepsis Event Note - Evaluation Sepsis Screening Result: No Definite Risk - Focused Exam Vital Signs: Vital Signs Temp Pulse Resp BP BP Pulse Ox 01/02/20 11:00 36.6 C 100 16 128/78 95 01/02/20 07:43 36.4 C 75 19 101/69 98 01/02/20 04:22 36.9 C 81 16 108/60 97 Date Exam was Performed: 01/02/20 Time Exam was Performed: 12:40 - Problem List Review Problem List Initiated/Reviewed/Updated: Yes - My Orders Last 24 Hours: My Active Orders 01/02/20 11:30 Lactated Ringers [Ringers, Lactated] 1,000 ml IV ASDIRECTED 01/02/20 11:35 INR,PT,PROTHROMBIN TIME [COAG] Routine 01/03/20 09:00 diazePAM [Valium] 2.5 mg PO DAILY - Plan Plan:: Assessment and Plan: 1. Alcohol withdrawal: - Will change to Valium 2.5 mg daily. Continue thiamine, folic acid and IV Ativan prn CIWAA protocol. - Liver enzymes slightly increasing today, will start IV LR's 100 cc/hr and continue to monitor. 2. Generalized weakness: - Continue to encourage ambulation. Patient reports walking around yesterday without any difficulty. 3. Gastritis: - Stool Hemoccult positive. Continue IV PPI BID. 4. C. diff colitis, improving: - Continue PO vancomycin. 5. Hypomagnesemia: - Replete with IV mag sulfate and recheck with AM labs. 6. Depression: - Continue Prozac 10 mg qd. Patient will require outpatient psych follow-up. 7. DVT prophylaxis: SCD's and ambulation secondary to ETOH abuse and thrombocytopenia. <Jose Wilson - Last Filed: 01/04/20 19:12> - General Info Subjective Update: I have seen and evaluated the patient and agree with the residents note unless specified in my note - Patient Data Vitals - Most Recent: Last Vital Signs Temp 36.8 C 01/03/20 08:10 Pulse 87 01/03/20 08:10 Resp 18 01/03/20 08:10 BP 123/82 01/03/20 08:10 Pulse Ox 98 01/03/20 08:10 Med Orders - Current: Current Medications Discontinued Medications Albuterol/Ipratropium (Duoneb 3.0-0.5 Mg/3 Ml) 3 ml NEB Q4HRRT PRN PRN Reason: Shortness Of Breath/wheezing Calcium Carbonate/Glycine (Tums) 1,000 mg PO ONETIME ONE Stop: 12/29/19 09:48 Last Admin: 12/29/19 12:29 Dose: 1,000 mg Documented by: Calcium Carbonate/Glycine (Tums) 1,000 mg PO ONETIME ONE Stop: 12/29/19 12:01 Last Admin: 12/29/19 13:45 Dose: Not Given Documented by: Calcium Carbonate/Glycine (Tums) 1,000 mg PO ONETIME ONE Stop: 12/30/19 07:22 Last Admin: 12/30/19 07:50 Dose: 1,000 mg Documented by: Dextrose/Water (Dextrose 25% In Water) 10 ml IVPUSH ONETIME PRN PRN Reason: Hypoglycemia Last Admin: 12/29/19 01:11 Dose: 10 ml Documented by: Diazepam (Valium.) 5 mg PO TID [facility] Last Admin: 12/31/19 05:02 Dose: 5 mg Documented by: Diazepam (Valium.) 5 mg PO BID [facility] Last Admin: 01/01/20 08:41 Dose: 5 mg Documented by: Diazepam (Valium.) 5 mg PO DAILY [facility] Last Admin: 01/02/20 08:38 Dose: 5 mg Documented by: Diazepam (Valium.) 2.5 mg PO DAILY [facility] Last Admin: 01/03/20 08:49 Dose: 2.5 mg Documented by: Fluoxetine HCl (Prozac) 10 mg PO BEDTIME [facility] Last Admin: 12/31/19 21:28 Dose: 10 mg Documented by: Fluoxetine HCl (Prozac) 10 mg PO DAILY [facility] Last Admin: 01/03/20 08:46 Dose: 10 mg Documented by: Folic Acid (Folic Acid) 1 mg PO BEDTIME [facility] Last Admin: 01/02/20 21:51 Dose: 1 mg Documented by: Sodium Chloride (Normal Saline) 1,000 mls @ 999 mls/hr IV BOLUS ONE Stop: 12/28/19 21:35 Last Admin: 12/28/19 20:47 Dose: 999 mls/hr Documented by: Pantoprazole Sodium 80 mg/ (Sodium Chloride) 20 mls @ 420 mls/hr IVPUSH ONETIME ONE Stop: 12/28/19 22:09 Last Admin: 12/28/19 22:49 Dose: 420 mls/hr Documented by: Lactated Ringer's (Ringers, Lactated) 1,000 mls @ 125 mls/hr IV ASDIRECTED [facility] Last Admin: 12/29/19 04:45 Dose: 125 mls/hr Documented by: Lactated Ringer's (Ringers, Lactated) 1,000 mls @ 999 mls/hr IV .BOLUS ONE Stop: 12/28/19 23:47 Last Admin: 12/28/19 23:34 Dose: 999 mls/hr Documented by: Magnesium Sulfate 4 gm/ Premix 100 mls @ 50 mls/hr IV ONETIME ONE Stop: 12/29/19 01:25 Last Admin: 12/29/19 01:23 Dose: 50 mls/hr Documented by: Multivitamins/Minerals 10 ml/Thiamine HCl 100 mg/ Folic Acid 1 mg/ Sodium Chloride 1,011.2 mls @ 125 mls/hr IV ONETIME ONE Stop: 12/29/19 07:32 Last Admin: 12/29/19 00:55 Dose: 125 mls/hr Documented by: Thiamine HCl 100 mg/ Sodium (Chloride) 101 mls @ 202 mls/hr IV DAILY [facility] Last Admin: 01/03/20 09:17 Dose: 202 mls/hr Documented by: Dextrose/Lactated Ringer's (Dextrose 5%-Lactated Ringers) 1,000 mls @ 125 mls/hr IV ASDIRECTED [facility] Last Admin: 12/30/19 10:16 Dose: 125 mls/hr Documented by: Magnesium Sulfate 2 gm/ Premix 50 mls @ 50 mls/hr IV ONETIME ONE Stop: 12/30/19 12:11 Last Admin: 12/30/19 11:43 Dose: 50 mls/hr Documented by: Lactated Ringer's (Ringers, Lactated) 1,000 mls @ 100 mls/hr IV ASDIRECTED [facility] Last Admin: 12/31/19 05:02 Dose: 100 mls/hr Documented by: Magnesium Sulfate 4 gm/ Premix 100 mls @ 50 mls/hr IV ONETIME ONE Stop: 12/31/19 10:09 Last Admin: 12/31/19 09:27 Dose: 50 mls/hr Documented by: Lactated Ringer's (Ringers, Lactated) 1,000 mls @ 999 mls/hr IV .BOLUS ONE Stop: 12/31/19 09:58 Last Admin: 12/31/19 09:43 Dose: 999 mls/hr Documented by: Lactated Ringer's (Ringers, Lactated) 1,000 mls @ 125 mls/hr IV Q8H [facility] Last Admin: 01/01/20 05:32 Dose: 125 mls/hr Documented by: Magnesium Sulfate 2 gm/ Premix 50 mls @ 50 mls/hr IV ONETIME ONE Stop: 01/02/20 08:46 Last Admin: 01/02/20 08:43 Dose: 50 mls/hr Documented by: Lactated Ringer's (Ringers, Lactated) 1,000 mls @ 100 mls/hr IV ASDIRECTED [facility] Last Admin: 01/02/20 23:58 Dose: 100 mls/hr Documented by: Pantoprazole Sodium 40 mg/ (Sodium Chloride) 10 mls @ 300 mls/hr IV Q12H [facility] Last Admin: 01/03/20 08:50 Dose: 300 mls/hr Documented by: Iopamidol (Isovue-370 (76%)) 100 ml IVPUSH ONETIME ONE Stop: 12/28/19 21:20 Last Admin: 12/28/19 21:20 Dose: 100 ml Documented by: Lorazepam (Ativan) 1 mg IVPUSH ONETIME ONE Stop: 12/28/19 22:13 Last Admin: 12/28/19 22:53 Dose: 1 mg Documented by: Lorazepam (Ativan) 0 mg IVPUSH Q4H PRN; Protocol PRN Reason: Withdrawal Symptoms Last Admin: 01/01/20 22:09 Dose: 1 mg Documented by: Lorazepam (Ativan) 1 mg IVPUSH Q4H PRN PRN Reason: Anxiety Melatonin (Melatonin) 6 mg PO BEDTIME [facility] Last Admin: 01/02/20 21:50 Dose: 6 mg Documented by: Morphine Sulfate (Morphine) 1 mg IVPUSH Q4H PRN PRN Reason: Pain (severe 7-10) Stop: 12/29/19 22:38 Morphine Sulfate (Morphine) 1 mg IVPUSH Q4H PRN PRN Reason: Pain (severe 7-10) Stop: 12/29/19 22:38 Nicotine (Habitrol) 14 mg TRDERM DAILY [facility] Last Admin: 01/03/20 08:46 Dose: 14 mg Documented by: Ondansetron HCl (Zofran) 4 mg IVPUSH ONETIME ONE Stop: 12/28/19 22:08 Last Admin: 12/28/19 22:47 Dose: 4 mg Documented by: Ondansetron HCl (Zofran) 4 mg IVPUSH Q4H PRN PRN Reason: Nausea/Vomiting Last Admin: 12/30/19 11:43 Dose: 4 mg Documented by: Pantoprazole Sodium (Protonix Iv) 40 mg IV Q12HR [facility] Last Admin: 01/02/20 08:32 Dose: 40 mg Documented by: Potassium Chloride (Klor-Con M20) 40 meq PO ONETIME ONE Stop: 12/29/19 14:22 Last Admin: 12/29/19 16:54 Dose: 40 meq Documented by: Potassium Chloride (Klor-Con M20) 40 meq PO ONETIME ONE Stop: 12/30/19 07:22 Last Admin: 12/30/19 07:50 Dose: 40 meq Documented by: Sodium Chloride (Saline Flush) 10 ml FLUSH ASDIRECTED PRN PRN Reason: Keep Vein Open Sodium Chloride (Saline Flush) 2.5 ml FLUSH ASDIRECTED PRN PRN Reason: Keep Vein Open Vancomycin HCl (Vancomycin) 125 mg PO Q6H [facility] Last Admin: 12/29/19 01:23 Dose: 125 mg Documented by: Vancomycin HCl (First-Vancomycin 25 Compounding Kit) 125 mg PO QID [facility] Last Admin: 12/29/19 19:46 Dose: Not Given Documented by: Vancomycin HCl (First-Vancomycin 25 Compounding Kit) 125 mg PO QID [facility] Last Admin: 01/03/20 12:27 Dose: 5 ml Documented by: Sepsis Event Note - Focused Exam Date Exam was Performed: 01/04/20 Time Exam was Performed: 19:12 - Problem List & Annotations (1) Transaminitis SNOMED Code(s): 084455819, 062252167 Code(s): R74.0 - NONSPEC ELEV OF LEVELS OF TRANSAMNS & LACTIC ACID DEHYDRGNSE Status: Acute
[2020-01-02] MEDS ORDERED: LORazepam 2 MG/ML SDV IVPUSH PRN (19:09)
[2020-01-02] MEDS: Melatonin 3 MG Tab PO SCH (21:50)
[2020-01-02] MEDS: Pantoprazole 40 MG in Sodium Chloride 0.9% 10 ML IV SCH (21:51)
[2020-01-02] MEDS: Folic Acid 1 MG Tab PO SCH (21:51)
[2020-01-03] MEDS: Vancomycin 25 MG/ML Compounding Kit PO SCH ×3 (00:53→12:27)
[2020-01-03 06:47] LABS: BLOOD UREA NITROGEN,BUN 15 mg/dL (7.0-18.0); CARBON DIOXIDE,CO2 26.7 mmol/L (21.0-32.0); CHLORIDE,CL 104 mmol/L (98-107); GLUCOSE RANDOM 105 mg/dL (74-106); SODIUM,NA 137 mmol/L (136-148)
[2020-01-03] MEDS: Nicotine 14 MG/24 Hr Patch TRDERM SCH (08:46)
[2020-01-03] MEDS: Pantoprazole 40 MG in Sodium Chloride 0.9% 10 ML IV SCH (08:50)
[2020-01-03] MEDS ORDERED: Diazepam 5 MG Tab PO SCH (09:00)
[2020-01-03 09:10] VITALS: BP 123/82; PULSE 87
[2020-01-03] MEDS: Thiamine 100 MG in Sodium Chloride 0.9% 100 ML IV SCH (09:17)
--- NOTE | 2020-01-03 10:52 | PCM.DCSUM1 ---
Discharge Summary - Discharge Data Discharge Date: 01/03/20 Discharge Disposition: Home, Self-Care 01 Condition: Fair - Referral to Home Health Primary Care Physician: PCP None - Discharge Diagnosis/Problem(s) (1) Transaminitis SNOMED Code(s): 961627983, [id number] ICD Code: R74.0 - NONSPEC ELEV OF LEVELS OF TRANSAMNS & LACTIC ACID DEHYDRGNSE Status: Acute Current Visit: Yes - Patient Summary/Data Consults: Consultations 12/31/19 09:47 PT Evaluation and Treatment [CONS] Routine - Discharge Plan Prescriptions/Med Rec: Vancomycin [First-Vancomycin 25 Compounding Kit] 125 mg PO Q6H 7 Days #2 bottle Folic Acid 1 mg PO BEDTIME #30 tablet Nicotine [Habitrol] 14 mg TRDERM DAILY #30 patch FLUoxetine [PROzac] 10 mg PO DAILY #30 tablet Thiamine [Vitamin B-1] 100 mg PO BEDTIME #30 tab Home Medications: Home Meds FLUoxetine [PROzac] 10 mg PO DAILY #30 tablet 01/03/20 [Rx] Folic Acid 1 mg PO BEDTIME #30 tablet 01/03/20 [Rx] Nicotine [Habitrol] 14 mg TRDERM DAILY #30 patch 01/03/20 [Rx] Thiamine [Vitamin B-1] 100 mg PO BEDTIME #30 tab 01/03/20 [Rx] Vancomycin [First-Vancomycin 25 Compounding Kit] 125 mg PO Q6H 7 Days #2 bottle 01/03/20 [Rx] Patient Handouts: Alcoholic Liver Disease, [id number], Alcohol Intoxication, [id number], Alcohol Abuse and Nutrition Referrals: Komal Bower NP [Ordering Only Provider] - 01/07/20 10:00 am Alber Araiza MD [Physician] - 01/12/20 4:00 pm - Patient Data Vitals - Most Recent: Last Vital Signs Temp 36.8 C 01/03/20 08:10 Pulse 87 01/03/20 08:10 Resp 18 01/03/20 08:10 BP 123/82 01/03/20 08:10 Pulse Ox 98 01/03/20 08:10 Weight - Most Recent: 75.5 kg I&O - Last 24 hours: Intake & Output 01/02/20 01/03/20 01/03/20 22:59 06:59 14:59 Intake Total 0844 3412 Output Total 800 1900 Balance 270 195 Lab Results - Last 24 hrs: Laboratory Results - last 24 hr 01/02/20 01/02/20 01/02/20 Range/Units 12:01 12:03 18:17 WBC (4.0-11.0) K/uL RBC (4.50-5.90) M/uL Hgb (13.0-17.0) g/dL Hct (38.0-50.0) % MCV (80.0-98.0) fL MCH (27.0-32.0) pg MCHC (31.0-37.0) g/dL RDW Std Deviation (28.0-62.0) fl RDW Coeff of Fredis (11.0-15.0) % Plt Count (150-400) K/uL MPV (7.40-12.00) fL Neut % (Auto) (48.0-80.0) % Lymph % (Auto) (16.0-40.0) % Dickens % (Auto) (0.0-15.0) % Eos % (Auto) (0.0-7.0) % Baso % (Auto) (0.0-1.5) % Neut # (Auto) (1.4-5.7) K/uL Lymph # (Auto) (0.6-2.4) K/uL Dickens # (Auto) (0.0-0.8) K/uL Eos # (Auto) (0.0-0.7) K/uL Baso # (Auto) (0.0-0.1) K/uL INR 0.93 Sodium (136-148) mmol/L Potassium (3.5-5.1) mmol/L Chloride (98-107) mmol/L Carbon Dioxide (21.0-32.0) mmol/L BUN (7.0-18.0) mg/dL Creatinine (0.8-1.3) mg/dL Est Cr Clr Drug Dosing mL/min Estimated GFR (MDRD) ml/min Glucose (74-106) mg/dL POC Glucose 105 112 H (60-110) mg/dL Calcium (8.5-10.1) mg/dL Phosphorus (2.6-4.7) mg/dL Magnesium (1.8-2.4) mg/dL Total Bilirubin (0.2-1.0) mg/dL AST (15-37) IU/L ALT (14-63) IU/L Alkaline Phosphatase (46-116) U/L Total Protein (6.4-8.2) g/dL Albumin (3.4-5.0) g/dL Globulin (2.6-4.0) g/dL Albumin/Globulin Ratio (0.9-1.6) 01/03/20 01/03/20 01/03/20 Range/Units 06:05 06:05 06:05 WBC 5.60 (4.0-11.0) K/uL RBC 4.07 L (4.50-5.90) M/uL Hgb 12.7 L (13.0-17.0) g/dL Hct 37.4 L (38.0-50.0) % MCV 91.9 (80.0-98.0) fL MCH 31.2 (27.0-32.0) pg MCHC 34.0 (31.0-37.0) g/dL RDW Std Deviation 51.6 (28.0-62.0) fl RDW Coeff of Fredis 16 H (11.0-15.0) % Plt Count 160 (150-400) K/uL MPV 11.20 (7.40-12.00) fL Neut % (Auto) 48.4 (48.0-80.0) % Lymph % (Auto) 28.4 (16.0-40.0) % Dickens % (Auto) 20.4 H (0.0-15.0) % Eos % (Auto) 2.3 (0.0-7.0) % Baso % (Auto) 0.5 (0.0-1.5) % Neut # (Auto) 2.7 (1.4-5.7) K/uL Lymph # (Auto) 1.6 (0.6-2.4) K/uL Dickens # (Auto) 1.1 H (0.0-0.8) K/uL Eos # (Auto) 0.1 (0.0-0.7) K/uL Baso # (Auto) 0.0 (0.0-0.1) K/uL INR 0.91 Sodium 137 (136-148) mmol/L Potassium 4.0 (3.5-5.1) mmol/L Chloride 104 (98-107) mmol/L Carbon Dioxide 26.7 (21.0-32.0) mmol/L BUN 15 (7.0-18.0) mg/dL Creatinine 0.9 (0.8-1.3) mg/dL Est Cr Clr Drug Dosing 117.37 mL/min Estimated GFR (MDRD) > 60.0 ml/min Glucose 105 (74-106) mg/dL POC Glucose (60-110) mg/dL Calcium 8.5 (8.5-10.1) mg/dL Phosphorus 4.7 (2.6-4.7) mg/dL Magnesium 1.8 (1.8-2.4) mg/dL Total Bilirubin 0.3 (0.2-1.0) mg/dL AST 400 H (15-37) IU/L ALT 561 H (14-63) IU/L Alkaline Phosphatase 136 H (46-116) U/L Total Protein 6.3 L (6.4-8.2) g/dL Albumin 3.3 L (3.4-5.0) g/dL Globulin 3.0 (2.6-4.0) g/dL Albumin/Globulin Ratio 1.1 (0.9-1.6) 01/03/20 Range/Units 06:38 WBC (4.0-11.0) K/uL RBC (4.50-5.90) M/uL Hgb (13.0-17.0) g/dL Hct (38.0-50.0) % MCV (80.0-98.0) fL MCH (27.0-32.0) pg MCHC (31.0-37.0) g/dL RDW Std Deviation (28.0-62.0) fl RDW Coeff of Fredis (11.0-15.0) % Plt Count (150-400) K/uL MPV (7.40-12.00) fL Neut % (Auto) (48.0-80.0) % Lymph % (Auto) (16.0-40.0) % Dickens % (Auto) (0.0-15.0) % Eos % (Auto) (0.0-7.0) % Baso % (Auto) (0.0-1.5) % Neut # (Auto) (1.4-5.7) K/uL Lymph # (Auto) (0.6-2.4) K/uL Dickens # (Auto) (0.0-0.8) K/uL Eos # (Auto) (0.0-0.7) K/uL Baso # (Auto) (0.0-0.1) K/uL INR Sodium (136-148) mmol/L Potassium (3.5-5.1) mmol/L Chloride (98-107) mmol/L Carbon Dioxide (21.0-32.0) mmol/L BUN (7.0-18.0) mg/dL Creatinine (0.8-1.3) mg/dL Est Cr Clr Drug Dosing mL/min Estimated GFR (MDRD) ml/min Glucose (74-106) mg/dL POC Glucose 99 (60-110) mg/dL Calcium (8.5-10.1) mg/dL Phosphorus (2.6-4.7) mg/dL Magnesium (1.8-2.4) mg/dL Total Bilirubin (0.2-1.0) mg/dL AST (15-37) IU/L ALT (14-63) IU/L Alkaline Phosphatase (46-116) U/L Total Protein (6.4-8.2) g/dL Albumin (3.4-5.0) g/dL Globulin (2.6-4.0) g/dL Albumin/Globulin Ratio (0.9-1.6) ELODIA Results - Last 24 hrs: Microbiology 12/28/19 22:34 Aerobic Blood Culture - Final Blood - Venous - Lab Draw NO GROWTH AFTER 5 DAYS Anaerobic Blood Culture - Final NO GROWTH AFTER 5 DAYS 12/28/19 22:20 Aerobic Blood Culture - Final Blood - Venous NO GROWTH AFTER 5 DAYS Anaerobic Blood Culture - Final NO GROWTH AFTER 5 DAYS 12/28/19 20:34 Stool Culture - Final Stool / Feces Shiga Toxin I & II - Final Med Orders - Current: Current Medications Albuterol/Ipratropium (Duoneb 3.0-0.5 Mg/3 Ml) 3 ml NEB Q4HRRT PRN PRN Reason: Shortness Of Breath/wheezing Dextrose/Water (Dextrose 25% In Water) 10 ml IVPUSH ONETIME PRN PRN Reason: Hypoglycemia Last Admin: 12/29/19 01:11 Dose: 10 ml Documented by: Diazepam (Valium.) 2.5 mg PO DAILY [facility] [place] Last Admin: 01/03/20 08:49 Dose: 2.5 mg Documented by: Fluoxetine HCl (Prozac) 10 mg PO DAILY [facility] [place] Last Admin: 01/03/20 08:46 Dose: 10 mg Documented by: Folic Acid (Folic Acid) 1 mg PO BEDTIME [facility] [place] Last Admin: 01/02/20 21:51 Dose: 1 mg Documented by: Thiamine HCl 100 mg/ Sodium (Chloride) 101 mls @ 202 mls/hr IV DAILY [facility] [place] Last Admin: 01/03/20 09:17 Dose: 202 mls/hr Documented by: Lactated Ringer's (Ringers, Lactated) 1,000 mls @ 100 mls/hr IV ASDIRECTED [facility] [place] Last Admin: 01/02/20 23:58 Dose: 100 mls/hr Documented by: Pantoprazole Sodium 40 mg/ (Sodium Chloride) 10 mls @ 300 mls/hr IV Q12H [facility] [place] Last Admin: 01/03/20 08:50 Dose: 300 mls/hr Documented by: Lorazepam (Ativan) 1 mg IVPUSH Q4H PRN PRN Reason: Anxiety Melatonin (Melatonin) 6 mg PO BEDTIME [facility] [place] Last Admin: 01/02/20 21:50 Dose: 6 mg Documented by: Nicotine (Habitrol) 14 mg TRDERM DAILY [facility] [place] Last Admin: 01/03/20 08:46 Dose: 14 mg Documented by: Ondansetron HCl (Zofran) 4 mg IVPUSH Q4H PRN PRN Reason: Nausea/Vomiting Last Admin: 12/30/19 11:43 Dose: 4 mg Documented by: Sodium Chloride (Saline Flush) 10 ml FLUSH ASDIRECTED PRN PRN Reason: Keep Vein Open Sodium Chloride (Saline Flush) 2.5 ml FLUSH ASDIRECTED PRN PRN Reason: Keep Vein Open Vancomycin HCl (First-Vancomycin 25 Compounding Kit) 125 mg PO QID [facility] [place] Last Admin: 01/03/20 06:39 Dose: 5 ml Documented by: Discontinued Medications Calcium Carbonate/Glycine (Tums) 1,000 mg PO ONETIME ONE Stop: 12/29/19 09:48 Last Admin: 12/29/19 12:29 Dose: 1,000 mg Documented by: Calcium Carbonate/Glycine (Tums) 1,000 mg PO ONETIME ONE Stop: 12/29/19 12:01 Last Admin: 12/29/19 13:45 Dose: Not Given Documented by: Calcium Carbonate/Glycine (Tums) 1,000 mg PO ONETIME ONE Stop: 12/30/19 07:22 Last Admin: 12/30/19 07:50 Dose: 1,000 mg Documented by: Diazepam (Valium.) 5 mg PO TID [facility] [place] Last Admin: 12/31/19 05:02 Dose: 5 mg Documented by: Diazepam (Valium.) 5 mg PO BID [facility] [place] Last Admin: 01/01/20 08:41 Dose: 5 mg Documented by: Diazepam (Valium.) 5 mg PO DAILY [facility] [place] Last Admin: 01/02/20 08:38 Dose: 5 mg Documented by: Fluoxetine HCl (Prozac) 10 mg PO BEDTIME [facility] [place] Last Admin: 12/31/19 21:28 Dose: 10 mg Documented by: Sodium Chloride (Normal Saline) 1,000 mls @ 999 mls/hr IV BOLUS ONE Stop: 12/28/19 21:35 Last Admin: 12/28/19 20:47 Dose: 999 mls/hr Documented by: Pantoprazole Sodium 80 mg/ (Sodium Chloride) 20 mls @ 420 mls/hr IVPUSH ONETIME ONE Stop: 12/28/19 22:09 Last Admin: 12/28/19 22:49 Dose: 420 mls/hr Documented by: Lactated Ringer's (Ringers, Lactated) 1,000 mls @ 125 mls/hr IV ASDIRECTED [facility] [place] Last Admin: 12/29/19 04:45 Dose: 125 mls/hr Documented by: Lactated Ringer's (Ringers, Lactated) 1,000 mls @ 999 mls/hr IV .BOLUS ONE Stop: 12/28/19 23:47 Last Admin: 12/28/19 23:34 Dose: 999 mls/hr Documented by: Magnesium Sulfate 4 gm/ Premix 100 mls @ 50 mls/hr IV ONETIME ONE Stop: 12/29/19 01:25 Last Admin: 12/29/19 01:23 Dose: 50 mls/hr Documented by: Multivitamins/Minerals 10 ml/Thiamine HCl 100 mg/ Folic Acid 1 mg/ Sodium Chloride 1,011.2 mls @ 125 mls/hr IV ONETIME ONE Stop: 12/29/19 07:32 Last Admin: 12/29/19 00:55 Dose: 125 mls/hr Documented by: Dextrose/Lactated Ringer's (Dextrose 5%-Lactated Ringers) 1,000 mls @ [facility] Admin: 12/30/19 10:16 Dose: 125 mls/hr Documented by: Magnesium Sulfate 2 gm/ Premix 50 mls @ 50 mls/hr IV ONETIME ONE Stop: 12/30/19 12:11 Last Admin: 12/30/19 11:43 Dose: 50 mls/hr Documented by: Lactated Ringer's (Ringers, Lactated) 1,000 mls @ 100 [facility] Admin: 12/31/19 05:02 Dose: 100 mls/hr Documented by: Magnesium Sulfate 4 gm/ Premix 100 mls @ 50 mls/hr IV ONETIME ONE Stop: 12/31/19 10:09 Last Admin: 12/31/19 09:27 Dose: 50 mls/hr Documented by: Lactated Ringer's (Ringers, Lactated) 1,000 mls @ 999 mls/hr IV .BOLUS ONE Stop: 12/31/19 09:58 Last Admin: 12/31/19 09:43 Dose: 999 mls/hr Documented by: Lactated Ringer's (Ringers, Lactated) 1,000 mls @ 125 mls/hr IV Q8H [facility] [place] Last Admin: 01/01/20 05:32 Dose: 125 mls/hr Documented by: Magnesium Sulfate 2 gm/ Premix 50 mls @ 50 mls/hr IV ONETIME ONE Stop: 01/02/20 08:46 Last Admin: 01/02/20 08:43 Dose: 50 mls/hr Documented by: Iopamidol (Isovue-370 (76%)) 100 ml IVPUSH ONETIME ONE Stop: 12/28/19 21:20 Last Admin: 12/28/19 21:20 Dose: 100 ml Documented by: Lorazepam (Ativan) 1 mg IVPUSH ONETIME ONE Stop: 12/28/19 22:13 Last Admin: 12/28/19 22:53 Dose: 1 mg Documented by: Lorazepam (Ativan) 0 mg IVPUSH Q4H PRN; Protocol PRN Reason: Withdrawal Symptoms Last Admin: 01/01/20 22:09 Dose: 1 mg Documented by: Morphine Sulfate (Morphine) 1 mg IVPUSH Q4H PRN PRN Reason: Pain (severe 7-10) Stop: 12/29/19 22:38 Morphine Sulfate (Morphine) 1 mg IVPUSH Q4H PRN PRN Reason: Pain (severe 7-10) Stop: 12/29/19 22:38 Ondansetron HCl (Zofran) 4 mg IVPUSH ONETIME ONE Stop: 12/28/19 22:08 Last Admin: 12/28/19 22:47 Dose: 4 mg Documented by: Pantoprazole Sodium (Protonix Iv) 40 mg IV Q12HR [facility] [place] Last Admin: 01/02/20 08:32 Dose: 40 mg Documented by: Potassium Chloride (Klor-Con M20) 40 meq PO ONETIME ONE Stop: 12/29/19 14:22 Last Admin: 12/29/19 16:54 Dose: 40 meq Documented by: Potassium Chloride (Klor-Con M20) 40 meq PO ONETIME ONE Stop: 12/30/19 07:22 Last Admin: 12/30/19 07:50 Dose: 40 meq Documented by: Vancomycin HCl (Vancomycin) 125 mg PO Q6H [facility] [place] Last Admin: 12/29/19 01:23 Dose: 125 mg Documented by: Vancomycin HCl (First-Vancomycin 25 Compounding Kit) 125 mg PO QID [facility] [place] Last Admin: 12/29/19 19:46 Dose: Not Given Documented by:
== END 2020-01-03 12:48 | disposition home or self-care (01) | DRG 897 ==
LOC: MW.ED 20:02 → MW.MS 22:24
PROVIDERS: ADMIT Student in an Organized Health Care Education/Training Program; ATTEND Student in an Organized Health Care Education/Training Program
DX: F10.239 Alcohol dependence with withdrawal, unspecified (principal); A04.72 Enterocolitis due to Clostridium difficile, not specified as recurrent; K29.00 Acute gastritis without bleeding; R74.0 Nonspecific elevation of levels of transaminase and lactic acid dehydrogenase [LDH]; F17.200 Nicotine dependence, unspecified, uncomplicated; Z20.828 Contact with and (suspected) exposure to other viral communicable diseases; F10.229 Alcohol dependence with intoxication, unspecified; Y90.8 Blood alcohol level of 240 mg/100 ml or more; E86.0 Dehydration; E83.42 Hypomagnesemia; F32.9 Major depressive disorder, single episode, unspecified; D69.6 Thrombocytopenia, unspecified
CPT/HCPCS: 36415; 74177; 74177-26; 76705; 76705-26; 80053; 80074; 80305-QW; 80307; 81003; 82140; 82803; 82962; 83605; 83690; 83735; 84100; 85025; 85610; 87040; 87045; 87046; 87324; 87328; 87329; 87449; 87493; 87899; 93005; 96361; 96365; 96368; 96375; 97161-GP; 99285; 99285-25; A9270-GY; C9113; J2060; J2405; J3411; J3475; J7030; J7050; J7120; J7121; Q9967; U0002

== ENCOUNTER 2020-03-25 11:47 | Emergency (ER) | payer SELFPAY ==
[2020-03-25] MEDS ORDERED: Sodium Chloride 0.9% 1,000 ML IV ONE (11:55)
--- NOTE | 2020-03-25 12:49 | EDM.PDOC ---
ED HPI GENERAL MEDICAL PROBLEM - General Chief Complaint: Abdominal Pain Stated Complaint: ABDOMINAL PAIN Time Seen by Provider: 03/25/20 11:49 Source of Information: Reports: Patient History Limitations: Reports: No Limitations - History of Present Illness INITIAL COMMENTS - FREE TEXT/NARRATIVE: HISTORY AND PHYSICAL: History of present illness: Patient is a 40-year-old male who presents to the emergency room complaining of feeling generally unwell. He states he is a chronic alcoholic and did drink heavily for the past week. He has also stopped his Prozac this past week. Complaining of generalized abdominal pain, nausea and vomiting x 1 week. Last drink was early this morning. States he feels slightly anxious and jittery. Patient denies any fever, chills, headache, change in vision, syncope or near syncope. Denies any chest pain, back pain, shortness of breath or cough. Denies any diarrhea, constipation or dysuria. Has not noted any blood in urine or stool. Denies any recent injury trauma or falls. Patient has been eating and drinking appropriately. Denies any drug abuse. Review of systems: As per history of present illness and below otherwise all systems reviewed and negative. Past medical history: As per history of present illness and as reviewed below otherwise noncontributory. Surgical history: As per history of present illness and as reviewed below otherwise noncontributory. Social history: See social history for further information Family history: As per history of present illness and as reviewed below otherwise noncontributory. Physical exam: General: Well developed and well nourished 40 year old male. Alert and orientated x 3. Anxious and fidgeting, nontoxic in appearance and in no acute distress. Vital signs are stable and have been reviewed by me. Nursing notes were reviewed. HEENT: Atraumatic, normocephalic, pupils equal and reactive bilaterally, negative for conjunctival pallor or scleral icterus, mucous membranes moist, TMs normal bilaterally, throat clear, neck supple, nontender, trachea midline. No drooling or trismus noted. No meningeal signs. No hot potato voice noted. Lungs: Clear to auscultation, breath sounds equal bilaterally, chest nontender. Normal work of breathing, no accessory muscles used. Heart: S1S2, regular rate and rhythm without overt murmur Abdomen: Soft, nondistended, nontender. Negative for masses or hepatosplenomegaly. Negative for costovertebral tenderness. Skin: Intact, warm, dry. No lesions or rashes noted. Hematologic: No petechiae or purpra. Mucosa appropriate color and normal nail bed color and refill. Extremities: Atraumatic, moves all extremities per self without difficulty or deficits, negative for cords or calf pain. Neurovascular unremarkable. Neuro: Awake, alert, oriented. Cranial nerves II through XII unremarkable. Cerebellum unremarkable. Motor and sensory unremarkable throughout. Exam nonfocal. Psychiatric: Mood and affect are appropriate. Normal thought process. Answering questions appropriately. Notes: Lab work is unremarkable with the exception that his liver functions are elevated, he does trend on the high side (today's values are better than previou s visits). I see that a hepatitis panel was done December 2019, this was negative. Patient states he does not desire any alcohol treatment/outpatient treatment, although I will give him information on this. I have spoken with the patient/caregiver and discussed today's findings, in addition to providing specific details for plan of care. Reassessment at the time of disposition demonstrates that the patient is in no acute distress. The patient has remained stable throughout the entire ED visit and is without objective evidence for acute process requiring urgent intervention or hospitalization. The patient is stable for discharge, counseling was provided and we discussed in great detail signs and symptoms that would prompt them to return to the Emergency Department. Medication, follow up and supportive care measures were reviewed and discussed. Voices understanding and is agreeable to plan of care. Denies any further questions or concerns at this time. Diagnostics: CBC, CMP, UA, Drug Screen, Lipase Therapeutics: IV fluids, Ativan Prescription: None Impression: Alcohol abuse Transaminitis Plan: 1. Consider seeking outpatient alcohol treatment programming. Encourage small frequent sips of fluids to prevent dehydration. [place] diet over the next 24-48 hours, advance as tolerated. 2. Tylenol and/or Ibuprofen as needed for pain and fever management. 3. If you should develop worsening symptoms, new symptoms develop or any of the symptoms we discussed - RETURN to the ED as we discussed. 4. Follow up with your primary care provider as we discussed. Definitive disposition and diagnosis as appropriate pending reevaluation and review of above. - Related Data Allergies Allergy/AdvReac Type Severity Reaction Status Date / Time No Known Allergies Allergy Verified 03/25/20 12:47 Home Meds: Home Meds . [No Known Home Meds] 03/25/20 [History] Past Medical History HEENT History: Reports: None Cardiovascular History: Reports: None Respiratory History: Reports: None Gastrointestinal History: Reports: None Genitourinary History: Reports: None Musculoskeletal History: Reports: Amputation Neurological History: Reports: None Psychiatric History: Reports: None Endocrine/Metabolic History: Reports: None Hematologic History: Reports: None Immunologic History: Reports: None Oncologic (Cancer) History: Reports: None Dermatologic History: Reports: None - Past Surgical History Head Surgeries/Procedures: Reports: None HEENT Surgical History: Reports: None Cardiovascular Surgical History: Reports: None Respiratory Surgical History: Reports: None GI Surgical History: Reports: None Male Surgical History: Reports: None Endocrine Surgical History: Reports: None Neurological Surgical History: Reports: None Musculoskeletal Surgical History: Reports: Other (See Below) Other Musculoskeletal Surgeries/Procedures:: right 2nd toe removed Oncologic Surgical History: Reports: None Dermatological Surgical History: Reports: None Social & Family History - Family History Family Medical History: Noncontributory - Caffeine Use Caffeine Use: Reports: Coffee, Energy Drinks, Soda, Tea ED ROS GENERAL - Review of Systems Review Of Systems: Comprehensive ROS is negative, except as noted in HPI. ED EXAM, GI/ABD - Physical Exam Exam: See Below (See dictation) Course - Vital Signs Last Recorded V/S: Last Vital Signs Temp 97.8 F 03/25/20 12:49 Pulse 119 H 03/25/20 12:49 Resp 20 03/25/20 12:49 BP 136/86 03/25/20 12:49 Pulse Ox 99 03/25/20 12:49 - Orders/Labs/Meds Orders: Active Orders 24 hr Category Date Time Status LORazepam [Ativan] Med 03/25/20 14:52 Once 1 mg IVPUSH ONETIME ONE Labs: Laboratory Tests 03/25/20 03/25/20 03/25/20 Range/Units 12:55 12:55 14:00 WBC 8.27 (4.0-11.0) K/uL RBC 5.32 (4.50-5.90) M/uL Hgb 16.5 (13.0-17.0) g/dL Hct 46.6 (38.0-50.0) % MCV 87.6 (80.0-98.0) fL MCH 31.0 (27.0-32.0) pg MCHC 35.4 (31.0-37.0) g/dL RDW Std Deviation 40.9 (28.0-62.0) fl RDW Coeff of Fredis 13 (11.0-15.0) % Plt Count 95 L (150-400) K/uL MPV 11.80 (7.40-12.00) fL Neut % (Auto) 68.9 (48.0-80.0) % Lymph % (Auto) 23.1 (16.0-40.0) % [place] % (Auto) 7.5 (0.0-15.0) % Eos % (Auto) 0.1 (0.0-7.0) % Baso % (Auto) 0.4 (0.0-1.5) % Neut # (Auto) 5.7 (1.4-5.7) K/uL Lymph # (Auto) 1.9 (0.6-2.4) K/uL [place] # (Auto) 0.6 (0.0-0.8) K/uL Eos # (Auto) 0.0 (0.0-0.7) K/uL Baso # (Auto) 0.0 (0.0-0.1) K/uL Nucleated RBC % 0.0 /100WBC Nucleated RBCs # 0 K/uL Sodium 133 L (136-148) mmol/L Potassium 4.0 (3.5-5.1) mmol/L Chloride 94 L (98-107) mmol/L Carbon Dioxide 24.0 (21.0-32.0) mmol/L BUN 15 (7.0-18.0) mg/dL Creatinine 0.8 (0.8-1.3) mg/dL Est Cr Clr Drug Dosing 130.73 mL/min Estimated GFR (MDRD) > 60.0 ml/min Glucose 110 H (74-106) mg/dL Calcium 8.9 (8.5-10.1) mg/dL Total Bilirubin 1.8 H (0.2-1.0) mg/dL AST 271 H (15-37) IU/L ALT 177 H (14-63) IU/L Alkaline Phosphatase 103 (46-116) U/L Total Protein 7.1 (6.4-8.2) g/dL Albumin 4.0 (3.4-5.0) g/dL Globulin 3.1 (2.6-4.0) g/dL Albumin/Globulin Ratio 1.3 (0.9-1.6) Lipase 360 (73-393) U/L Urine Color YELLOW Urine Appearance CLEAR Urine pH 6.5 (5.0-8.0) Ur Specific [place] 1.015 (1.001-1.035) Urine Protein TRACE H (NEGATIVE) mg/dL Urine Glucose (UA) NEGATIVE (NEGATIVE) mg/dL Urine Ketones 15 H (NEGATIVE) mg/dL Urine Occult Blood TRACE-INTACT H (NEGATIVE) Urine Nitrite NEGATIVE (NEGATIVE) Urine Bilirubin NEGATIVE (NEGATIVE) Urine Urobilinogen 1.0 (<2.0) EU/dL Ur Leukocyte Esterase NEGATIVE (NEGATIVE) Urine RBC 0-1 (0-2/HPF) Urine WBC 0-1 (0-5/HPF) Ur Epithelial Cells RARE (NONE-FEW) Urine Bacteria FEW (NEGATIVE) Urine Opiates Screen (NEGATIVE) Ur Oxycodone Screen (NEGATIVE) Urine Methadone Screen (NEGATIVE) Ur Barbiturates Screen (NEGATIVE) Ur Phencyclidine Scrn (NEGATIVE) Ur Amphetamine Screen (NEGATIVE) U Methamphetamines Scrn (NEGATIVE) U Benzodiazepines Scrn (NEGATIVE) U Cocaine Metab Screen (NEGATIVE) U Marijuana (THC) Screen (NEGATIVE) 03/25/20 Range/Units 14:00 WBC (4.0-11.0) K/uL RBC (4.50-5.90) M/uL Hgb (13.0-17.0) g/dL Hct (38.0-50.0) % MCV (80.0-98.0) fL MCH (27.0-32.0) pg MCHC (31.0-37.0) g/dL RDW Std Deviation (28.0-62.0) fl RDW Coeff of Fredis (11.0-15.0) % Plt Count (150-400) K/uL MPV (7.40-12.00) fL Neut % (Auto) (48.0-80.0) % Lymph % (Auto) (16.0-40.0) % [place] % (Auto) (0.0-15.0) % Eos % (Auto) (0.0-7.0) % Baso % (Auto) (0.0-1.5) % Neut # (Auto) (1.4-5.7) K/uL Lymph # (Auto) (0.6-2.4) K/uL [place] # (Auto) (0.0-0.8) K/uL Eos # (Auto) (0.0-0.7) K/uL Baso # (Auto) (0.0-0.1) K/uL Nucleated RBC % /100WBC Nucleated RBCs # K/uL Sodium (136-148) mmol/L Potassium (3.5-5.1) mmol/L Chloride (98-107) mmol/L Carbon Dioxide (21.0-32.0) mmol/L BUN (7.0-18.0) mg/dL Creatinine (0.8-1.3) mg/dL Est Cr Clr Drug Dosing mL/min Estimated GFR (MDRD) ml/min Glucose (74-106) mg/dL Calcium (8.5-10.1) mg/dL Total Bilirubin (0.2-1.0) mg/dL AST (15-37) IU/L ALT (14-63) IU/L Alkaline Phosphatase (46-116) U/L Total Protein (6.4-8.2) g/dL Albumin (3.4-5.0) g/dL Globulin (2.6-4.0) g/dL Albumin/Globulin Ratio (0.9-1.6) Lipase (73-393) U/L Urine Color Urine Appearance Urine pH (5.0-8.0) Ur Specific [place] (1.001-1.035) Urine Protein (NEGATIVE) mg/dL Urine Glucose (UA) (NEGATIVE) mg/dL Urine Ketones (NEGATIVE) mg/dL Urine Occult Blood (NEGATIVE) Urine Nitrite (NEGATIVE) Urine Bilirubin (NEGATIVE) Urine Urobilinogen (<2.0) EU/dL Ur Leukocyte Esterase (NEGATIVE) Urine RBC (0-2/HPF) Urine WBC (0-5/HPF) Ur Epithelial Cells (NONE-FEW) Urine Bacteria (NEGATIVE) Urine Opiates Screen NEGATIVE (NEGATIVE) Ur Oxycodone Screen NEGATIVE (NEGATIVE) Urine Methadone Screen NEGATIVE (NEGATIVE) Ur Barbiturates Screen NEGATIVE (NEGATIVE) Ur Phencyclidine Scrn NEGATIVE (NEGATIVE) Ur Amphetamine Screen NEGATIVE (NEGATIVE) U Methamphetamines Scrn NEGATIVE (NEGATIVE) U Benzodiazepines Scrn NEGATIVE (NEGATIVE) U Cocaine Metab Screen NEGATIVE (NEGATIVE) U Marijuana (THC) Screen NEGATIVE (NEGATIVE) Meds: Medications Discontinued Medications Generic Name Dose Route Start Last Admin Trade Name Joey PRN Reason Stop Dose Admin Sodium Chloride 1,000 mls @ 999 mls/hr 03/25/20 11:55 03/25/20 12:59 Normal Saline IV 03/25/20 12:55 999 mls/hr STAT ONE Administration Lorazepam 1 mg 03/25/20 12:53 03/25/20 13:01 Ativan IVPUSH 03/25/20 12:54 1 mg ONETIME ONE Administration Departure - Departure Time of Disposition: 14:56 Disposition: Home, Self-Care 01 Clinical Impression: Transaminitis, Alcohol abuse - Discharge Information Instructions: Abdominal Pain, Adult, [id number] Referrals: PCP,None [Primary Care Provider] - Forms: ED Department Discharge Additional Instructions: The following information is given to patients seen in the emergency department who are being discharged to home. This information is to outline your options for follow-up care. We provide all patients seen in our emergency department with a follow-up referral. The need for follow-up, as well as the timing and circumstances, are variable depending upon the specifics of your emergency department visit. If you don't have a primary care physician on staff, we will provide you with a referral. We always advise you to contact your personal physician following an emergency department visit to inform them of the circumstance of the visit and for follow-up with them and/or the need for any referrals to a consulting specialist. The emergency department will also refer you to a specialist when appropriate. This referral assures that you have the opportunity for follow-up care with a specialist. All of these measure are taken in an effort to provide you with optimal care, which includes your follow-up. Under all circumstances we always encourage you to contact your private physician who remains a resource for coordinating your care. When calling for follow-up care, please make the office aware that this follow-up is from your recent emergency room visit. If for any reason you are refused follow-up, please contact the [facility] Emergency Department at and asked to speak to the emergency department charge nurse. [facility] [address] [place] [address] [facility] [address] [place] [address] Thank you for choosing the [facility] emergency department in [facility] for your medical needs today. It was a pleasure caring for you. Today you were seen in the emergency department for abdominal pain and alcohol abuse. 1. Consider seeking outpatient alcohol treatment programming. Encourage small frequent sips of fluids to prevent dehydration. [place] diet over the next 24-48 hours, advance as tolerated. 2. Tylenol and/or Ibuprofen as needed for pain and fever management. 3. If you should develop worsening symptoms, new symptoms develop or any of the symptoms we discussed - RETURN to the ED as we discussed. 4. Follow up with your primary care provider as we discussed. Sepsis Event Note (ED) - Focused Exam Vital Signs: Vital Signs Temp Pulse Resp BP Pulse Ox 03/25/20 12:49 97.8 F 119 H 20 136/86 99 - My Orders Last 24 Hours: My Active Orders 03/25/20 14:52 LORazepam [Ativan] 1 mg IVPUSH ONETIME ONE - Assessment/Plan Last 24 Hours: My Active Orders 03/25/20 14:52 LORazepam [Ativan] 1 mg IVPUSH ONETIME ONE
[2020-03-25] MEDS ORDERED: LORazepam 2 MG/ML SDV IVPUSH ONE ×2 (12:53→14:52)
[2020-03-25 13:29] LABS: BLOOD UREA NITROGEN,BUN 15 mg/dL (7.0-18.0); CHLORIDE,CL 94 mmol/L (98-107); GLUCOSE RANDOM 110 mg/dL (74-106); LIPASE 360 U/L (73-393); SODIUM,NA 133 mmol/L (136-148)
[2020-03-25] MEDS ORDERED: Alum Hydrox/Mag Hydrox/Simeth 15 ML, Metoclopramide 5 MG, Lidocaine 2% 5 ML PO ONE ×3 (15:00)
[2020-03-25 15:32] VITALS: BP 152/66; PULSE 114
== END 2020-03-25 15:27 | disposition home or self-care (01) ==
LOC: MW.ED 11:47
DX: F10.20 Alcohol dependence, uncomplicated (principal); R74.01 Elevation of levels of liver transaminase levels
CPT/HCPCS: 36415; 80053; 80305; 81001; 83690; 85025; 96374; 99284; A9270; J2060; J7030; 99283

== ENCOUNTER 2020-03-27 11:06 | Emergency (ER) | payer SELFPAY ==
--- NOTE | 2020-03-27 11:15 | EDM.PDOC ---
ED HPI GENERAL MEDICAL PROBLEM - General Stated Complaint: COVID TEST Time Seen by Provider: 03/27/20 11:07 Source of Information: Reports: Patient History Limitations: Reports: No Limitations - History of Present Illness INITIAL COMMENTS - FREE TEXT/NARRATIVE: 40-year-old male past medical history alcohol abuse, depression, gastritis presents for nausea, vomiting, abdominal pain over the last 5 or 6 days worsening. Notes that yesterday he had several episodes of emesis and had trouble keeping down water. He notes that his last drink of alcohol was 2 days ago. He feels shaky, subjectively febrile. Denies any's of breath, cough, chest pain. He is very concerned that he has COVID-19. He was seen in the emergency department and had an unremarkable work-up 2 days ago. abdomen Pain Score (Numeric/FACES): 3 - Related Data Allergies Allergy/AdvReac Type Severity Reaction Status Date / Time No Known Allergies Allergy Verified 03/27/20 11:34 Home Meds: Home Meds FLUoxetine HCl [Prozac] 20 mg PO DAILY 03/27/20 [History] Famotidine [Pepcid] 20 mg PO BID 14 Days #28 tab 03/27/20 [Rx] Past Medical History HEENT History: Reports: None Cardiovascular History: Reports: None Respiratory History: Reports: None Gastrointestinal History: Reports: None Genitourinary History: Reports: None Musculoskeletal History: Reports: Amputation Neurological History: Reports: None Psychiatric History: Reports: None Endocrine/Metabolic History: Reports: None Hematologic History: Reports: None Immunologic History: Reports: None Oncologic (Cancer) History: Reports: None Dermatologic History: Reports: None - Infectious Disease History Infectious Disease History: Reports: Chicken Pox - Past Surgical History Head Surgeries/Procedures: Reports: None HEENT Surgical History: Reports: None Cardiovascular Surgical History: Reports: None Respiratory Surgical History: Reports: None GI Surgical History: Reports: None Male Surgical History: Reports: None Endocrine Surgical History: Reports: None Neurological Surgical History: Reports: None Musculoskeletal Surgical History: Reports: Other (See Below) Other Musculoskeletal Surgeries/Procedures:: right 2nd toe removed Oncologic Surgical History: Reports: None Dermatological Surgical History: Reports: None Social & Family History - Family History Family Medical History: Noncontributory - Caffeine Use Caffeine Use: Reports: Coffee, Energy Drinks, Soda, Tea ED ROS GENERAL - Review of Systems Review Of Systems: Comprehensive ROS is negative, except as noted in HPI. ED EXAM, GENERAL - Physical Exam Exam: See Below Exam Limited By: No Limitations General Appearance: Alert, WD/WN, Anxious Throat/Mouth: Normal Voice, No Airway Compromise Head: Atraumatic, Normocephalic Neck: Normal Inspection Respiratory/Chest: No Respiratory Distress, Lungs Clear, Normal Breath Sounds, No Accessory Muscle Use Cardiovascular: Normal Peripheral Pulses, Regular Rate, Rhythm GI/Abdominal: Soft, Non-Tender Extremities: Normal Inspection Neurological: Alert Psychiatric: Normal Affect, Anxious Skin Exam: Warm, Dry, Intact, Normal Color Course - Vital Signs Last Recorded V/S: Last Vital Signs Temp 97.1 F 03/27/20 11:16 Pulse 75 03/27/20 11:16 Resp 18 03/27/20 11:16 BP 154/98 H 03/27/20 11:16 Pulse Ox 99 03/27/20 11:16 - Orders/Labs/Meds Orders: Active Orders 24 hr Category Date Time Status CORONAVIRUS COVID-19 PCR PHL Stat Lab 03/27/20 11:56 Received Sodium Chloride 0.9% [Saline Flush] Med 03/27/20 11:25 Active 10 ml FLUSH ASDIRECTED PRN Sodium Chloride 0.9% [Saline Flush] Med 03/27/20 11:25 Active 2.5 ml FLUSH ASDIRECTED PRN Saline Lock Insert [OM.PC] Stat Oth 03/27/20 11:25 Ordered Medication Orders Sodium Chloride (Saline Flush) 10 ml FLUSH ASDIRECTED PRN PRN Reason: Keep Vein Open Last Admin: 03/27/20 11:52 Dose: 10 ml Documented by: NOEMY Sodium Chloride (Saline Flush) 2.5 ml FLUSH ASDIRECTED PRN PRN Reason: Keep Vein Open Last Admin: 03/27/20 11:52 Dose: 2.5 ml Documented by: NOEMY Labs: Laboratory Tests 03/27/20 03/27/20 03/27/20 Range/Units 11:45 11:45 11:45 WBC 7.10 (4.0-11.0) K/uL RBC 4.90 (4.50-5.90) M/uL Hgb 15.3 (13.0-17.0) g/dL Hct 42.9 (38.0-50.0) % MCV 87.6 (80.0-98.0) fL MCH 31.2 (27.0-32.0) pg MCHC 35.7 (31.0-37.0) g/dL RDW Std Deviation 40.4 (28.0-62.0) fl RDW Coeff of Fredis 13 (11.0-15.0) % Plt Count 55 L (150-400) K/uL MPV 12.30 H (7.40-12.00) fL Neut % (Auto) 79.3 (48.0-80.0) % Lymph % (Auto) 15.5 L (16.0-40.0) % [place] % (Auto) 4.9 (0.0-15.0) % Eos % (Auto) 0.0 (0.0-7.0) % Baso % (Auto) 0.3 (0.0-1.5) % Neut # (Auto) 5.6 (1.4-5.7) K/uL Lymph # (Auto) 1.1 (0.6-2.4) K/uL Lancaster # (Auto) 0.4 (0.0-0.8) K/uL Eos # (Auto) 0.0 (0.0-0.7) K/uL Baso # (Auto) 0.0 (0.0-0.1) K/uL Nucleated RBC % 0.0 /100WBC Nucleated RBCs # 0 K/uL Lactate 1.4 (0.20-2.00) mmol/L Sodium 127 L (136-148) mmol/L Potassium 3.5 (3.5-5.1) mmol/L Chloride 89 L (98-107) mmol/L Carbon Dioxide 23.6 (21.0-32.0) mmol/L BUN 8 (7.0-18.0) mg/dL Creatinine 0.7 L (0.8-1.3) mg/dL Est Cr Clr Drug Dosing 148.79 mL/min Estimated GFR (MDRD) > 60.0 ml/min Glucose 103 (74-106) mg/dL Calcium 9.5 (8.5-10.1) mg/dL Magnesium 1.2 L (1.8-2.4) mg/dL Total Bilirubin 4.0 H (0.2-1.0) mg/dL AST 241 H (15-37) IU/L ALT 201 H (14-63) IU/L Alkaline Phosphatase 110 (46-116) U/L Total Protein 7.2 (6.4-8.2) g/dL Albumin 4.1 (3.4-5.0) g/dL Globulin 3.1 (2.6-4.0) g/dL Albumin/Globulin Ratio 1.3 (0.9-1.6) Lipase 186 (73-393) U/L SARS CoV-2 RNA Rapid DILAN (NEGATIVE) 03/27/20 Range/Units 11:56 WBC (4.0-11.0) K/uL RBC (4.50-5.90) M/uL Hgb (13.0-17.0) g/dL Hct (38.0-50.0) % MCV (80.0-98.0) fL MCH (27.0-32.0) pg MCHC (31.0-37.0) g/dL RDW Std Deviation (28.0-62.0) fl RDW Coeff of Fredis (11.0-15.0) % Plt Count (150-400) K/uL MPV (7.40-12.00) fL Neut % (Auto) (48.0-80.0) % Lymph % (Auto) (16.0-40.0) % Lancaster % (Auto) (0.0-15.0) % Eos % (Auto) (0.0-7.0) % Baso % (Auto) (0.0-1.5) % Neut # (Auto) (1.4-5.7) K/uL Lymph # (Auto) (0.6-2.4) K/uL Lancaster # (Auto) (0.0-0.8) K/uL Eos # (Auto) (0.0-0.7) K/uL Baso # (Auto) (0.0-0.1) K/uL Nucleated RBC % /100WBC Nucleated RBCs # K/uL Lactate (0.20-2.00) mmol/L Sodium (136-148) mmol/L Potassium (3.5-5.1) mmol/L Chloride (98-107) mmol/L Carbon Dioxide (21.0-32.0) mmol/L BUN (7.0-18.0) mg/dL Creatinine (0.8-1.3) mg/dL Est Cr Clr Drug Dosing mL/min Estimated GFR (MDRD) ml/min Glucose (74-106) mg/dL Calcium (8.5-10.1) mg/dL Magnesium (1.8-2.4) mg/dL Total Bilirubin (0.2-1.0) mg/dL AST (15-37) IU/L ALT (14-63) IU/L Alkaline Phosphatase (46-116) U/L Total Protein (6.4-8.2) g/dL Albumin (3.4-5.0) g/dL Globulin (2.6-4.0) g/dL Albumin/Globulin Ratio (0.9-1.6) Lipase (73-393) U/L SARS CoV-2 RNA Rapid DILAN NEGATIVE (NEGATIVE) Meds: Medications Generic Name Dose Route Start Last Admin Trade Name Joey PRN Reason Stop Dose Admin Sodium Chloride 10 ml 03/27/20 11:25 03/27/20 11:52 Saline Flush FLUSH 10 ml ASDIRECTED PRN Administration Keep Vein Open Sodium Chloride 2.5 ml 03/27/20 11:25 03/27/20 11:52 Saline Flush FLUSH 2.5 ml ASDIRECTED PRN Administration Keep Vein Open Discontinued Medications Generic Name Dose Route Start Last Admin Trade Name Joey PRN Reason Stop Dose Admin Diazepam 5 mg 03/27/20 11:25 03/27/20 11:43 Valium. PO 03/27/20 11:26 5 mg ONETIME ONE Administration Famotidine 20 mg 03/27/20 11:25 03/27/20 11:53 Pepcid IVPUSH 03/27/20 11:26 20 mg ONETIME ONE Administration Sodium Chloride 1,000 mls @ 999 mls/hr 03/27/20 11:25 03/27/20 11:51 Normal Saline IV 03/27/20 12:25 999 mls/hr .Bolus ONE Administration Ondansetron HCl 4 mg 03/27/20 11:25 03/27/20 11:51 Zofran IVPUSH 03/27/20 11:26 4 mg ONETIME ONE Administration - Re-Assessments/Exams Free Text/Narrative Re-Assessment/Exam: 03/27/20 11:30 Patient symptoms are consistent with gastritis versus alcohol withdrawal. Will get basic labs, will treat symptomatically with IV fluid bolus, Zofran, Pepcid, Valium. Will get COVID-19 swab per patient's request. 03/27/20 12:26 Patient's Covid test is negative. His labs are grossly unremarkable aside from transaminitis which has been seen on previous lab draws, and hyponatremia to 127. Patient encouraged to quit drinking alcohol, seek outpatient alcohol treatment options, will discharge with Pepcid for possible gastritis. Return precautions were discussed. Departure - Departure Time of Disposition: 12:27 Disposition: Home, Self-Care 01 Condition: Good Clinical Impression: Gastritis Qualifiers: Gastritis type: unspecified gastritis Chronicity: acute Gastritis bleeding: presence of bleeding unspecified Qualified Code(s): K29.00 - Acute gastritis without bleeding - Discharge Information Prescriptions: Famotidine [Pepcid] 20 mg PO BID 14 Days #28 tab Instructions: Gastritis, Adult, [id number] Referrals: PCP,None [Primary Care Provider] - Additional Instructions: [employer]r: [address] [place] [address] The following information is given to patients seen in the emergency department who are being discharged to home. This information is to outline your options for follow-up care. We provide all patients seen in our emergency department with a follow-up referral. The need for follow-up, as well as the timing and circumstances, are variable depending upon the specifics of your emergency department visit. If you don't have a primary care physician on staff, we will provide you with a referral. We always advise you to contact your personal physician following an emergency department visit to inform them of the circumstance of the visit and for follow-up with them and/or the need for any referrals to a consulting specialist. The emergency department will also refer you to a specialist when appropriate. This referral assures that you have the opportunity for follow-up care with a specialist. All of these measure are taken in an effort to provide you with optimal care, which includes your follow-up. Under all circumstances we always encourage you to contact your private physician who remains a resource for coordinating your care. When calling for follow-up care, please make the office aware that this follow-up is from your recent emergency room visit. If for any reason you are refused follow-up, please contact the [facility] Emergency Department at and asked to speak to the emergency department charge nurse. Please follow up with your primary care physician. If you do not have a primary care physician, see below: [facility] [address] [place] [id number] My [facility] [address] [place] [address] Sepsis Event Note (ED) - Focused Exam Vital Signs: Vital Signs Temp Pulse Resp BP Pulse Ox 03/27/20 11:16 97.1 F 75 18 154/98 H 99 - My Orders Last 24 Hours: My Active Orders 03/27/20 11:25 Sodium Chloride 0.9% [Saline Flush] 10 ml FLUSH ASDIRECTED PRN Sodium Chloride 0.9% [Saline Flush] 2.5 ml FLUSH ASDIRECTED PRN Saline Lock Insert [OM.PC] Stat 03/27/20 11:56 CORONAVIRUS COVID-19 PCR PHL Stat - Assessment/Plan Last 24 Hours: My Active Orders 03/27/20 11:25 Sodium Chloride 0.9% [Saline Flush] 10 ml FLUSH ASDIRECTED PRN Sodium Chloride 0.9% [Saline Flush] 2.5 ml FLUSH ASDIRECTED PRN Saline Lock Insert [OM.PC] Stat 03/27/20 11:56 CORONAVIRUS COVID-19 PCR PHL Stat
[2020-03-27] MEDS ORDERED: Diazepam 5 MG Tab PO ONE (11:25)
[2020-03-27] MEDS ORDERED: Famotidine 20 MG/2 ML SDV IVPUSH ONE (11:25)
[2020-03-27] MEDS ORDERED: Ondansetron 4 MG/2 ML SDV IVPUSH ONE (11:25)
[2020-03-27] MEDS ORDERED: Sodium Chloride 0.9% 1,000 ML IV ONE (11:25)
[2020-03-27] MEDS ORDERED: Sodium Chloride 0.9% 10 ML Syringe FLUSH PRN (11:25)
[2020-03-27] MEDS ORDERED: Sodium Chloride 0.9% 2.5 ML Syringe FLUSH PRN (11:25)
[2020-03-27 12:16] LABS: BLOOD UREA NITROGEN,BUN 8 mg/dL (7.0-18.0); CARBON DIOXIDE,CO2 23.6 mmol/L (21.0-32.0); CHLORIDE,CL 89 mmol/L (98-107); GLUCOSE RANDOM 103 mg/dL (74-106); LIPASE 186 U/L (73-393); POTASSIUM,K 3.5 mmol/L (3.5-5.1); SODIUM,NA 127 mmol/L (136-148)
[2020-03-27 12:50] VITALS: BP 144/88; PULSE 97
== END 2020-03-27 12:45 | disposition home or self-care (01) ==
LOC: MW.ED 11:06
DX: K29.00 Acute gastritis without bleeding (principal); Z20.828 Contact with and (suspected) exposure to other viral communicable diseases
CPT/HCPCS: 36415; 80053; 83605; 83690; 83735; 85025; 87635; 96374; 96375; 99284; A9270; J2405; J3490; J7030; 99282; U0002

== ENCOUNTER 2023-05-25 03:26 | Emergency (ER) | payer BC ==
[2023-05-25] MEDS ORDERED: Sodium Chloride 0.9% 2.5 ML Syringe FLUSH PRN (03:40)
[2023-05-25] MEDS ORDERED: Ondansetron 4 MG/2 ML SDV IVPUSH ONE (03:40)
[2023-05-25] MEDS ORDERED: Sodium Chloride 0.9% 1,000 ML IV ONE (03:40)
[2023-05-25] MEDS ORDERED: Sodium Chloride 0.9% 10 ML Syringe FLUSH PRN (03:40)
[2023-05-25] MEDS ORDERED: Ketorolac 30 MG/ML SDV IVPUSH ONE (03:40)
[2023-05-25 03:46] LABS: BASOPHILS ABSOLUTE AUTO 0.04 K/uL (0.00-0.20); BASOPHILS PERCENT AUTO 0.3 % (0.0-1.0); EOSINOPHILS ABSOLUTE AUTO 0.26 K/uL (0.00-0.45); EOSINOPHILS PERCENT AUTO 2.2 % (0.0-6.0); HEMATOCRIT 46.9 % (42.0-52.0); HEMOGLOBIN 16.4 g/dL (14.0-18.0); IMMATURE GRAN ABSOLUTE AUTO 0.04 K/uL (0.00-0.05); IMMATURE GRAN PERCENT AUTO 0.3 % (0.0-0.4); LYMPHOCYTES ABSOLUTE AUTO 3.99 K/uL (1.00-4.80); LYMPHOCYTES PERCENT AUTO 33.5 % (24.0-44.0); MEAN CORPUSCULAR HEMOGLOBIN 30.9 pg (28.0-32.0); MEAN CORPUSCULAR VOLUME 88.3 fL (83.0-99.0); MONOCYTES ABSOLUTE AUTO 0.89 K/uL (0.00-0.80); MONOCYTES PERCENT AUTO 7.5 % (0.0-8.0); NEUTROPHILS ABSOLUTE AUTO 6.69 K/uL (1.80-7.70); NEUTROPHILS PERCENT AUTO 56.2 % (41.0-71.0); PLATELET COUNT,PLT 234 K/uL (150-400); RED BLOOD CELL COUNT 5.31 M/uL (4.52-5.90); WHITE BLOOD CELL COUNT,WBC 11.91 K/uL (3.9-11.3)
[2023-05-25 03:49] LABS: APPEARANCE,URINE SLT CLOUDY; BILIRUBIN,URINE NEGATIVE (NEGATIVE); COLOR,URINE YELLOW; GLUCOSE,URINE NEGATIVE (NEGATIVE); KETONES,URINE NEGATIVE (NEGATIVE); LEUKOCYTE ESTERASE,URINE NEGATIVE (NEGATIVE); NITRITE,URINE NEGATIVE (NEGATIVE); OCCULT BLOOD,URINE NEGATIVE (NEGATIVE); PH,URINE 7.5 (5.0-8.0); PROTEIN,URINE NEGATIVE (NEGATIVE); UROBILINOGEN,URINE 0.2 EU/dL (<2.0)
[2023-05-25 04:10] LABS: A/G RATIO 1.1 (0.9-1.6); ALBUMIN 4.1 g/dL (3.4-5.0); BILIRUBIN TOTAL 1.1 mg/dL (0.2-1.0); CALCIUM 9.5 mg/dL (8.5-10.1); CARBON DIOXIDE,CO2 30.8 mmol/L (21.0-32.0); CREATININE 1.1 mg/dL (0.8-1.3); EST CRCL DRUG DOSING (CG) 92.22 mL/min; POTASSIUM,K 3.3 mmol/L (3.5-5.1); PROTEIN TOTAL,TP 7.8 g/dL (6.4-8.2)
[2023-05-25] MEDS ORDERED: Iopamidol 755 MG/ML 500 ML Multipack Bottle IVPUSH ONE (04:13)
[2023-05-25 04:42] LABS: CORONAVIRUS COVID-19 NAA POSITIVE (NEGATIVE); INFLUENZA A NAA NEGATIVE (NEGATIVE); INFLUENZA B NAA NEGATIVE (NEGATIVE)
[2023-05-25 05:43] VITALS: BP 117/74; PULSE 78
== END 2023-05-25 05:42 | disposition home or self-care (01) ==
LOC: MW.ED 03:26
DX: U07.1 COVID-19 (principal); R10.11 Right upper quadrant pain; R10.13 Epigastric pain
CPT/HCPCS: 0240U; 36415; 74177; 80053; 81003; 83690; 85025; 96361; 96374; 96375; 99284; J1885; J2405; J3490; J7030; Q9967